=== PATIENT | male | born 1945 | race Caucasian/White ===

== ENCOUNTER 2019-08-18 12:52 | Inpatient (IN) | payer MEDICARE, OTHER ==
[~2019-08-18 12:52] MED LIST: Iopamidol-370 76% 500 ML 1 ML ONE
[2019-08-18] MEDS ORDERED: Ondansetron PF 4 MG/2 ML Vial ONE ×2 (13:34)
[2019-08-18 13:53] LABS: #Basophils 0.1 thou/uL (0.0-0.2); #Eosinphils 0.1 thou/uL (0.0-0.7); #Neutrophils 8.6 thou/uL (1.40-6.50); %Basophils 0.8 % (0.0-1.0); %Eosinophils 0.9 % (0.0-10.0); %Lymphocytes 16.9 % (21.0-51.0); %Monocytes 8.5 % (0.0-10.0); %Neutrophils 72.9 % (42.0-75.0); Hemoglobin 14.6 g/dL (14.0-18.0); Mean Corpuscular HGB CONC 33.8 g/dL (32.0-36.0); Mean Corpuscular Hemoglobin 29.8 pg (27.0-31.0); Mean Corpuscular Volume 88.1 fL (78.0-98.0); Mean Platelet Volume 9.4 fL (7.4-10.4); Platelet Count 248 thou/uL (130-400); Red Blood Cell (RBC) Count 4.91 mill/uL (4.70-6.10); White Blood Cell (WBC) Count 11.8 thou/uL (4.8-10.8)
--- NOTE | 2019-08-18 14:04 | RAD ---
XR Chest 1 View Portable History: Altered mental status Comparison: None. Findings: Lungs are mildly hyperinflated. Bilateral upper lobe spiculated nodules. Heart size upper l imits of normal. No acute osseous abnormality. No acute osseous abnormality. Impression: Bilateral upper lobe worrisome nodules for which CT chest recommended.
[2019-08-18 14:14] LABS: ALT (SGPT) 24 U/L (8-55); AST (SGOT) 30 U/L (5-34); Albumin 4.1 g/dL (3.4-4.8); Alkaline Phosphatase 109 U/L (40-110); Anion Gap 15 mmol/L (10-20); BUN (Urea Nitrogen) 11 mg/dL (8.4-25.7); Bilirubin, Total 0.9 mg/dL (0.2-1.2); CK (CPK) 167 U/L (30-200); Calc. Creatinine Clearance 0 mL/min (70-130); Calcium 8.9 mg/dL (7.8-10.44); Carbon Dioxide 20 mmol/L (23-31); Chloride 106 mmol/L (98-107); Estimated GFR-MDRD Greater than 90; Globulin 2.5 g/dL (2.4-3.5); Glucose 196 mg/dL (83-110); Lipase 8 U/L (8-78); Potassium 4.5 mmol/L (3.5-5.1); Protein, Total 6.6 g/dL (5.8-8.1); Sodium 136 mmol/L (136-145)
--- NOTE | 2019-08-18 14:24 | CT ---
CT Brain WO Con HISTORY: Altered mental status. COMPARISON: None. FINDINGS: There is generalized ventricular and sulcal prominence. There is calcification within the b rainstem incidentally noted. There is decreased attenuation to the periventricular white matter consistent with chronic white matter change. There is an area of decreased attenuation in the right side of the cerebellum which would suggest an acute to subacute infarct. There is marked right maxillary sinus mucosal change, also some bilateral ethmoid air cell changes. IMPRESSION: An area of decreased attenuation the right side of the cerebellum most suggestive of an a cute to subacute infarct, less likely a mass. Findings telephoned to Dr. Koo.
[2019-08-18 14:53] LABS: Acetaminophen Less than 6.0 mcg/mL (10.0-30.0); Alcohol Less than 10 mg/dL (Less than 10); Salicylate Less than 8.0 mg/dL (15.0-30.0)
[2019-08-18] MEDS ORDERED: Labetalol HCl 100 MG/20 ML VIAL SLOW IVP PRN (15:44)
--- NOTE | 2019-08-18 16:22 | CT ---
CT CHEST WITH CONTRAST CLINICAL INDICATION: Evaluate lung nodules. Left arm weakness. Prior chest x-ray suggested bilateral upper lobe pulmonary nodules. COMPARISON: None FINDINGS: Aorta: Vascular calcifications are seen in the thoracic aorta. The thoracic aorta is normal in calibe r without evidence of an aortic dissection. Lungs: Bullous emphysematous changes are seen in the upper lung zones. Linear areas of scarring are s een in each lung apex as well as upper lobes bilaterally. Prominent irregular linear densities are seen in the left upper lobe/lung apex with associated small nodular appearing density measuring appro ximately 9 mm. This could be attributable to scarring in the left lung apex and left upper lobe. A 9 mm pulmonary nodule with slightly spiculated margins is seen in the right upper lobe adjacent to the prominent bullous emphysematous changes. No additional discrete pulmonary nodule or mass is seen. No pleural effusion is identified. Mediastinum: No enlarged mediastinal lymph nodes are seen by CT size criteria. Minimal increase in so ft tissue density seen in the right hilar region which could be related to mild prominence of lymph nodes in this region. Thyroid gland: An 11 mm hypodense nodule is seen in the left lobe of the thyroid gland. Follow-up thy roid ultrasound is recommended on a nonemergent basis. Osseous structures: Degenerative changes are seen in the spine. There is a mild compression fracture of the T11 vertebral body of indeterminate age but may be more remote in origin. No lytic or sclerotic osseous lesions are identified. Chest wall: No abnormality visualized. Upper abdomen: Increased density is seen layering dependently within the gallbladder lumen likely rel ated to multiple gallbladder calculi. Remainder of the visualized upper abdomen demonstrates a normal CT appearance for phase of imaging. IMPRESSION: 1. Spiculated appearing 9 mm pulmonary nodule right upper lobe. A PET CT scan examination may be bene ficial for further evaluation. 2. Findings which are thought to most likely be attributable to scarring in the left upper lobe and l eft lung apex although there is slight nodularity present measuring 9 mm. This can also be reevaluated on PET CT scan examination. 3. Left thyroid nodule measuring 11 mm. Nonemergent thyroid ultrasound is recommended. 4. Chronic lung changes. 5. Questionable mild prominence in right hilar lymph nodes. 6. Cholelithiasis.
--- NOTE | 2019-08-18 16:51 | HP ---
CHIEF COMPLAINT: Inability to walk. HISTORY OF PRESENT ILLNESS: This patient is a 74-year-old male with strong family history of cancer, history of smoking, and a skin lesion on his chin that has been present for over 10 years. The patient does not see physicians and says the last time to see a physician was about 11 years ago when his and he needed something to help him sleep briefly. The patient was in his usual state of health on Sunday. He lives with his son and they come to town on Fridays to do their shopping. They reported that he was doing fine at that time, but by that evening, the patient reported that he was unable to walk. He has been unable to walk through the weekend, Sunday night he also had some associated nausea and vomiting. He denies any specific sense of weakness, although he does have some tingling in his left arm and occasionally he feels numb or a bit weak. The family also reports today that he called his daughter and told her he was worried that he had a stroke. At that time, his vision was very altered. She had a difficult time understanding him and felt like he was disoriented. REVIEW OF SYSTEMS: The patient has lost about 40 pounds. He says it is over a long stretch of time and family says it has been more recent. He has normal bowel and bladder habits, very poor appetite, very poor p.o. intake. He denies significant coughing or choking, although occasionally he does cough with his snuff. All other systems reviewed all pertinent positives and negatives noted in the HPI. PAST MEDICAL HISTORY: Notable for the skin lesion growing on his right chin for over 10 years. PAST SURGICAL HISTORY: He had back surgery remotely. FAMILY HISTORY: Mother had lung cancer, colon cancer. Sister has colon cancer. SOCIAL HISTORY: The patient smoked more than a pack of cigarettes per day. Quit about 4 years ago. He has been dipping snuff since that time. Denies alcohol or drugs. His about a decade ago. His daughter would be his surrogate decision maker. He is full code. CURRENT MEDICATIONS: None. ALLERGIES: NONE. PHYSICAL EXAMINATION: VITAL SIGNS: On arrival, BP 167/93, currently 164/119; respirations 20, temperature 97.7, O2 saturations 94% on room air. GENERAL APPEARANCE: Age-appropriate male. He is in no distress. He is awake, alert. He is appropriate, conversant. His speech is very slightly difficult to understand. HEENT: He has small abrasion on the top of his right scalp and he has the lesion growing on the right chin area which basically looks like a large scab. He has no OP lesions. Very few teeth. Poor dentition. NECK: Supple and symmetric without lymphadenopathy, JVD, or bruits. HEART: Regular rate and rhythm without murmurs, gallops, or rubs. LUNGS: Diminished throughout without wheezes or rales with fair air exchange. ABDOMEN: Soft, nontender, and nondistended. Positive bowel sounds. No masses. No organomegaly. EXTREMITIES: No cyanosis, clubbing, or edema. NEURO: The patient moves all extremities spontaneously. Cranial nerves are intact. He has fairly normal speech pattern. EXTREMITIES: Appear to have normal strength without focal deficits. PSYCH: Normal affect and behavior. LABORATORY DATA: White count 11.8, hemoglobin 14.6, platelets 248. Sodium 136, potassium 4.5, chloride 106, CO2 of 20, BUN 11, creatinine 0.75, glucose 196, lactic acid 2.4, calcium 8.9, AST 30, ALT 24, alkaline phosphatase 109, ammonia 21. Troponin less than 0.01. Albumin is 4.1, lipase 8. TSH 1.19. Salicylates, acetaminophen, and plasma alcohol all negative. Flu screen negative. Brain CT, there is an area of decreased attenuation in the right side of the cerebellum, most suggestive of an acute to subacute infarct, less likely a mass. Chest x-ray, bilateral upper lobes worrisome for nodules. CT is recommended. EKG shows right bundle branch block, posterior fascicular block. IMPRESSION AND PLAN: 1. Acute cerebellar cerebrovascular accident, manifest with inability to walk and associated falls. The patient is going to be started on a statin and aspirin. Stroke team will be consulted. Neurology consulted. It is likely subacute with this occurring likely on Sunday. Also concerning for the possibility of a metastatic lesion. We will obtain MRI of the brain. We will go ahead and get echocardiogram, carotid Dopplers. 2. Abnormal chest x-ray and the patient with a history of significant tobacco abuse and strong family history of cancer. We will obtain a CT of the chest with and without contrast. 3. Skin lesion in the right chin consistent with cancer, difficult to tell at this point if it is basal cell versus squamous cell, but certainly could be a source of metastatic disease as well. Unfortunately, the biopsy of this lesion may not give us the full answer as to what is going on with the lungs if there does appear to be metastatic lesions. 4. Hypertension. The patient's baseline is not known, this likely in response to his acute cerebrovascular accident. We will have some permissive hypertension orders in place. 5. Bifascicular block on EKG. We will await the results of his echocardiogram to make further determinations on treatment there. Job ID: [id number] [facility]
[2019-08-18 17:35] LABS: Lactic Acid 2.2 mmol/L (0.5-2.2)
--- NOTE | 2019-08-18 18:51 | MRI ---
MRI BRAIN WITHOUT CONTRAST: HISTORY: Left-sided weakness. Stroke. COMPARISON: CT head also obtained on this date. FINDINGS: As noted on the CT scan examination, there is an area of increased FLAIR and T2 weighted signal inten sity seen in the right cerebellar hemisphere, which does demonstrate restricted diffusion and is sugg estive of an acute to early subacute right cerebellar infarction. The area of acute to subacute infar ction also involves a portion of the right cerebellar peduncle, as well as the right aspect of the mi d brain. No additional acute infarction is seen. There are scattered punctate and patchy areas of increased FLAIR and T2 weighted signal intensity in the periventricular and subcortical white matter, which are nonspecific but likely reflective of dicer operator rome small vessel ischemic changes. There is a focus of increased density seen within the doroteo on the CT scan examination, which is repre sented by a subtle area of diminished signal intensity on the T2 and gradient echo images and this is again likely related to calcification. Mild cerebral and cerebellar volume loss is present. The septum pellucidum and third ventricle are in the midline. The ventricular system is normal in size, shape and position for the degree of sulcal a trophy. There is ectasia of the distal left vertebral artery and basilar artery. The right vertebral artery p robably terminates in PICA. There are otherwise grossly appropriate flow voids demonstrated at the ba se of the brain. Mucosal thickening is seen in the sphenoid sinuses bilaterally and greater involving the right maxill miriam antrum as well as ethmoidal air cells. [place] lenses are not visualized bilaterally. Degenerative changes are seen in the visualized upper cervical spine. IMPRESSION: 1. Acute to early subacute infarction in the right cerebellar hemisphere and involving a portion of t he right middle cerebellar peduncle as well as a small portion of the right aspect of the mid brain. 2. Chronic small vessel ischemic changes and cerebral volume loss. 3. Ectasia of the left vertebral and basilar artery. 4. Sinus disease. POS: OFF
[2019-08-18] MEDS: Atorvastatin Calcium 40 MG TAB PO SCH (21:18)
[2019-08-18] MEDS: Sodium Chloride 0.9% 1,000 ML IV SCH (21:21)
[2019-08-19 05:20] LABS: Cardiac Risk 4.7 (Less than 4.5)
[2019-08-19] MEDS ORDERED: Prevnar 13-Val Conj/PF 0.5 ML SYRINGE IM ONE (09:00)
[2019-08-19] MEDS ORDERED: FLU VACC TS2019-20(65YR UP)/PF 180 MCG/0.5 ML SYRINGE IM ONE (09:00)
[2019-08-19] MEDS: Aspirin 325 mg Enteric Coated Tablet PO SCH (09:46)
[2019-08-19] MEDS: Sodium Chloride 0.9% 1,000 ML IV SCH ×2 (09:46→22:17)
--- NOTE | 2019-08-19 10:57 | PRG ---
DATE OF SERVICE: 08/19/2019 SUBJECTIVE: The patient is seen and examined at the bedside. He is very tired after his PT. He walked barely to the door and back with a walker and he is exhausted. OBJECTIVE: VITAL SIGNS: Blood pressure is 133/85, pulse is 93, temperature is 98.2, respirations 20, and O2 saturation is 96% on room air. HEENT: His head is atraumatic and normocephalic. Eyes are PERRLA. Sclerae are nonicteric. Oral mucosa is slightly dry. NECK: Supple. LUNGS: Clear. HEART: S1, S2 normal. No S3. No S4. No any murmur. ABDOMEN: Soft, nontender, nondistended. EXTREMITIES: No clubbing, cyanosis, or edema. NEUROLOGIC: He is following my commands. He moves his all 4 extremities. I do not appreciate much of any motor deficits. Cranial nerves are intact. LABORATORY DATA: Triglycerides 143, cholesterol 140, LDL 81, HDL 30. IMPRESSION: 1. Acute cerebellar cerebrovascular accident. The patient is started on aspirin and statin. Neurology is consulted. It is pending. 2. Nodule of the right upper lobe. Pulmonary to be consulted. 3. Skin lesion on his vaz, status post recent bleeding, most likely cancerous growth, unknown etiology at this point. The workup is postponed since we prioritize and address the main issues first. 4. Hypertension. 5. Bifascicular block on EKG. Echocardiogram is pending. 6. Thyroid nodule. Thyroid ultrasound for further evaluation later during this hospitalization or outpatient basis. Job ID: [id number]
[2019-08-19] MEDS: Ondansetron PF 4 MG/2 ML Vial IVP PRN (11:33)
--- NOTE | 2019-08-19 16:48 | ULT ---
Carotid duplex sonogram HISTORY: CVA. Vascular disease. FINDINGS: Right: Mild plaque. Color and spectral Doppler evaluation, peak systolic velocity of 76 cm/s, and IC to CC ratio of 1.1 suggest no hemodynamically significant stenosis within the extracranial right ICA. Antegrade flow within the vertebral artery. Left: Scattered plaque. Color and spectral Doppler evaluation, peak systolic velocity of 86 cm/s, and IC to CC ratio 0.9 suggest no hemodynamically significant stenosis within the extracranial left ICA. Antegrade flow within the vertebral artery. IMPRESSION: Atherosclerosis. No sonographic evidence of significant extracranial ICA stenosis.
[2019-08-19] MEDS: Atorvastatin Calcium 40 MG TAB PO SCH ×2 (22:20→22:22)
--- NOTE | 2019-08-19 23:32 | CON ---
DATE OF CONSULTATION: 08/19/2019 IMPRESSION: 1. Right cerebellar stroke. 2. Possible lung cancer. PLAN: 1. Continue aspirin and statin as you have undertaken. 2. Review echocardiogram. HISTORY OF PRESENT ILLNESS: Mr. Carmona is a 74-year-old man who developed symptoms this past weekend. He reported feeling ill and was nauseous and vomited. He was very nonspecific about his symptoms. He decided at some point that he thought he had had a stroke and decided to come to the hospital. His MRI revealed a right cerebellar infarct. He has some moderate small-vessel ischemic changes as well and there is vertebral artery ectasia present as well. He has no past history of strokes. He dips tobacco and has not smoked in several years. There has been some weight loss of about 40 pounds over the last few months. The family has kind of attributed this to a poor appetite. There is a history of some hypertension, but he was not on any medication. PAST MEDICAL HISTORY: Otherwise negative. ALLERGIES: NONE REPORTED. SOCIAL HISTORY: Dips tobacco. FAMILY HISTORY: Noncontributory. REVIEW OF SYSTEMS: Ten-system review of systems was not obtainable due to the patient's uncooperative state. PHYSICAL EXAMINATION: GENERAL: He is a somewhat overweight elderly man, lying in bed quietly. HEENT: Normocephalic and atraumatic. NECK: Supple. EXTREMITIES: No cyanosis. NEUROLOGIC: He would nod his head to questions. I could not get him to verbalize. He was not willing to cooperate with exam, otherwise. Speech Therapy has done an assessment, he had aspiration when checked this morning. IMAGING STUDIES: EKG shows a bifascicular block. Carotid ultrasound shows no significant areas of stenosis. Cholesterol ratio was 4.7. SUMMARY: Agree with current management. He will possibly need inpatient rehab, but I would expect a good prognosis for recovery given the location of his stroke. Job ID: [id number]
[2019-08-20] MEDS: Sodium Chloride 0.9% 1,000 ML IV SCH ×2 (01:21→19:01)
[2019-08-20] MEDS: Aspirin 325 mg Enteric Coated Tablet PO SCH (09:00)
[2019-08-20] MEDS ORDERED: Dextrose 5% in Water 1,000 ML IV PRN (09:34)
[2019-08-20] MEDS ORDERED: Dextrose 50 % In Water 50 ML SYRINGE IV PRN (09:34)
[2019-08-20] MEDS ORDERED: PROPOFOL 200 MG/20 ML VIAL ONE (09:59)
[2019-08-20] MEDS ORDERED: Carvedilol 3.125 MG TAB PO SCH (10:00)
--- NOTE | 2019-08-20 10:22 | RAD ---
EXAM: Modified barium swallow with speech therapist HISTORY: Feeding difficulties and dysphasia FINDINGS/IMPRESSION: A modified barium swallow was performed by the speech therapist. A video was performed. Aspiration wa s seen with thin liquids, nectar thick liquids, and honey thick liquids. Please see dedicated speech therapy report for specific findings and recommendations.
--- NOTE | 2019-08-20 10:24 | CON ---
DATE OF CONSULTATION: 08/20/2019 SERVICE: Pulmonary Medicine. REASON FOR CONSULT: Pulmonary nodule. HISTORY OF PRESENT ILLNESS: The patient is a 74-year-old male with past medical history significant for smoking and emphysema. He presented to the hospital with stroke-like symptoms and was ultimately discovered to have a cerebellar lesion. He is recovering from that with physical therapy and occupational therapy. Either way, during investigation, he had an abnormal chest x-ray. This prompted a CT of the chest, which showed a small 9 mm spiculated nodule in the left upper lobe. This has never been identified or addressed before. He denies any hemoptysis, significant weight reduction, night sweats. Otherwise, he is in his usual state of health. PAST MEDICAL HISTORY: 1. CVA. 2. This patient is estranged from the medical community. PAST SURGICAL HISTORY: Back surgery. FAMILY HISTORY: Noncontributory. SOCIAL HISTORY: He quit smoking about four years ago, but prior to that, he logged about 40 to 45 pack year history of smoking. He has been using some snuff. Denies any significant alcohol. He has never used any illicit drugs. He has no exposures to chemicals, dust, asbestos, or tuberculosis that he is aware of. ALLERGIES: CODEINE. MEDICATIONS: List of his inpatient medications was reviewed. No specific updates were made at this time. REVIEW OF SYSTEMS: General, head, ears, eyes, nose, throat, cardiovascular, respiratory, GI, , musculoskeletal, neurologic, and skin is negative except as mentioned in the HPI. PHYSICAL EXAMINATION: VITAL SIGNS: Afebrile, pulse 87, blood pressure 154/82, respirations 20, and saturation 96%, currently on room air. GENERAL: The patient is awake and alert, in no apparent distress. LUNGS: Very good air entry. There is a prolonged expiratory phase, but I do not appreciate any wheezing. No crackles or rhonchi appreciated. HEART: Normal rate. Regular. ABDOMEN: Soft, nontender, and nondistended. Bowel sounds are positive. MUSCULOSKELETAL: No cyanosis or clubbing. No pitting in the bilateral lower extremities. LABORATORY DATA: WBC 11.8, hemoglobin 14.6, and platelets 248,000. Lactate is downtrending to 2.2 and ammonia is normal. Troponin and TSH are unremarkable. Lipid profile is remarkably normal. Basic metabolic profile, liver function studies, BNP, and lipase are all also unremarkable. Salicylates, acetaminophen , and alcohol level are all low. One out of two blood cultures growing a likely contaminant. Influenza A and B are negative. IMAGIN. CT of the brain demonstrates a lesion in the right cerebellum. 2. MRI of the brain confirms likely acute to subacute CVA of the right cerebellum. 3. CT of the chest demonstrates a spiculated biapical nodule in the upper lobes. This is in a region, possibly consistent with scar tissue. In addition to this , the patient has [id number] emphysematous changes throughout bilateral lung hall. ASSESSMENT: 1. Emphysema based on CT scan. 2. Pulmonary nodules. 3. Cerebrovascular accident, recent. DISCUSSION AND PLAN: At this point, the patient has about a 20% chance of this being a malignancy. The fact that there is multiple nodules located in the biapical region suggests that we could be dealing with scar tissue; however. At this point, these are in challenging locations to sample. I would recommend just simply doing a PET scan in three months. I will have him return to clinic with me at that point in the outpatient setting. He has no further requirements for inpatient Pulmonary or Critical Care opinion, and I will sign off. Please call with additional questions or concerns through time. 70 minutes have been devoted to this patient in various activities. I personally reviewed all imaging studies and laboratory data noted within this document. For fifty percent of this time, I was interacting with the patient at the bedside or coordinating care with the care team. For the remainder of the time I was immediately available to the patient in the hospital unit. Job ID: [id number] [facility]
--- NOTE | 2019-08-20 10:30 | PRG ---
DATE OF SERVICE: 08/20/2019 SUBJECTIVE: The patient is seen examined at bedside. There were no any unexpected events overnight. It was noticed that he aspirates during the speech evaluation. OBJECTIVE: VITAL SIGNS: Blood pressure is 154/82, pulse is 87, temperature is 98.7, respiratory rate is 20, and O2 saturation is 96% on room air. NECK: Supple. LUNGS: Clear. HEART: S1 and S2 normal. No S3. No S4. ABDOMEN: Soft, nontender, nondistended. EXTREMITIES: No clubbing, cyanosis, or edema. He has good strength in upper and lower extremities. NEUROLOGIC: He follows my commands. He is alert and oriented x3. LABORATORY DATA: None today. Microbiology; one out of two cultures growing coagulase-negative Staphylococcus, which is most likely contaminant. Echocardiogram showed LVEF estimated at 50% to 55%, grade 1/3 diastolic dysfunction, mild mitral regurgitation, and mild tricuspid regurgitation. A carotid duplex sonogram showed atherosclerosis. No sonographic evidence of significant extracranial ICA stenosis. IMPRESSION: 1. Acute cerebrovascular accident. The patient was seen by Dr. Vang, and he agrees with current regimen with aspirin daily. He has some evidence of aspiration, so we will do swallow studies today and barium swallow study. 2. Pulmonary nodule, seen by Dr. Roa on consultation. The plan is to recheck the status of that problem in three months. 3. Skin growth on the chin. We will get Dr. Charles, plastic surgeon, to take a look at him and see whether this can be biopsied and diagnosed. 4. Hypertension. 5. Bifascicular block on EKG. Echocardiogram shows some mild systolic and diastolic dysfunction. 6. Congestive heart failure, compensated. 7. Thyroid nodule. Thyroid ultrasound will be done most likely on outpatient basis for further diagnostic workup. DISCUSSION: The patient most likely is going to recover from this CVA according to neurologist evaluation. He will need probably rehabilitation center stay. We will do barium swallow studies today to evaluate his swallowing for aspiration. He will have followup with Dr. Roa in three months on his lung nodule, and we will get Dr. Charles for plastic surgery evaluation of his skin growth on his chin, and I will start him on Coreg 3.125 mg twice a day for his heart. Job ID: [id number]
--- NOTE | 2019-08-20 12:33 | PQF ---
EMILIA SMITH SR, ZBIGNIEW A MD [id number] [facility] [id number] CLINICAL DOCUMENTATION IMPROVEMENT CLARIFICATION FORM: ICD-10 Updated PLEASE DO AN ADDENDUM TO THE PROGRESS NOTE WITH ANY DOCUMENTATION UPDATES OR ADDITIONS AND CARRY THROUGH TO DC SUMMARY. THANK YOU. Date: 08/20/2019 ATTN: DR. Torie MCMULLEN Please exercise your independent, professional judgment in responding to the clarification form. Clinical indicators are provided on the bottom of this form for your review. Please check appropriate box(s): [ ] Protein Calorie Malnutrition: [ ] Mild [ ] Moderate [ ] Severe [ ] Other Malnutrition (please specify) __ [ ] Underweight without malnutrition [ ] Cachexia [ ] Other diagnosis [ x] Unable to determine In addition, please specify: Present on Admission (POA): [ ] Yes [ ] No [ x] Unable to determine CLINICAL INDICATORS - SIGNS / SYMPTOMS / LABS / RESULTS AND LOCATION IN MR 08/18 H&P (FICKLEN) THE PATIENT HAS LOST ABOUT 40 PONDS, VERY POOR APPETITE, VERY POOR P.O. INTAKE. 08/19 ASSESSMENT: NUTRITION DIAGNOSIS MALNUTRITION EVIDENCED BY -24.1% WEIGHT LOSS IN UNSURE TIME FRAME, MILD MUSCLE WASTING OF CLAVICLE, TEMPORAL, SHOULDER, PATELLAR REGION, MILD FAT WASTING IN THIGHS SUGGESTIVE OF MALNUTRITION IN THE CONTEXT OF CHRONIC ILLNESS. 08/19 CONSULT (KEMAR) THERE HAS BEEN SOME WEIGHT LOSS OF 40 POUNDS OVER THE LAST FEW MONTHS. THE FAMILY HAS KIND OF ATTRIBUTED THIS TO POOR APPETITE. 08/20 MODIFIED BARIUM SWALLOW IMPRESSION: ASPIRATION WAS SEEN WITH THIN LIQUIDS , NECTAR LIQUIDS, AND HONEY THICK LIQUIDS. RISK: SEVERE DEHYDRATION, CVA RT CEREBELLAR (RD/08/19) ASPIRATION DURING SPEECH EVAL ( KEATON/NOELLE ) 08/20 TREATMENTS: DIETARY CONSULT 08/19 RD RECOMMENDS ENSURE ENLIVE 08/19 SPEECH MODIFIED BARIUM SWALLOW 08/20 Moderate Malnutrition (in acute illness) Energy Intake: <75% of estimated energy requirement for > 7 days Weight Loss: 1-2%/1 week; 5%/ 1 month; 7.5%/3 months Other: mild body fat loss; mild muscle mass loss; mild fluid accumulation; Severe Malnutrition (in acute illness) Energy Intake: < 50% of estimated energy requirement for > 5 days Weight Loss: >1-2%/1 week; >5%/1 month; >7.5%/3 months Other: moderate body fat loss; moderate muscle mass loss; moderate- severe fluid accumulation; measurably reduced bisque placer strength Moderate Malnutrition (in chronic illness) Energy Intake: <75% of estimated energy requirement for >1 month Weight Loss: 5%/1 month; 7.5%/3 months; 10%/6 months; 20%/1 year Other: mild body fat loss; mild muscle mass loss; mild fluid accumulation Severe Malnutrition (in chronic illness) Energy Intake: <75% of estimated energy requirement for >1 month Weight Loss: >5%/1 month; >7.5%/3 months; >10%/6 months; >20%/1 year Other: severe body fat loss; severe muscle mass loss; severe fluid accumulation ; measurably reduced bisque placer strength THANK YOU! MAX[employer] (This form is maintained as a part of the permanent medical record) 2014 [employer] All Rights Reserved [email or web address] [phone] [email or web address]
--- NOTE | 2019-08-20 15:01 | CON ---
DATE OF CONSULTATION: 08/20/2019 REASON FOR CONSULTATION: Request for PEG tube placement. HISTORY OF PRESENT ILLNESS: We were asked to Mr. Carmona by Dr. Broussard for PEG tube placement. He was admitted to the hospital on 08/18, for weakness, dysarthria, and inability to walk. Apparently, the patient became ill on Sunday, 3 days before that. He could not walk the weekend, had some nausea and vomiting, and ultimately came to the emergency room. He also has a history of 40-pound weight loss. Normal bowel and bladder habits. He has poor appetite and poor p.o. intake. Here at the hospital, he was noted to have an acute cerebrovascular accident, seen by Neurology. There have also been issues with abnormal chest x-ray. Skin lesion on the chin concerning for a skin cancer which has been present for 10 years and findings of COPD. The patient has not progressed in his ability to swallow and failed a modified swallow. Speech Pathology has been asked today to place a PEG tube. REVIEW OF SYSTEMS: As per HPI. PAST MEDICAL HISTORY: Noted for a skin lesion on his chin for about 10 years, new diagnosis of COPD, and new diagnosis of concerning lung mass. PAST SURGICAL HISTORY: Back surgery remotely. FAMILY HISTORY: Mother had lung cancer and colon cancer. Sister has colon cancer. SOCIAL HISTORY: The patient smoked for many years quitting 4 years ago. He started dipping about that time. He denies alcohol or drugs. His about a decade ago. His daughter is at the bedside. CURRENT MEDICATIONS: Here in the hospital: 1. Aspirin. 2. Atorvastatin. 3. Coreg. 4. D5W. 5. Humulin sliding scale. 6. Labetalol. 7. Normal saline at 50 an hour. 8. Zofran p.r.n. PHYSICAL EXAMINATION: VITAL SIGNS: Temperature is 98, pulse 92, blood pressure 140/67. GENERAL: He is resting in bed. He is in no distress. NECK: Supple. He does have scab on his chin right below his bottom lip. NECK: Supple without nodes. LUNGS: Clear with some crackles in the bases, slight expiratory wheeze. ABDOMEN: Soft and nontender with no palpable hepatosplenomegaly. EXTREMITIES: No clubbing, cyanosis, or edema. LABORATORY STUDIES: White count is 11.8, hemoglobin 14.6, platelet count 248 on admission. Last labs on the , sodium 136, potassium 4.5, BUN and creatinine 11 and 0.75. Liver function tests, normal. Lipase was 8. TSH 1.19. Ammonia 21. Chest CT; there are some bullous emphysematous changes. Calcifications of the thoracic aorta. 9 mm nodular density in the left upper lung. 9 mm pulmonary nodule, spiculated, in the right upper lung. Mediastinum, no adenopathy. Possible prominent lymph node in the right hilar region. Thyroid shows an 11 mm hypodense nodule, left lobe of the thyroid. Compression fracture at T11. Gallstones are noted. ASSESSMENT: 1. Status post cerebrovascular accident with inability to swallow or get food in. We have been requested to place the PEG tube. I have talked to the family about the risks, benefits, and possible complications including perforation, bleeding, reaction to medication, aspiration, and infection. I also discussed the fact that he is still at risk for aspiration with the PEG tube. They understand this and wished to proceed. 2. Family history of colon cancer. Sometime in the future, colonoscopy for screening will be warranted, but not now. 3. Evaluation of lung and thyroid lesions will be deferred to primary service. 4. Regarding the gallstones, they do not seem to be asymptomatic. 5. May reasonable to start some type of ulcer prophylaxis with this patient, and we will order this depending on the findings of his EGD. Job ID: [id number]
[2019-08-20] MEDS: Carvedilol 3.125 MG TAB PO SCH (18:58)
[2019-08-20 20:27] LABS: #Basophils 0.1 thou/uL (0.0-0.2); #Eosinphils 0.1 thou/uL (0.0-0.7); #Lymphocytes 1.3 thou/uL (1.20-3.40); #Monocytes 1.3 thou/uL (0.11-0.59); #Neutrophils 12.3 thou/uL (1.40-6.50); %Basophils 0.6 % (0.0-1.0); %Eosinophils 0.9 % (0.0-10.0); %Lymphocytes 8.6 % (21.0-51.0); %Monocytes 8.7 % (0.0-10.0); %Neutrophils 81.3 % (42.0-75.0); Hemoglobin 14.4 g/dL (14.0-18.0); Mean Corpuscular HGB CONC 34.7 g/dL (32.0-36.0); Mean Corpuscular Hemoglobin 30.2 pg (27.0-31.0); Mean Corpuscular Volume 87.1 fL (78.0-98.0); Mean Platelet Volume 8.7 fL (7.4-10.4); Platelet Count 209 thou/uL (130-400); RBC Distribution Width 12.1 % (11.5-14.5); Red Blood Cell (RBC) Count 4.76 mill/uL (4.70-6.10); White Blood Cell (WBC) Count 15.1 thou/uL (4.8-10.8)
[2019-08-20] MEDS: Acetaminophen 650 MG/20.3 ML UDCUP PO PRN (20:31)
[2019-08-20] MEDS: Atorvastatin Calcium 40 MG TAB PO SCH (20:31)
[2019-08-20 20:53] LABS: ALT (SGPT) 21 U/L (8-55); AST (SGOT) 26 U/L (5-34); Albumin 3.8 g/dL (3.4-4.8); Alkaline Phosphatase 113 U/L (40-110); Anion Gap 13 mmol/L (10-20); BUN (Urea Nitrogen) 8 mg/dL (8.4-25.7); Bilirubin, Total 1.2 mg/dL (0.2-1.2); Calc. Creatinine Clearance 95 mL/min (70-130); Calcium 8.6 mg/dL (7.8-10.44); Carbon Dioxide 21 mmol/L (23-31); Chloride 105 mmol/L (98-107); Estimated GFR-MDRD Greater than 90; Globulin 2.7 g/dL (2.4-3.5); Glucose 156 mg/dL (83-110); Potassium 3.9 mmol/L (3.5-5.1); Protein, Total 6.5 g/dL (5.8-8.1); Sodium 135 mmol/L (136-145)
[2019-08-21] MEDS: Sodium Chloride 0.9% 1,000 ML IV SCH (03:48)
[2019-08-21] MEDS: Ondansetron PF 4 MG/2 ML Vial IVP PRN (03:48)
[2019-08-21 05:16] LABS: Hemoglobin 13.5 g/dL (14.0-18.0)
[2019-08-21] MEDS: HumaLOG 300 UNITS/3 ML VIAL SC PRN ×3 (06:51→17:17)
[2019-08-21] MEDS: Aspirin 325 mg Enteric Coated Tablet PO SCH (09:30)
[2019-08-21] MEDS: Carvedilol 3.125 MG TAB PO SCH ×2 (09:30→17:17)
[2019-08-21] MEDS: Famotidine/PF 20 mg/2ml Vial SLOW IVP SCH (09:31)
[2019-08-21] MEDS: Nicotine 14 MG PATCH TOP SCH (09:31)
--- NOTE | 2019-08-21 10:10 | CT ---
EXAM: CT head without contrast: INDICATIONS: Evolving infarct COMPARISON: 08/18/2019 CT. MRI 08/18/2019. FINDINGS: Lucency in the right cerebellum is again noted consistent with the area of infarct noted on MRI. No significant change in size or extent of the right cerebellar infarct. No hemorrhage. IMPRESSION: Right cerebellar infarct again noted. There has been mild increase lucency since prior ex am indicating evolution.
--- NOTE | 2019-08-21 11:02 | PRG ---
DATE OF SERVICE: 08/21/2019 SUBJECTIVE: The patient was seen and examined at the bedside. He is not doing well. He vomited. The family noticed that his left arm is not strong like it used to be since last night. His PEG tube was placed yesterday by press catcher, and he started on feeding. He is up to 40 mL per hour. OBJECTIVE: VITAL SIGNS: Blood pressure is 164/88, temperature is 99.1, pulse is 90, respirations 19, and O2 saturation is 91% on room air. HEENT: His head is atraumatic and normocephalic. His pupils responding to light properly. Conjunctivae are pinkish. NECK: Supple. LUNGS: Clear. HEART: S1, S2 normal. No S3. No S4. ABDOMEN: Soft, nontender, nondistended. PEG tube is in place. Bowel sounds are present. EXTREMITIES: No clubbing, cyanosis, or edema. NEUROLOGIC: He follows my commands. He moves his all 4 extremities, but his left upper arm is significantly weaker than it was yesterday. It is probably about 4/5, and the left lower extremity is almost normal. LABORATORY DATA: Hemoglobin of 13.5, hematocrit of 40.5. Glycemia is ranging from 150 to 156. Speech modified barium swallow from yesterday showed aspiration seen with thin liquids, nectar-thick liquids, and honey-thick liquids. IMPRESSION: 1. Acute cerebrovascular accident of the right side cerebellum with some new finding weakness in the left upper extremity. We will do CT of the brain without contrast stat. We will continue aspirin 325 mg once a day and statin. The patient failed his modified barium swallow studies and press catcher, Dr. Fritz, was consulted, and he put the PEG tube. The patient was started on feeding. He vomited x1, so we are going to slow down his feeding rate to more acceptable and maybe this is going to be enough to prevent his vomiting. His abdomen is soft and not suggestive of any other problem. 2. Pulmonary nodule, for followup on outpatient basis with PET scan in 3 months. 3. Skin growth on the chin. We were not able to get a plastic surgeon or mine inspector to be consulted because there is nobody on-call. 4. Hypertension. 5. Bifascicular block on electrocardiogram with some mild diastolic and systolic dysfunction. 6. Congestive heart failure, compensated. 7. Thyroid nodule, for thyroid ultrasound on outpatient basis for further workup. 8. Nicotine dependence. DISCUSSION: The patient developed a new finding weakness in the left upper extremity. We will do the CT of the brain without contrast stat. Continue aspirin and statin. Continue his Coreg, small dose, and we are going to slow down on his feeding rate and watch him for further vomiting. Job ID: [id number]
--- NOTE | 2019-08-21 12:20 | PRG ---
DATE OF SERVICE: 08/21/2019 SUBJECTIVE: Mr. Carmona had a PEG tube placed yesterday. He did have a little bit of regurgitation last night, so tube feeds have been slowed. He is tolerating this now. OBJECTIVE: VITAL SIGNS: Temperature 98, pulse 93, blood pressure 163/86. GENERAL: The patient is fairly somnolent. He will open his eyes. Able to talk to me. ABDOMEN: Soft and nontender. PEG tube site is warm and dry with no evidence of erythema or exudate. LABORATORY DATA: Hemoglobin is 13.5, it was 14.4 yesterday. ASSESSMENT: Cerebrovascular accident with oropharyngeal dysphagia, status post PEG tube placement. No evidence of hematoma. Stable hemoglobin. He has had some difficulty with feeds and they slowed the rate. PLAN: For now, I will sign off. I can be of further assistance. If you have any questions with the PEG tube, please do not hesitate to contact me. Job ID: [id number]
[2019-08-21] MEDS: Acetaminophen 650 MG/20.3 ML UDCUP PO PRN (17:17)
[2019-08-21] MEDS: Atorvastatin Calcium 40 MG TAB PO SCH (21:47)
[2019-08-22] MEDS: Sodium Chloride 0.9% 1,000 ML IV SCH (02:36)
[2019-08-22] MEDS: HumaLOG 300 UNITS/3 ML VIAL SC PRN ×3 (07:09→19:24)
--- NOTE | 2019-08-22 07:55 | OP ---
DATE OF PROCEDURE: 08/20/2019 PREOPERATIVE DIAGNOSIS: CVA, oropharyngeal dysphagia. POSTOPERATIVE DIAGNOSIS: PEG tube placement by Ponsky pull technique. ANESTHESIA: TIVA. ANTIBIOTICS: Ancef 2 g IV prophylaxis. RECOMMENDATIONS: Start tube feeds in 4 hours, start using the PEG for medications now. He has abdominal binder for 2 weeks. The patient does not follow up PEG tube inadvertently. Clean and dress the PEG tube daily with soap and water. PROCEDURE IN DETAIL: Patient was informed of the risks, benefits, and possible complication of endoscopy including perforation, reaction to medication, aspiration. Informed consent was obtained. The patient was brought to the endoscopy suite, where he was sedated in gradual fashion. Once he was comfortable, a bite-block was placed inside the orifice. The endoscope was advanced through the esophagus, stomach, second and third portions of the duodenum, slowly removed. A good place for PEG tube placement was identified by transillumination and finger indentation. The PEG tube was placed by pull technique. Forward and retroflexed views of stomach were normal. The duodenum was normal. Esophagus normal. The scope was removed. The patient tolerated the procedure well. No complications. Job ID: [id number]
[2019-08-22] MEDS: Aspirin 325 mg Enteric Coated Tablet PO SCH (09:45)
[2019-08-22] MEDS: Famotidine/PF 20 mg/2ml Vial SLOW IVP SCH (09:45)
[2019-08-22] MEDS: Carvedilol 3.125 MG TAB PO SCH ×2 (09:45→18:00)
[2019-08-22] MEDS: Nicotine 14 MG PATCH TOP SCH (09:46)
[2019-08-22 11:41] LABS: #Basophils 0.1 thou/uL (0.0-0.2); #Eosinphils 0.4 thou/uL (0.0-0.7); #Lymphocytes 1.6 thou/uL (1.20-3.40); #Monocytes 1.1 thou/uL (0.11-0.59); #Neutrophils 7.9 thou/uL (1.40-6.50); %Lymphocytes 14.3 % (21.0-51.0); %Monocytes 9.5 % (0.0-10.0); %Neutrophils 71.2 % (42.0-75.0); Mean Corpuscular HGB CONC 33.6 g/dL (32.0-36.0); Mean Corpuscular Hemoglobin 29.5 pg (27.0-31.0); Mean Corpuscular Volume 87.8 fL (78.0-98.0); Platelet Count 206 thou/uL (130-400); RBC Distribution Width 12.4 % (11.5-14.5); Red Blood Cell (RBC) Count 4.73 mill/uL (4.70-6.10); White Blood Cell (WBC) Count 11.1 thou/uL (4.8-10.8)
[2019-08-22 12:03] LABS: Anion Gap 11 mmol/L (10-20); BUN (Urea Nitrogen) 10 mg/dL (8.4-25.7); Calc. Creatinine Clearance 99 mL/min (70-130); Calcium 8.6 mg/dL (7.8-10.44); Carbon Dioxide 24 mmol/L (23-31); Chloride 104 mmol/L (98-107); Estimated GFR-MDRD Greater than 90; Glucose 200 mg/dL (83-110); Sodium 135 mmol/L (136-145)
--- NOTE | 2019-08-22 13:33 | PRG ---
DATE OF SERVICE: 08/22/2019 SUBJECTIVE: The patient is seen and examined at the bedside. Two daughters present at the bedside. He is more drowsy this morning, although last night he was able to be more awake and was able to raise his left hand half way. He is tolerating his feeding well. He did not vomit anymore. OBJECTIVE: VITAL SIGNS: Blood pressure is 126/60, pulse is 83, respiratory rate is 20, and O2 saturation is 94% on nasal cannula, temperature is 98, maximal temperature is 99. HEENT: He is able to open his eyes and he follows my commands. His pupils are small, approximately 2 mm with small reaction to light. Conjunctivae are pinkish. Sclerae are nonicteric. Oral mucosa is somewhat dry. LUNGS: Clear. HEART: S1, S2 normal. No S3. No S4. ABDOMEN: Soft, nontender, nondistended. EXTREMITIES: No clubbing, cyanosis, or edema. NEUROLOGICAL: He is quite comatose, but arousable. He has some weakness in the left upper extremity which is probably around 2/5 and the left lower extremity which is 4/5 or less but he follows my commands. Sounds like he is comprehending what he is asked to do. LABORATORY DATA: White count of 11.1, hemoglobin 14.0, hematocrit 41.6, platelet count is 208,000, sodium of 135, and the rest of chemistry is within normal limits except for glycemia which is ranging from 183-211, calcium is 8.6. The followup CT of the brain, which was done yesterday because of probable expansion of the right cerebellar infarct did not really show any extension of the problem, which showed just mild increased lucency since prior examination indicating evolution of the infarct. IMPRESSION: 1. Acute cerebellar infarct in the right hemisphere or cerebellum with some possible extension of that affecting left upper extremity and to some extent left lower extremity, but with negative CT of the brain in terms of further expansion of that process. We will continue on 325 mg of aspirin and statin through the PEG tube. 2. Pulmonary nodule, followup PET scan in three months on outpatient basis. 3. Skin growth which looks most likely cancerous, to be followed on outpatient basis with jewelry finisher with biopsy. 4. Hypertension. 5. Congestive heart failure, compensated. 6. Thyroid nodule, thyroid ultrasound to be done on outpatient basis. 7. Oropharyngeal dysphagia, secondary to cerebrovascular accident, status post PEG tube placement. The patient is tolerating feeding well. We are going to increase the rate until 70 mL/h is reached. The rate of advancement was decreased to 5 mL every 4 hours until 70 mL/h is reached. 8. Nicotine dependence. PLAN: As I mentioned above, we will continue his current regimen, PT and OT was added. Continue aspirin and statin. Neurology consultation is still pending today. MRI of the brain to be done and continue the feeding through the tube and we will stop IV fluids. Job ID: [id number]
--- NOTE | 2019-08-22 14:38 | MRI ---
MRI BRAIN WITHOUT CONTRAST: INDICATION: CVA. Left side weakness. COMPARISON: Comparison is made to the recent MRI of 08/18/2019. That exam revealed evidence of acute infarct inv olving the right cerebellum and portions of the right brainstem at the level of the doroteo. FINDINGS: There has been continued evolution of this right cerebellar infarct. There is now increasing gliosis in the right cerebellum on FLAIR sequence and there is increasing gliosis in the brainstem on the ri ght of midline at the level of the doroteo. There continues to be restricted diffusion in this region i ndicating a subacute infarct. No evidence of new infarct and there has been no other interval change. The chronic ischemic white m atter changes noted previously remain in the cerebral hemispheres and are stable. IMPRESSION: Continued evolution of a right cerebellar infarct with involvement of the brainstem to the right of m idline. Findings of the infarct would be in the superior cerebellar artery distribution. POS: OFF
--- NOTE | 2019-08-22 15:57 | PRG ---
DATE OF SERVICE: 08/22/2019 CHIEF COMPLAINT: Worsening of his stroke symptoms. HISTORY OF PRESENT ILLNESS: We were asked to see this patient again after Dr. Vang's consultation on 08/19/2019. The patient apparently has been worse since this last 2 days and the patient is unable to give much medical history. He is lying in bed, turned to the left side, but does not follow commands, and is able to cooperate. He is somewhat sleepy today and I reviewed Dr. 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 LABORATORY WORKUP: White count 11.1, hemoglobin 14, hematocrit 41.6, platelet count 206. Sodium 135, potassium 4.0, chloride 104, bicarb 24, BUN 10, creatinine 0.72, glucose 200. Blood glucose levels have been 167 to 211 in general. IMAGING STUDIES: His most recent CT of the head was from 08/21/2019 and he has a right cerebellar infarct on the CT and there was no change noted and this was done yesterday and there has been mild increased lucencies since prior exam indicating evolution. PHYSICAL EXAMINATION: VITAL SIGNS: Temperature 98.4, pulse 88, respiratory rate 20, O2 saturations 92 %, blood pressure 157/78. GENERAL APPEARANCE: The patient is rolled to the left side. He is sleepy, but wakes up and tries to help. HEENT: Pupils are 2 mm. NEUROLOGIC: Higher intellectual function, he mumbles. Does follow simple commands. He knows the year, tried to talk. Cranial nerves; pupils 2 mm bilaterally. Motor exam, he can hold the right arm up and he had weakness on the left side mainly, and compared to Dr. Vang exam on 08/19 during his initial consultation, the patient is better today as far as his level of alertness. IMPRESSION: The patient with right midbrain and right middle cerebellar peduncle stroke. He is apparently more sleepy on examination. He has left-sided weakness, and in general, feels sleepy. CT head shows evolution of his stroke. I will go ahead and request an MRI again to identify if there is any new acute event or if the stroke has since evolved. More likely, this is a stroke in evolution with involvement of right midbrain. He has left-sided weakness. We will follow up on the scan. Job ID: [id number] [facility]
--- NOTE | 2019-08-22 16:14 | EKG ---
Test Reason : Blood Pressure : / mmHG Vent. Rate : 083 BPM Atrial Rate : 083 BPM P-R Int : 132 ms QRS Dur : 118 ms QT Int : 424 ms P-R-T Axes : 000 126 062 degrees QTc Int : 498 ms Normal sinus rhythm Right bundle branch block Left posterior fascicular block Bifascicular block Abnormal ECG Confirmed by KAVYA NARVAEZ MD ([id number]), graphics editor JAJA GIRON ([id number]) on 08/22/2019 4:12:58 PM Referred By: Confirmed By:KAVYA NARVAEZ MD
[2019-08-22] MEDS: Atorvastatin Calcium 40 MG TAB PO SCH (22:44)
[2019-08-23] MEDS: Bisacodyl 5 MG TAB PO PRN (09:28)
[2019-08-23] MEDS: Carvedilol 3.125 MG TAB PO SCH ×2 (09:28→18:15)
[2019-08-23] MEDS: Aspirin 325 mg Enteric Coated Tablet PO SCH (09:28)
[2019-08-23] MEDS: Famotidine/PF 20 mg/2ml Vial SLOW IVP SCH (10:58)
[2019-08-23] MEDS: Nicotine 14 MG PATCH TOP SCH (10:58)
[2019-08-23] MEDS: HumaLOG 300 UNITS/3 ML VIAL SC PRN ×2 (13:32→18:33)
[2019-08-23] MEDS: Metoclopramide HCl 10 MG/2 ML VIAL IVP SCH ×2 (15:12→23:12)
--- NOTE | 2019-08-23 16:03 | PRG ---
DATE OF SERVICE: 08/23/2019 SUBJECTIVE: The patient is seen and examined at the bedside, two daughters are present at bedside. They have multiple questions and all those questions answered to their satisfaction. Apparently, the patient vomited this morning again. He had 170 mL of residuals on his tube feeding at the time of vomiting. OBJECTIVE: VITAL SIGNS: Blood pressure is 132/80, pulse is 97, temperature 97.9, respiratory rate is 20, and O2 saturation is 90% on room air. GENERAL: He is quite drowsy, but arousable. He tries to follow my commands. HEENT: His pupils are responding to light. Sclerae are nonicteric. He tries to follow my commands. Oral mucosa is somewhat dry. LUNGS: Clear. HEART: S1 and S2 normal. No S3. No S4. ABDOMEN: Soft and nontender. PEG tube is in place. EXTREMITIES: No clubbing, cyanosis, or edema. NEUROLOGIC: He is quite drowsy, but arousable. He tries to follow my commands. He has some weakness in the left upper extremity 3/5 and left lower extremity is 4/5. LABORATORY DATA: Glycemia is ranging from 180 to 203. IMPRESSION: 1. 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 The patient is on aspirin 325 mg and statin. 2. Pulmonary nodule for the followup with PET scan in three months on outpatient basis. 3. Skin growth, which is most likely cancerous, again for outpatient basis biopsy by installer molding and trim or primary doctor. 4. Hypertension. 5. Congestive heart failure, compensated. 6. Thyroid nodule. Again, thyroid ultrasounds to be done on outpatient basis. 7. Oropharyngeal dysphagia secondary to cerebrovascular accident status post percutaneous endoscopic gastrostomy tube placement. The patient's rate is up to 650 mL/h. We are going to start him on Reglan 10 mg IV push every 8 hours. 8. Nicotine dependence. PLAN: He is still drowsy. He is not ready to be transferred to the rehab, although he is approved, he would not benefit from the stay there because of the amount of drowsiness he presents with today. We are going to continue PT and OT while in the hospital. We are going to continue his current regimen. MRI of the brain was done and it showed evolution of the right cerebellar infarct with involvement of the brainstem to the right of midline. Findings of the infarcts are in the superior cerebellar artery distribution. The update was given to the family. They understand the severity of the current situation. We are going to keep him over the weekend in the hospital and most likely, he will start improving and when we see that, he can be transferred to the rehab. Job ID: [id number]
[2019-08-23] MEDS: Atorvastatin Calcium 40 MG TAB PO SCH (23:12)
[2019-08-24] MEDS: Metoclopramide HCl 10 MG/2 ML VIAL IVP SCH ×4 (02:03→22:54)
[2019-08-24] MEDS: HumaLOG 300 UNITS/3 ML VIAL SC PRN ×4 (02:31→23:41)
[2019-08-24 08:08] LABS: #Basophils 0.1 thou/uL (0.0-0.2); #Eosinphils 0.5 thou/uL (0.0-0.7); #Lymphocytes 2.2 thou/uL (1.20-3.40); #Monocytes 1.1 thou/uL (0.11-0.59); #Neutrophils 6.7 thou/uL (1.40-6.50); %Basophils 0.8 % (0.0-1.0); %Eosinophils 4.3 % (0.0-10.0); %Lymphocytes 21.1 % (21.0-51.0); %Monocytes 10.4 % (0.0-10.0); %Neutrophils 63.4 % (42.0-75.0); Hemoglobin 14.5 g/dL (14.0-18.0); Mean Corpuscular HGB CONC 33.9 g/dL (32.0-36.0); Mean Corpuscular Hemoglobin 30.5 pg (27.0-31.0); Mean Corpuscular Volume 89.9 fL (78.0-98.0); Mean Platelet Volume 9.5 fL (7.4-10.4); Platelet Count 194 thou/uL (130-400); RBC Distribution Width 12.4 % (11.5-14.5); Red Blood Cell (RBC) Count 4.76 mill/uL (4.70-6.10); White Blood Cell (WBC) Count 10.6 thou/uL (4.8-10.8)
[2019-08-24 08:24] LABS: Anion Gap 13 mmol/L (10-20); BUN (Urea Nitrogen) 13 mg/dL (8.4-25.7); Calc. Creatinine Clearance 95 mL/min (70-130); Calcium 8.9 mg/dL (7.8-10.44); Carbon Dioxide 23 mmol/L (23-31); Chloride 101 mmol/L (98-107); Estimated GFR-MDRD Greater than 90; Glucose 249 mg/dL (83-110); Potassium 3.9 mmol/L (3.5-5.1); Sodium 133 mmol/L (136-145)
[2019-08-24] MEDS: Carvedilol 3.125 MG TAB PO SCH ×2 (09:25→18:05)
[2019-08-24] MEDS: Famotidine/PF 20 mg/2ml Vial SLOW IVP SCH (09:25)
[2019-08-24] MEDS: Nicotine 14 MG PATCH TOP SCH (09:26)
[2019-08-24] MEDS: Aspirin 325 mg Enteric Coated Tablet PO SCH (09:26)
[2019-08-24] MEDS: Bisacodyl 5 MG TAB PO PRN (09:26)
[2019-08-24] MEDS ORDERED: Glimepiride 4 MG TAB PO SCH (11:45)
--- NOTE | 2019-08-24 11:51 | PRG ---
DATE OF SERVICE: 08/24/2019 SUBJECTIVE: The patient is seen and examined at the bedside. He sleeps most of the time, but he is arousable and he seems to be getting more stable gradually. He did not vomit since yesterday. His feeding rate is up to 65 and his residuals are around 10 mL, which is not significant. The family member, his daughter is present in the room during my visit. OBJECTIVE: VITAL SIGNS: Blood pressure is 124/61, pulse is 93, temperature is 98.5, respiratory rate is 20, and O2 saturation is 98% on 2 L by nasal cannula. HEENT: His pupils are quite small. Sclerae are nonicteric. Oral mucosa is on a clinical informatics director side. LUNGS: Clear. HEART: S1 and S2. Somewhat irregular. No S3. No S4. ABDOMEN: Soft, nontender, and nondistended. The PEG tube is in place. EXTREMITIES: No clubbing, cyanosis, or edema. NEUROLOGIC: He follows my commands. He does not talk to me. He has significant weakness on the left side upper and lower extremity, this fluctuates from time to time, it gets better, but this morning is complete. LABORATORY DATA: Hemoglobin 14.5, white count 10.6, hematocrit 42.8, and platelet count 194,000. Sodium of 133, potassium 3.9, chloride 101, CO2 of 23, BUN 13, creatinine 0.75, and glycemia is ranging from 204 to 213. IMPRESSION: 1. 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 The patient is on statin and aspirin, we will continue both. 2. Pulmonary nodule for the followup with PET scan in three months by Dr. Roa on outpatient basis. 3. Skin growth, which looks like skin cancer, again for biopsy by PCP or summer internship on outpatient basis when he is out of the rehab. 4. Hypertension. 5. Congestive heart failure, compensated. 6. Thyroid nodule. Again for thyroid ultrasound to be done on outpatient basis. 7. Oropharyngeal dysphagia secondary to cerebrovascular accident, status post percutaneous endoscopic gastrostomy tube placement. He tolerates his feeding at 65. He is started on Reglan 10 mg IV push every 8 hours. We will continue that. 8. Nicotine dependence. DISCUSSION: The patient is getting more stable now. He did not vomit. He does not have much residuals yesterday. He had 176 mL of residual on his feeding, today is just 10 mL. We will continue his Reglan. We will continue his PT and OT. His IV fluids were stopped. He will continue on statin and aspirin. He had some PAT 11 beats on the monitoring and he has some bifascicular block, but he is on Coreg and will continue that most likely when his stroke is under better control. He will stop having runs of PATs. Job ID: [id number]
[2019-08-24] MEDS ORDERED: Tamsulosin HCl 0.4 MG CAP PO SCH (18:30)
[2019-08-24] MEDS: Atorvastatin Calcium 40 MG TAB PO SCH (22:54)
[2019-08-25] MEDS: Acetaminophen 650 MG/20.3 ML UDCUP PO PRN (00:13)
[2019-08-25] MEDS: Metoclopramide HCl 10 MG/2 ML VIAL IVP SCH ×3 (05:17→20:52)
[2019-08-25] MEDS: HumaLOG 300 UNITS/3 ML VIAL SC PRN ×2 (08:45→13:38)
[2019-08-25] MEDS: Bisacodyl 5 MG TAB PO PRN (09:32)
[2019-08-25] MEDS: Nicotine 14 MG PATCH TOP SCH (09:32)
[2019-08-25] MEDS: Tamsulosin HCl 0.4 MG CAP PO SCH (09:32)
[2019-08-25] MEDS: Aspirin 325 mg Enteric Coated Tablet PO SCH (09:33)
[2019-08-25] MEDS: Glimepiride 4 MG TAB PO SCH (09:33)
[2019-08-25] MEDS: Carvedilol 3.125 MG TAB PO SCH ×2 (09:33→16:55)
[2019-08-25] MEDS: Famotidine/PF 20 mg/2ml Vial SLOW IVP SCH (09:33)
--- NOTE | 2019-08-25 10:24 | PQF ---
EMILIA SMITH SR GENESIS HODGE [id number] [facility]-[id number] CLINICAL DOCUMENTATION IMPROVEMENT CLARIFICATION FORM: ICD-10 Updated PLEASE DO AN ADDENDUM TO THE PROGRESS NOTE WITH ANY DOCUMENTATION UPDATES OR ADDITIONS AND CARRY THROUGH TO DC SUMMARY. THANK YOU. Date: 08/25/2019 ATTN: DR. Sara HODGE Please exercise your independent, professional judgment in responding to the clarification form. Clinical indicators are provided on the bottom of this form for your review. Please check appropriate box(s): [ ] Protein Calorie Malnutrition: [ ] Mild [ ] Moderate [ ] Severe [ ] Other Malnutrition (please specify) __ [ ] Underweight without malnutrition [ ] Cachexia [ ] Other diagnosis [ ] Unable to determine In addition, please specify: Present on Admission (POA): [ ] Yes [ ] No [ ] Unable to determine CLINICAL INDICATORS - SIGNS / SYMPTOMS / LABS / RESULTS AND LOCATION IN MR 08/18 H&P (FICKLEN) THE PATIENT HAS LOST ABOUT 40 PONDS, VERY POOR APPETITE, VERY POOR P.O. INTAKE. 08/19 ASSESSMENT: NUTRITION DIAGNOSIS MALNUTRITION EVIDENCED BY -24.1% WEIGHT LOSS IN UNSURE TIME FRAME, MILD MUSCLE WASTING OF CLAVICLE, TEMPORAL, SHOULDER, PATELLAR REGION, MILD FAT WASTING IN THIGHS SUGGESTIVE OF MALNUTRITION IN THE CONTEXT OF CHRONIC ILLNESS. 08/19 CONSULT(KEMAR) THERE HAS BEEN SOME WEIGHT LOSS OF 40 POUNDS OVER THE LAST FEW MONTHS. THE FAMILY HAS KIND OF ATTRIBUTED THIS TO POOR APPETITE. 08/20 MODIFIED BARIUM SWALLOW IMPRESSION: ASPIRATION WAS SEEN WITH THIN LIQUIDS , NECTAR LIQUIDS, AND HONEY THICK LIQUIDS. 08/22 PN (KEATON) OROPHARYNGEAL DYSPHAGIA RISK: SEVERE DEHYDRATION, CVA RT CEREBELLAR (RD/08/19) ASPIRATION DURING SPEECH EVAL, OROPHARYNGEAL DYSPHAGIA ( KEATON/PN ) 08/20 TREATMENTS: DIETARY CONSULT 08/19 RD RECOMMENDS ENSURE ENLIVE 07/26 SPEECH MODIFIED BARIUM SWALLOW 08/20 GI CONSULT (AUGIE/08/20) PEG TUBE PLACEMENT( 08/20) Moderate Malnutrition (in acute illness) Energy Intake: <75% of estimated energy requirement for > 7 days Weight Loss: 1-2%/1 week; 5%/ 1 month; 7.5%/3 months Other: mild body fat loss; mild muscle mass loss; mild fluid accumulation; Severe Malnutrition (in acute illness) Energy Intake: < 50% of estimated energy requirement for > 5 days Weight Loss: >1-2%/1 week; >5%/1 month; >7.5%/3 months Other: moderate body fat loss; moderate muscle mass loss; moderate- severe fluid accumulation; measurably reduced florist's decorator strength Moderate Malnutrition (in chronic illness) Energy Intake: <75% of estimated energy requirement for >1 month Weight Loss: 5%/1 month; 7.5%/3 months; 10%/6 months; 20%/1 year Other: mild body fat loss; mild muscle mass loss; mild fluid accumulation Severe Malnutrition (in chronic illness) Energy Intake: <75% of estimated energy requirement for >1 month Weight Loss: >5%/1 month; >7.5%/3 months; >10%/6 months; >20%/1 year Other: severe body fat loss; severe muscle mass loss; severe fluid accumulation ; measurably reduced florist's decorator strength THANK YOU! MAXIME (This form is maintained as a part of the permanent medical record) 2014 [employer] All Rights Reserved [email or web address] [phone] MTDD
[2019-08-25] MEDS ORDERED: Magnesium Citrate 300 ML BOT PER TUBE SCH (12:15)
--- NOTE | 2019-08-25 17:54 | PDOC.HOSPP ---
- Subjective Encounter Date: 08/25/19 Encounter Time: 07:20 Subjective: Pt seen for followup re: ischemic CVA. Sleepy but arousable, not speaking, could not complete ROS. - Objective Vital Signs & Weight: Vital Signs (12 hours) Temp Pulse Resp BP Pulse Ox 08/25/19 15:31 98.1 F 100 16 141/72 H 95 08/25/19 11:58 97.8 F 100 18 132/79 92 L 08/25/19 11:22 101 H 24 H 92 L 08/25/19 09:25 92 L 08/25/19 08:25 96 20 92 L 08/25/19 07:54 98.5 F 94 18 133/67 92 L Weight Admit Weight 173 lb 6.4 oz Weight 173 lb 6.4 oz I&O: 08/24/19 08/25/19 08/26/19 06:59 06:59 06:59 Intake Total 1220 900 200 Output Total 1800 350 Balance 1220 -900 -150 Result Diagrams: 08/24/19 07:46 08/24/19 07:46 Additional Labs: Accuchecks 08/25/19 08/25/19 08/25/19 13:17 05:56 01:05 POC Glucose 237 H 208 H 210 H 08/24/19 08/24/19 23:42 18:15 POC Glucose 188 H 125 H Labs and MARs reviewed by me EKG Reviewed by me: Yes (Tele: A-paced) Hospitalist ROS - Review of Systems ROS unobtainable: due to mental status - Medication Medications: Active Medications Generic Name Dose Route Start Last Admin Trade Name Georgiana PRN Reason Stop Dose Admin Acetaminophen 650 mg 08/20/19 20:10 08/25/19 00:13 Tylenol Elixir PO 650 mg Q4H PRN Administration Headache, Aches or Pain Albuterol/Ipratropium 3 ml 08/21/19 02:30 08/25/19 14:49 Duoneb NEB Not Given [id number] MIHIR Aspirin 325 mg 08/19/19 09:00 08/25/19 09:33 Ecotrin PO 325 mg DAILY MIHIR Administration Atorvastatin Calcium 40 mg 08/18/19 21:00 08/24/19 22:54 Lipitor PO 40 mg HS MIHIR Administration Bisacodyl 5 mg 08/23/19 08:57 08/25/19 09:32 Dulcolax PO 5 mg DAILYPRN PRN Administration Constipation Carvedilol 3.125 mg 08/20/19 17:00 08/25/19 16:55 Coreg PO 3.125 mg BID-WM MIHIR Administration Glimepiride 4 mg 08/25/19 08:00 08/25/19 09:33 Amaryl PO 4 mg QAM-WM MIHIR Administration Insulin Human Lispro 0 units 08/20/19 09:34 08/25/19 13:38 Humalog SC 3 unit .MILD SLIDING SCALE PRN Administration Mild Correctional Scale Magnesium Citrate 300 ml 08/25/19 12:15 08/25/19 13:39 Citrate Of Magnesia 300 Ml Bot PER TUBE 08/25/19 21:00 300 ml NOW MIHIR Administration Metoclopramide HCl 10 mg 08/23/19 14:00 08/25/19 13:39 Reglan IVP 10 mg Q8HR MIHIR Administration Nicotine 14 mg 08/21/19 09:00 08/25/19 09:32 Nicoderm Patch TOP 14 mg Q24HR MIHIR Administration Ondansetron HCl 4 mg 08/18/19 18:57 08/21/19 03:48 Zofran IVP 4 mg Q6H PRN Administration Nausea/Vomiting Sodium Chloride 10 ml 08/18/19 15:44 08/25/19 05:18 Flush - Normal Saline IVF 10 ml PRN PRN Administration Saline Flush Tamsulosin HCl 0.4 mg 08/25/19 09:00 08/25/19 09:32 Flomax PO 0.4 mg DAILY MIHIR Administration - Exam General Appearance: NAD Eye: anicteric sclera ENT: moist mucosa Neck: supple, no JVD Heart: RRR Respiratory: CTAB Gastrointestinal: soft, non-tender Gastrointestinal - other findings: PEG tube Neurological - other findings: L hemiplegia Psychiatric - other findings: Unable to assess Hosp A/P (1) Cerebellar infarction Code(s): I63.9 - CEREBRAL INFARCTION, UNSPECIFIED Status: Acute (2) Oropharyngeal dysphagia Code(s): R13.12 - DYSPHAGIA, OROPHARYNGEAL PHASE Status: Acute (3) Pulmonary nodule Code(s): R91.1 - SOLITARY PULMONARY NODULE Status: Acute (4) Thyroid nodule Code(s): E04.1 - NONTOXIC SINGLE THYROID NODULE Status: Acute (5) Moderate protein-calorie malnutrition Code(s): E44.0 - MODERATE PROTEIN-CALORIE MALNUTRITION Status: Chronic Plan: Present on admission - Plan PT/OT Continue aspirin, statin. Pt is on tube feeds. Constipated, laxatives as needed. Dispo: Inpt Rehab.
[2019-08-25] MEDS ORDERED: Fleet Enema 133 ML BOT PR SCH (18:15)
[2019-08-25] MEDS: Atorvastatin Calcium 40 MG TAB PO SCH (20:52)
[2019-08-26] MEDS: Metoclopramide HCl 10 MG/2 ML VIAL IVP SCH ×3 (05:42→21:45)
[2019-08-26] MEDS: HumaLOG 300 UNITS/3 ML VIAL SC PRN ×3 (05:44→19:26)
[2019-08-26] MEDS: Glimepiride 4 MG TAB PO SCH (10:01)
[2019-08-26] MEDS: Aspirin 325 mg Enteric Coated Tablet PO SCH (10:01)
[2019-08-26] MEDS: Tamsulosin HCl 0.4 MG CAP PO SCH (10:01)
[2019-08-26] MEDS: Famotidine 20 MG TAB PO SCH (10:01)
[2019-08-26] MEDS: Nicotine 14 MG PATCH TOP SCH (10:02)
[2019-08-26] MEDS: Carvedilol 3.125 MG TAB PO SCH ×2 (10:02→16:53)
[2019-08-26 10:41] LABS: Anion Gap 13 mmol/L (10-20); BUN (Urea Nitrogen) 13 mg/dL (8.4-25.7); Calc. Creatinine Clearance 89 mL/min (70-130); Calcium 9.8 mg/dL (7.8-10.44); Carbon Dioxide 27 mmol/L (23-31); Chloride 102 mmol/L (98-107); Estimated GFR-MDRD Greater than 90; Glucose 217 mg/dL (83-110); Potassium 4.7 mmol/L (3.5-5.1); Sodium 137 mmol/L (136-145)
[2019-08-26 10:46] LABS: Hemoglobin 15.4 g/dL (14.0-18.0); Mean Corpuscular HGB CONC 32.2 g/dL (32.0-36.0); Mean Corpuscular Hemoglobin 28.6 pg (27.0-31.0); Mean Corpuscular Volume 88.9 fL (78.0-98.0); Mean Platelet Volume 11.1 fL (7.4-10.4); Platelet Count 224 thou/uL (130-400); RBC Distribution Width 12.7 % (11.5-14.5); Red Blood Cell (RBC) Count 5.39 mill/uL (4.70-6.10); White Blood Cell (WBC) Count 16.7 thou/uL (4.8-10.8)
[2019-08-26 10:47] LABS: #Basophils 0.1 thou/uL (0.0-0.2); #Eosinphils 0.3 thou/uL (0.0-0.7); #Lymphocytes 2.7 thou/uL (1.20-3.40); #Monocytes 1.6 thou/uL (0.11-0.59); #Neutrophils 11.9 thou/uL (1.40-6.50); %Basophils 0.7 % (0.0-1.0); %Eosinophils 1.8 % (0.0-10.0); %Lymphocytes 16.3 % (21.0-51.0); %Monocytes 9.8 % (0.0-10.0); %Neutrophils 71.3 % (42.0-75.0)
--- NOTE | 2019-08-26 12:01 | RAD ---
EXAM: Single view of the abdomen HISTORY: Abdominal distention COMPARISON: None FINDINGS: Single view of the abdomen shows a nonspecific, nonobstructive bowel gas pattern. No suspi cious calcifications are seen. Degenerative changes are seen in the spine. The patient appears to have a gastrostomy tube overlying the left upper quadrant of the abdomen. IMPRESSION: Unremarkable exam
--- NOTE | 2019-08-26 18:34 | PDOC.HOSPP ---
- Subjective Encounter Date: 08/26/19 Encounter Time: 13:20 Subjective: Pt seen for followup re: ischemic CVA. More alert today, denies any complaints. - Objective Vital Signs & Weight: Vital Signs (12 hours) Temp Pulse Pulse Pulse Resp BP BP 08/26/19 18:08 94 20 08/26/19 15:53 97.2 F L 100 20 08/26/19 15:14 106 H 22 H 08/26/19 14:55 106 H 95 132/94 H 129/76 08/26/19 12:00 98.7 F 107 H 18 08/26/19 08:10 08/26/19 08:00 98.0 F 107 H 20 BP Pulse Ox 08/26/19 18:08 93 L 08/26/19 15:53 132/94 H 93 L 08/26/19 15:14 92 L 08/26/19 14:55 08/26/19 12:00 140/90 92 L 08/26/19 08:10 92 L 08/26/19 08:00 128/77 92 L Weight Admit Weight 173 lb 6.4 oz Weight 173 lb 6.4 oz I&O: 08/25/19 08/26/19 08/27/19 06:59 06:59 06:59 Intake Total 900 1564 120 Output Total 1800 1350 775 Balance -900 377 -198 Result Diagrams: 08/26/19 09:48 08/26/19 09:48 Additional Labs: Accuchecks 08/26/19 08/26/19 08/26/19 18:04 12:52 05:47 POC Glucose 186 H 181 H 184 H 08/26/19 00:46 POC Glucose 175 H Labs and MARs reviewed by az Hospitalist ROS - Review of Systems Cardiovascular: denies: chest pain, palpitations, orthopnea, paroxysmal noc. dyspnea, edema, light headedness Gastrointestinal: denies: nausea, vomiting, abdominal pain, diarrhea, constipation, melena, hematochezia - Medication Medications: Active Medications Generic Name Dose Route Start Last Admin Trade Name Freq PRN Reason Stop Dose Admin Acetaminophen 650 mg 08/20/19 20:10 08/25/19 00:13 Tylenol Elixir PO 650 mg Q4H PRN Administration Headache, Aches or Pain Albuterol/Ipratropium 3 ml 08/21/19 02:30 08/26/19 18:08 Duoneb NEB 3 ml [id number] MIHIR Administration Aspirin 325 mg 08/19/19 09:00 08/26/19 10:01 Ecotrin PO 325 mg DAILY MIHIR Administration Atorvastatin Calcium 40 mg 08/18/19 21:00 08/25/19 20:52 Lipitor PO 40 mg HS MIHIR Administration Bisacodyl 5 mg 08/23/19 08:57 08/25/19 09:32 Dulcolax PO 5 mg DAILYPRN PRN Administration Constipation Carvedilol 3.125 mg 08/20/19 17:00 08/26/19 16:53 Coreg PO 3.125 mg BID-WM MIHIR Administration Famotidine 20 mg 08/26/19 09:00 08/26/19 10:01 Pepcid PO 20 mg DAILY MIHIR Administration Glimepiride 4 mg 08/25/19 08:00 08/26/19 10:01 Amaryl PO 4 mg QAM-WM MIHIR Administration Insulin Human Lispro 0 units 08/20/19 09:34 08/26/19 13:18 Humalog SC 2 unit .MILD SLIDING SCALE PRN Administration Mild Correctional Scale Metoclopramide HCl 10 mg 08/23/19 14:00 08/26/19 13:17 Reglan IVP 10 mg Q8HR MIHIR Administration Nicotine 14 mg 08/21/19 09:00 08/26/19 10:02 Nicoderm Patch TOP 14 mg Q24HR MIHIR Administration Ondansetron HCl 4 mg 08/18/19 18:57 08/21/19 03:48 Zofran IVP 4 mg Q6H PRN Administration Nausea/Vomiting Sodium Chloride 10 ml 08/18/19 15:44 08/25/19 05:18 Flush - Normal Saline IVF 10 ml PRN PRN Administration Saline Flush Tamsulosin HCl 0.4 mg 08/25/19 09:00 08/26/19 10:01 Flomax PO 0.4 mg DAILY MIHIR Administration - Exam General Appearance: NAD Eye: anicteric sclera ENT: no oropharyngeal lesions Neck: supple, no JVD Heart: RRR, no gallops Respiratory: CTAB Gastrointestinal: soft, non-tender Neurological - other findings: L hemiplegia Psychiatric: normal affect, normal behavior Hosp A/P (1) Cerebellar infarction Code(s): I63.9 - CEREBRAL INFARCTION, UNSPECIFIED Status: Acute (2) Oropharyngeal dysphagia Code(s): R13.12 - DYSPHAGIA, OROPHARYNGEAL PHASE Status: Acute (3) Pulmonary nodule Code(s): R91.1 - SOLITARY PULMONARY NODULE Status: Acute (4) Thyroid nodule Code(s): E04.1 - NONTOXIC SINGLE THYROID NODULE Status: Acute (5) Moderate protein-calorie malnutrition Code(s): E44.0 - MODERATE PROTEIN-CALORIE MALNUTRITION Status: Chronic - Plan plan discussed w/ family Continue aspirin, statin. Resume tube feeds. Dispo: Inpt Rehab.
[2019-08-26] MEDS: Atorvastatin Calcium 40 MG TAB PO SCH (21:45)
[2019-08-27] MEDS: Acetaminophen 650 MG/20.3 ML UDCUP PO PRN (00:18)
--- NOTE | 2019-08-27 01:55 | PDOC.EVN ---
Event Note - Event Note Event Note: patient with fever, tachycardia, new elevated WBC count today. Will get stat CBC , Comp met, lactic acid, UA, UAClt, CXR and start Zosyn.
[2019-08-27 02:11] LABS: Hemoglobin 15.5 g/dL (14.0-18.0); Mean Corpuscular HGB CONC 33.7 g/dL (32.0-36.0); Mean Corpuscular Hemoglobin 29.9 pg (27.0-31.0); Mean Corpuscular Volume 88.6 fL (78.0-98.0); Mean Platelet Volume 9.2 fL (7.4-10.4); Platelet Count 262 thou/uL (130-400); RBC Distribution Width 12.6 % (11.5-14.5); Red Blood Cell (RBC) Count 5.18 mill/uL (4.70-6.10); White Blood Cell (WBC) Count 20.1 thou/uL (4.8-10.8)
[2019-08-27 02:30] LABS: ALT (SGPT) 22 U/L (8-55); AST (SGOT) 28 U/L (5-34); Albumin 3.8 g/dL (3.4-4.8); Alkaline Phosphatase 158 U/L (40-110); Anion Gap 11 mmol/L (10-20); BUN (Urea Nitrogen) 18 mg/dL (8.4-25.7); Calc. Creatinine Clearance 85 mL/min (70-130); Calcium 9.5 mg/dL (7.8-10.44); Carbon Dioxide 28 mmol/L (23-31); Chloride 102 mmol/L (98-107); Estimated GFR-MDRD 89; Globulin 3.4 g/dL (2.4-3.5); Glucose 244 mg/dL (83-110); Potassium 4.6 mmol/L (3.5-5.1); Protein, Total 7.2 g/dL (5.8-8.1); Sodium 136 mmol/L (136-145)
[2019-08-27] MEDS ORDERED: Metoclopramide HCl 10 MG/2 ML VIAL ONE (06:50)
[2019-08-27 11:29] LABS: Band 6 % (5-11); Lymphocytes 9 % (21-51); MDiff Complete? YES; Monocytes 3 % (0-10); Neutrophil 82 % (42-75); Platelet Morphology Comment Appears Adequate
--- NOTE | 2019-08-27 11:39 | RAD ---
Chest one view HISTORY: Cough and fever. COMPARISON: 08/18/2019. FINDINGS: Cardiac silhouette is magnified by projection. Lungs remain hyperinflated. Patchy infiltrat e at the right lung base has become more pronounced. Mediastinum is midline. Nodular densities projecting over each upper lobe are similar in appearance t o the previous study. No evidence of pneumothorax. IMPRESSION: Developing right lower lobe infiltrate may be the source of fever. Bilateral upper lobe nodules have been better characterized on recent CT exam.
[2019-08-27] MEDS ORDERED: Propofol 1,000 MG/100 ML VIAL IV ONE (13:13)
[2019-08-27 14:00] LABS: Lactic Acid 2.5 mmol/L (0.5-2.2)
[2019-08-27] MEDS: Piperacillin/Tazobactam 3.375 GM in Sodium Chloride 0.9% 100 ML IVPB SCH ×3 (14:14→19:44)
[2019-08-27] MEDS: Carvedilol 3.125 MG TAB PO SCH ×3 (14:15→19:45)
[2019-08-27] MEDS: Metoclopramide HCl 10 MG/2 ML VIAL IVP SCH ×3 (14:15→20:13)
[2019-08-27] MEDS: Glimepiride 4 MG TAB PO SCH (14:15)
--- NOTE | 2019-08-27 14:15 | PDOC.HOSPP ---
- Subjective Encounter Date: 08/27/19 Encounter Time: 14:14 Subjective: Pt seen for followup re; aspiration pneumonia. Lethargic, not responding to touch. Tachypneic. - Objective Vital Signs & Weight: Vital Signs (12 hours) Pulse Resp BP Pulse Ox 08/27/19 14:12 100 24 H 92 L 08/27/19 13:42 100 98/70 08/27/19 02:25 93 L Weight Admit Weight 173 lb 6.4 oz Weight 173 lb 6.4 oz I&O: 08/26/19 08/27/19 08/28/19 06:59 06:59 06:59 Intake Total 1564 120 60 Output Total 1350 775 Balance 214 -655 60 Result Diagrams: 08/27/19 01:57 08/27/19 01:57 Additional Labs: Accuchecks 08/27/19 08/27/19 08/27/19 12:38 06:16 00:48 POC Glucose 242 H 190 H 194 H 08/26/19 18:04 POC Glucose 186 H Labs and MARs reviewed by me EKG Reviewed by me: Yes (Tele; sinus tachycardia) Hospitalist ROS - Review of Systems ROS unobtainable: due to mental status - Medication Medications: Active Medications Generic Name Dose Route Start Last Admin Trade Name Freq PRN Reason Stop Dose Admin Acetaminophen 650 mg 08/20/19 20:10 08/27/19 00:18 Tylenol Elixir PO 650 mg Q4H PRN Administration Headache, Aches or Pain Albuterol/Ipratropium 3 ml 08/21/19 02:30 08/27/19 14:12 Duoneb NEB 3 ml [id number] MIHIR Administration Aspirin 325 mg 08/19/19 09:00 08/26/19 10:01 Ecotrin PO 325 mg DAILY MIHIR Administration Atorvastatin Calcium 40 mg 08/18/19 21:00 08/26/19 21:45 Lipitor PO 40 mg HS MIHIR Administration Bisacodyl 5 mg 08/23/19 08:57 08/25/19 09:32 Dulcolax PO 5 mg DAILYPRN PRN Administration Constipation Carvedilol 3.125 mg 08/20/19 17:00 08/26/19 16:53 Coreg PO 3.125 mg BID-WM MIHIR Administration Famotidine 20 mg 08/26/19 09:00 08/26/19 10:01 Pepcid PO 20 mg DAILY MIHIR Administration Glimepiride 4 mg 08/25/19 08:00 08/26/19 10:01 Amaryl PO 4 mg QAM-WM MIHIR Administration Insulin Human Lispro 0 units 08/20/19 09:34 08/26/19 19:26 Humalog SC 2 unit .MILD SLIDING SCALE PRN Administration Mild Correctional Scale Metoclopramide HCl 10 mg 08/23/19 14:00 08/26/19 21:45 Reglan IVP 10 mg Q8HR MIHIR Administration Nicotine 14 mg 08/21/19 09:00 08/26/19 10:02 Nicoderm Patch TOP 14 mg Q24HR MIHIR Administration Ondansetron HCl 4 mg 08/18/19 18:57 08/21/19 03:48 Zofran IVP 4 mg Q6H PRN Administration Nausea/Vomiting Sodium Chloride 10 ml 08/18/19 15:44 08/25/19 05:18 Flush - Normal Saline IVF 10 ml PRN PRN Administration Saline Flush Tamsulosin HCl 0.4 mg 08/25/19 09:00 08/26/19 10:01 Flomax PO 0.4 mg DAILY MIHIR Administration - Exam General Appearance: ill appearing Eye: anicteric sclera ENT: normocephalic atraumatic Neck: no thyromegaly, no lymphadenopathy Heart - other findings: S1, S2, tachy, reg Respiratory - other findings: R basal crackles Gastrointestinal: soft, non-tender Gastrointestinal - other findings: PEG tube Extremities: no clubbing Psychiatric: lethargic Hosp A/P (1) Aspiration pneumonia Code(s): J69.0 - PNEUMONITIS DUE TO INHALATION OF FOOD AND VOMIT Status: Acute (2) Cerebellar infarction Code(s): I63.9 - CEREBRAL INFARCTION, UNSPECIFIED Status: Acute (3) Oropharyngeal dysphagia Code(s): R13.12 - DYSPHAGIA, OROPHARYNGEAL PHASE Status: Acute (4) Pulmonary nodule Code(s): R91.1 - SOLITARY PULMONARY NODULE Status: Acute (5) Thyroid nodule Code(s): E04.1 - NONTOXIC SINGLE THYROID NODULE Status: Acute (6) Moderate protein-calorie malnutrition Code(s): E44.0 - MODERATE PROTEIN-CALORIE MALNUTRITION Status: Chronic - Plan plan discussed w/ family, continue antibiotics, PT/OT Pt has been started on Zosyn for aspiration pneumonia. Pt declined since yesterday in terms of respiratory status. Discussed with PCCM service, pt transferred to CCU for intubation and further management. Continue aspirin, statin.
[2019-08-27] MEDS: Nicotine 14 MG PATCH TOP SCH (14:16)
[2019-08-27] MEDS: Famotidine 20 MG TAB PO SCH (14:16)
[2019-08-27] MEDS: Aspirin 325 mg Enteric Coated Tablet PO SCH (14:16)
[2019-08-27] MEDS: Tamsulosin HCl 0.4 MG CAP PO SCH (14:16)
[2019-08-27 14:27] LABS: Actual Bicarbonate (HCO3a) 26.6 mEq/L (22-28); Base Excess (BEa) 1.6 mEq/L (-2.0 to +3.0); CO2 Tension 43.5 mmHg (35.0-45.0); Carboxyhemoglobin (COHb) 1.7 gm% (0.0-3.0); Hemoglobin (Hb) 15.3 g/dL (14.0-18.0); O2 Tension (PaO2) 75.4 mmHg (> 70.0); Potassium - ABG Lab 4.44 mmol/L (3.70-5.30); pH, Arterial 7.41 (7.35-7.45)
[2019-08-27 14:36] LABS: ALV-art Gradient 155.425 (0-20); Puncture Site LR
[2019-08-27] MEDS ORDERED: DISCONTINUE PREVIOUS NARCOTIC PAIN MEDICATIONS AND BENZODIAZEPINES FS SCH (15:14)
[2019-08-27] MEDS ORDERED: Morphine 2 MG/ML SYRINGE SLOW IVP PRN (15:14)
[2019-08-27] MEDS ORDERED: Propofol BOLUS 1,000 MG/100 ML VIAL IV PRN (15:14)
[2019-08-27] MEDS ORDERED: Fentanyl BOLUS 250 ML IVPB PRN (15:14)
[2019-08-27] MEDS ORDERED: fentaNYL Citrate/PF 2,000 MCG in Sodium Chloride 0.9% 60 ML IV SCH (15:14)
[2019-08-27] MEDS ORDERED: Lorazepam 2 MG/ML VIAL SLOW IVP PRN (15:14)
[2019-08-27 17:47] LABS: Bilirubin Negative (Negative); Blood, Urine Large (Negative); Clarity Cloudy (Clear); Glucose, Urine (Dipstick) Negative (Negative); Leukocyte Small (Negative); Nitrite Negative (Negative); Protein, Urine (Dipstick) Trace mg/dL (Neg-Trace)
[2019-08-27 17:48] LABS: Bacteria/HPF 3+ HPF (None Seen); Squamous Epithelial None Seen HPF (0-3)
[2019-08-27 19:10] LABS: White Blood Cell (WBC) Count 21.1 thou/uL (4.8-10.8)
[2019-08-27 19:11] LABS: Hemoglobin 15.6 g/dL (14.0-18.0); Mean Corpuscular HGB CONC 33.9 g/dL (32.0-36.0); Mean Corpuscular Volume 88.3 fL (78.0-98.0); Mean Platelet Volume 9.7 fL (7.4-10.4); Platelet Count 282 thou/uL (130-400); RBC Distribution Width 12.7 % (11.5-14.5)
[2019-08-27 19:12] LABS: Band 2 % (5-11); Lymphocytes 15 % (21-51); MDiff Complete? YES; Monocytes 6 % (0-10); Neutrophil 77 % (42-75)
[2019-08-27 19:30] LABS: Anion Gap 13 mmol/L (10-20); BUN (Urea Nitrogen) 18 mg/dL (8.4-25.7); Calc. Creatinine Clearance 84 mL/min (70-130); Calcium 9.6 mg/dL (7.8-10.44); Carbon Dioxide 27 mmol/L (23-31); Chloride 102 mmol/L (98-107); Estimated GFR-MDRD 88; Potassium 4.7 mmol/L (3.5-5.1); Sodium 137 mmol/L (136-145)
[2019-08-27 19:31] LABS: Glucose 210 mg/dL (83-110)
[2019-08-27] MEDS: Atorvastatin Calcium 40 MG TAB PO SCH ×2 (19:45→19:47)
[2019-08-27] MEDS: Propofol 1,000 MG/100 ML VIAL IV PRN (20:13)
[2019-08-27] MEDS: HumaLOG 300 UNITS/3 ML VIAL SC PRN (22:18)
[2019-08-28] MEDS: Piperacillin/Tazobactam 3.375 GM in Sodium Chloride 0.9% 100 ML IVPB SCH ×4 (00:54→20:14)
--- NOTE | 2019-08-28 01:41 | CON ---
DATE OF CONSULTATION: 08/27/2019 HISTORY OF PRESENT ILLNESS: Bart Carmona is a 74-year-old male. Apparently, he was recently admitted with a stroke. Reviewing the admission history and physical on 08/18, he presented with an inability to walk. He was found to have an acute cerebellar CVA. He is admitted to the hospital. It looks like our group was consulted for pulmonary nodule. Dr. Roa recommended PET imaging as an outpatient. Today, apparently developed declining mental status, distress, and had a very abnormal blood gas, so I was consulted. He has a PEG in place. PAST MEDICAL HISTORY: Remarkable for: 1. A long history of smoking. 2. History of lack of medical care. Last time he saw physician prior to this admission apparently was 11 years earlier. He lost his 11 years ago and that is the last time he saw doctor apparently for a sleep aid. 3. History of lesion on his chin. It has been present for over 10 years. 4. History of back surgery. FAMILY HISTORY: Remarkable for malignancies. SOCIAL HISTORY: He is a pack-a-day smoker, but had not smoked in 4 years. Dips snuff. PHYSICAL EXAMINATION: GENERAL: There is no family at the bedside. I saw him when he arrived in the Critical Care Unit. VITAL SIGNS: Upon arrival, he was not hypotensive. He was tachycardic mildly and tachypneic. HEENT: His pupils are equal. Sclerae are anicteric. He is completely unresponsive. LUNGS: Remarkable for coarse rhonchi. HEART: Regular rhythm. ABDOMEN: Soft. EXTREMITIES: Without asymmetry or edema. LABORATORY DATA: White count 20.1, hemoglobin 15.5. Electrolytes were normal. Chest x-ray today showed a right lower lobe alveolar infiltrate. He had a temperature of 100.4 last night. IMPRESSION: 1. Aspiration pneumonia. 2. Hypercarbia with a pCO2 of well over 100 and an inability to protect his airway, handle secretions, I recommend intubation, ventilatory support, and supportive care. His prognosis is quite poor. Critical care time is 35 minutes. Job ID: [id number] MTDD
[2019-08-28] MEDS: Propofol 1,000 MG/100 ML VIAL IV PRN (03:33)
[2019-08-28 04:48] LABS: #Basophils 0.1 thou/uL (0.0-0.2); #Eosinphils 0.4 thou/uL (0.0-0.7); #Lymphocytes 3.3 thou/uL (1.20-3.40); #Monocytes 1.6 thou/uL (0.11-0.59); #Neutrophils 13.7 thou/uL (1.40-6.50); %Basophils 0.7 % (0.0-1.0); %Eosinophils 2.1 % (0.0-10.0); %Lymphocytes 17.4 % (21.0-51.0); %Monocytes 8.1 % (0.0-10.0); %Neutrophils 71.7 % (42.0-75.0); Hemoglobin 14.5 g/dL (14.0-18.0); Mean Corpuscular HGB CONC 33.5 g/dL (32.0-36.0); Mean Corpuscular Volume 89.6 fL (78.0-98.0); Mean Platelet Volume 9.7 fL (7.4-10.4); Platelet Count 258 thou/uL (130-400); RBC Distribution Width 12.5 % (11.5-14.5); Red Blood Cell (RBC) Count 4.84 mill/uL (4.70-6.10); White Blood Cell (WBC) Count 19.1 thou/uL (4.8-10.8)
[2019-08-28 04:57] LABS: Anion Gap 15 mmol/L (10-20); BUN (Urea Nitrogen) 24 mg/dL (8.4-25.7); Calc. Creatinine Clearance 83 mL/min (70-130); Calcium 9.2 mg/dL (7.8-10.44); Carbon Dioxide 26 mmol/L (23-31); Chloride 105 mmol/L (98-107); Estimated GFR-MDRD 87; Glucose 148 mg/dL (83-110); Potassium 4.6 mmol/L (3.5-5.1); Sodium 141 mmol/L (136-145)
[2019-08-28] MEDS: Metoclopramide HCl 10 MG/2 ML VIAL IVP SCH ×3 (06:08→21:45)
[2019-08-28] MEDS: Nicotine 14 MG PATCH TOP SCH (08:17)
[2019-08-28] MEDS: Glimepiride 4 MG TAB PO SCH (08:17)
[2019-08-28] MEDS: Aspirin 325 mg Enteric Coated Tablet PO SCH (08:39)
[2019-08-28] MEDS: Carvedilol 3.125 MG TAB PO SCH ×2 (08:39→17:06)
[2019-08-28] MEDS: Famotidine 20 MG TAB PO SCH (08:40)
[2019-08-28] MEDS: Tamsulosin HCl 0.4 MG CAP PO SCH (08:40)
--- NOTE | 2019-08-28 09:08 | OP ---
DATE OF PROCEDURE: 08/27/2019 Mr. Carmona did not require sedation for intubation. A bite block was placed in his mouth. His upper airway was entered with a bronchoscope. Copious amounts of dried and thick secretions were encountered in his upper airway. His vocal cords were eventually visualized. He had minimal cough response and no gag response during the intubation. His entire tracheobronchial tree was inspected. Both tracheobronchial trees were unremarkable as far as endobronchial lesions were concerned, but he did have thick purulent secretions in both lungs. These were aspirated, sent for culture. He had already been started on broad antimicrobial therapy, so we will see if he grows anything out. He tolerated the intubation well. May need a repeat brain imaging. Apparently, his presentation of simply difficulty walking is distinctly different from what I saw today. It is impossible to assess him neurologically with a pCO2 of greater than 120, so we will reassess him in the morning. Job ID: [id number]
[2019-08-28] MEDS ORDERED: Bisacodyl 10 MG SUPP PR PRN (09:31)
[2019-08-28] MEDS ORDERED: methylPREDNISolone Sod Succ 40 MG VIAL IVP SCH (09:45)
--- NOTE | 2019-08-28 10:06 | PRG ---
DATE OF SERVICE: 08/28/2019 SERVICE: Pulmonary Medicine. INTERVAL HISTORY: The patient is doing fine from respiratory standpoint. Breathing comfortably. He is on mechanical ventilation, no significant amount of sedation. He cannot provide me any additional elements of the history. He denies any fevers, chills, nausea, vomiting, or diarrhea. Otherwise, there has been no interval change to his condition. PHYSICAL EXAMINATION: VITAL SIGNS: Afebrile, pulse 110, blood pressure 118/81, respirations 20, and saturation 93% currently on 40% FiO2 and a PEEP of 5. GENERAL: The patient is intubated and sedated. HEENT: Normocephalic and atraumatic. Sclerae white. Conjunctivae pink. Oral mucosa is moist without lesions. LUNGS: Decent air entry. Rhonchi are present. No prolonged expiratory phase or wheezing is appreciated. HEART: Normal rate and regular. ABDOMEN: Soft, nontender, and nondistended. Bowel sounds are positive. MUSCULOSKELETAL: No cyanosis or clubbing. There is no pitting in the bilateral lower extremities. Skin tenting is present throughout. NEUROLOGIC: Grossly nonfocal. LABORATORY DATA: WBC 19.1, hemoglobin 14.4, and platelets 258,000. A pH 7.41, pCO2 of 43, pO2 of 75, corresponding to saturation 95%. Basic metabolic profile is completely unremarkable. Glucose is 148. Coag-negative staph is growing in 1/2 blood cultures. Influenza A and B are unremarkable. Gram-positive cocci in clusters, pairs, and chains are present. ASSESSMENT: 1. Acute hypoxic respiratory failure. 2. Aspiration pneumonitis. 3. Cerebrovascular accident of the right cerebellum. 4. Chronic obstructive pulmonary disease with acute exacerbation. DISCUSSION AND PLAN: We will continue antibiotics, nebulized medications, and steroids. Antibiotics will be limited to 5 days. I will have him work with Physical Therapy and Occupational Therapy. I would like for us to see him wake up a touch more. Certainly, we will be watching his neurologic status closely. Multiple ventilator adjustments have been made to minimize dyssynchrony. Critical care time: 30 minutes. Job ID: [id number] MTDD
--- NOTE | 2019-08-28 10:45 | RAD ---
Chest AP view INDICATION: Intubation COMPARISON: Prior exam dated August 27, 2019 FINDINGS: Lungs:Bibasilar airspace opacities appear improved but persists. COPD changes stable. Cardiac silhouette:Mild cardiac megaly stable Pulmonary vasculature:Normal Pleural spaces:No pleural effusion or pneumothorax is demonstrated. Upper abdomen:No abnormality seen. Osseous structures: No acute osseous abnormality. Additional findings:The patient has been intervally intubated with the ET tube tip is seen 5.7 cm abo ve the level of ethan. IMPRESSION: Interval intubation. Slightly less prominent bilateral lower lobe airspace opacities. Fin dings remain suspicious for pneumonia. COPD changes stable. Cardiomegaly is stable. No pneumothorax
[2019-08-28] MEDS: Acetaminophen 650 MG/20.3 ML UDCUP PO PRN (11:13)
[2019-08-28] MEDS: HumaLOG 300 UNITS/3 ML VIAL SC PRN ×3 (11:41→21:46)
--- NOTE | 2019-08-28 15:49 | PDOC.HOSPP ---
- Subjective Encounter Date: 08/28/19 Encounter Time: 11:00 Subjective: Pt seen for followup re: aspiration pneumonia. Intubated, unable to complete ROS. - Objective Vital Signs & Weight: Vital Signs (12 hours) Temp Pulse Resp BP Pulse Ox 08/28/19 15:23 99 109/77 08/28/19 15:00 98.5 F 08/28/19 14:00 16 08/28/19 13:53 105 H 115/74 08/28/19 12:00 14 08/28/19 10:57 115 H 119/76 08/28/19 10:00 100.2 F H 18 08/28/19 08:19 110 H 118/81 08/28/19 08:00 99.5 F 36 H 93 L 08/28/19 05:57 20 08/28/19 04:00 22 H Weight Admit Weight 173 lb 6.4 oz Weight 173 lb 6.4 oz Most Recent Monitor Data Heart Rate from ECG 100 NIBP 125/83 NIBP BP-Mean 97 Respiration from ECG 25 SpO2 95 I&O: 08/27/19 08/28/19 08/29/19 06:59 06:59 06:59 Intake Total 120 969.8 100 Output Total 775 1050 415 Balance -655 -80.2 -315 Result Diagrams: 08/28/19 04:14 08/28/19 04:14 Additional Labs: Accuchecks 08/28/19 08/27/19 10:10 21:28 POC Glucose 162 H 158 H Labs and MARs reviewed by me EKG Reviewed by me: Yes (Tele: sinus tachycardia) Hospitalist ROS - Review of Systems ROS unobtainable: due to endotracheal tube - Medication Medications: Active Medications Generic Name Dose Route Start Last Admin Trade Name Freq PRN Reason Stop Dose Admin Acetaminophen 650 mg 08/20/19 20:10 08/28/19 11:13 Tylenol Elixir PO 650 mg Q4H PRN Administration Headache, Aches or Pain Albuterol/Ipratropium 3 ml 08/28/19 13:00 08/28/19 13:52 Duoneb NEB 3 ml [id number] MIHIR Administration Aspirin 325 mg 08/19/19 09:00 08/28/19 08:39 Ecotrin PO 325 mg DAILY MIHIR Administration Atorvastatin Calcium 40 mg 08/18/19 21:00 08/27/19 19:47 Lipitor PO Not Given HS MIHIR Bisacodyl 5 mg 08/23/19 08:57 08/25/19 09:32 Dulcolax PO 5 mg DAILYPRN PRN Administration Constipation Bisacodyl 10 mg 08/28/19 09:31 08/28/19 11:11 Dulcolax MI 10 mg DAILYPRN PRN Administration Constipation Carvedilol 3.125 mg 08/20/19 17:00 08/28/19 08:39 Coreg PO 3.125 mg BID-WM MIHIR Administration Famotidine 20 mg 08/26/19 09:00 08/28/19 08:40 Pepcid PO 20 mg DAILY MIHIR Administration Glimepiride 4 mg 08/25/19 08:00 08/28/19 08:17 Amaryl PO Not Given QAM-WM MIHIR Piperacillin Sod/Tazobactam 100 mls @ 200 mls/hr 08/27/19 02:00 08/28/19 14: 11 Sod 3.375 gm/ Sodium Chloride IVPB 100 mls 0200,0800,1400,2000 MIHIR Administration Insulin Human Lispro 0 units 08/20/19 09:34 08/28/19 11:41 Humalog SC 2 unit .MILD SLIDING SCALE PRN Administration Mild Correctional Scale Metoclopramide HCl 10 mg 08/23/19 14:00 08/28/19 14:11 Reglan IVP 10 mg Q8HR MIHIR Administration Nicotine 14 mg 08/21/19 09:00 08/28/19 08:17 Nicoderm Patch TOP Not Given Q24HR [facility] Ondansetron HCl 4 mg 08/18/19 18:57 08/21/19 03:48 Zofran IVP 4 mg Q6H PRN Administration Nausea/Vomiting Propofol 1,000 mg 08/27/19 15:14 08/28/19 03:33 Diprivan IV 09/26/19 15:14 1,000 mg INF PRN Administration TO ACHIEVE GOAL RASS Protocol Sodium Chloride 10 ml 08/18/19 15:44 08/25/19 05:18 Flush - Normal Saline IVF 10 ml PRN PRN Administration Saline Flush Tamsulosin HCl 0.4 mg 08/25/19 09:00 08/28/19 08:40 Flomax PO 0.4 mg DAILY MIHIR Administration - Exam General - other findings: Intubated Eye: anicteric sclera ENT: moist mucosa Neck: no thyromegaly Heart: RRR Heart - other findings: S1, S2, reg, tachy Respiratory: CTAB Gastrointestinal: soft, non-tender Psychiatric - other findings: Unable to assess Hosp A/P (1) Aspiration pneumonia Code(s): J69.0 - PNEUMONITIS DUE TO INHALATION OF FOOD AND VOMIT Status: Acute (2) Cerebellar infarction Code(s): I63.9 - CEREBRAL INFARCTION, UNSPECIFIED Status: Acute (3) Oropharyngeal dysphagia Code(s): R13.12 - DYSPHAGIA, OROPHARYNGEAL PHASE Status: Acute (4) Pulmonary nodule Code(s): R91.1 - SOLITARY PULMONARY NODULE Status: Acute (5) Thyroid nodule Code(s): E04.1 - NONTOXIC SINGLE THYROID NODULE Status: Acute (6) Moderate protein-calorie malnutrition Code(s): E44.0 - MODERATE PROTEIN-CALORIE MALNUTRITION Status: Chronic - Plan plan discussed w/ family, continue antibiotics, respiratory therapy Discussed with family by bedside, updated them. Continue IV Zosyn. PCCM following. Continue aspirin, statin.
[2019-08-28] MEDS: Atorvastatin Calcium 40 MG TAB PO SCH (21:45)
[2019-08-29] MEDS: Piperacillin/Tazobactam 3.375 GM in Sodium Chloride 0.9% 100 ML IVPB SCH ×2 (01:47→07:51)
[2019-08-29 04:11] LABS: #Basophils 0.1 thou/uL (0.0-0.2); #Lymphocytes 2.7 thou/uL (1.20-3.40); #Monocytes 1.9 thou/uL (0.11-0.59); #Neutrophils 12.9 thou/uL (1.40-6.50); %Basophils 0.6 % (0.0-1.0); %Eosinophils 0.2 % (0.0-10.0); %Lymphocytes 15.1 % (21.0-51.0); %Monocytes 10.8 % (0.0-10.0); %Neutrophils 73.4 % (42.0-75.0); Mean Corpuscular HGB CONC 32.7 g/dL (32.0-36.0); Mean Corpuscular Hemoglobin 29.4 pg (27.0-31.0); Mean Corpuscular Volume 89.9 fL (78.0-98.0); Mean Platelet Volume 9.9 fL (7.4-10.4); Platelet Count 268 thou/uL (130-400); RBC Distribution Width 12.2 % (11.5-14.5); Red Blood Cell (RBC) Count 4.77 mill/uL (4.70-6.10); White Blood Cell (WBC) Count 17.6 thou/uL (4.8-10.8)
[2019-08-29 04:25] LABS: Anion Gap 15 mmol/L (10-20); BUN (Urea Nitrogen) 33 mg/dL (8.4-25.7); Calc. Creatinine Clearance 86 mL/min (70-130); Calcium 9.5 mg/dL (7.8-10.44); Carbon Dioxide 24 mmol/L (23-31); Chloride 106 mmol/L (98-107); Estimated GFR-MDRD 90; Glucose 169 mg/dL (83-110); Sodium 141 mmol/L (136-145)
[2019-08-29] MEDS: HumaLOG 300 UNITS/3 ML VIAL SC PRN ×3 (06:01→15:42)
[2019-08-29] MEDS: Metoclopramide HCl 10 MG/2 ML VIAL IVP SCH ×3 (06:01→21:29)
[2019-08-29] MEDS: Carvedilol 3.125 MG TAB PO SCH ×2 (07:54→16:31)
[2019-08-29] MEDS: Famotidine 20 MG TAB PO SCH ×2 (07:54→21:29)
[2019-08-29] MEDS: Aspirin 325 mg Enteric Coated Tablet PO SCH (07:54)
[2019-08-29] MEDS: Nicotine 14 MG PATCH TOP SCH (07:54)
[2019-08-29] MEDS: Tamsulosin HCl 0.4 MG CAP PO SCH (07:54)
[2019-08-29] MEDS: Glimepiride 4 MG TAB PO SCH (07:54)
--- NOTE | 2019-08-29 08:53 | PRG ---
DATE OF SERVICE: 08/29/2019 SUBJECTIVE: The patient is seen and examined at the bedside. He is intubated and nonsedated. There were no any overnight unexpected events. OBJECTIVE: VITAL SIGNS: Blood pressure is 135/91, pulse is 94, respiratory rate is 22, O2 saturation is 95%. His maximal temperature is 99.8. GENERAL: He follows my commands. HEENT: His pupils are responding to light properly. Sclerae are nonicteric. Conjunctivae are pinkish. LUNGS: Breath sounds are somewhat diminished at both bases. HEART: S1 and S2 are normal. No S3. No S4. ABDOMEN: Soft, nontender, and nondistended. EXTREMITIES: No clubbing, cyanosis, or edema. NEUROLOGIC: He follows my commands. He has partial paralysis of the left lower extremity and full of the left upper extremity. IMPRESSION: 1. Acute respiratory failure, to rule out aspiration pneumonia. 2. Recent cerebrovascular accident with left-sided hemiparesis. 3. Oropharyngeal dysphagia. 4. Pulmonary nodule, for outpatient followup. 5. Thyroid nodule, for outpatient followup. DISCUSSION: The patient's sputum is growing Staphylococcus aureus. We should have final report on this culture today. If it is MRSA, we will have to broaden the spectrum and add the vancomycin to his current regimen, which is Zosyn. If Staphylococcus aureus is sensitive to Zosyn, we will continue that. We will continue mechanical ventilation. Pulmonary team is on the case. We will continue aspirin and statin. We will continue his feeding at 35 mL per hour. At this point, we will start 10 units of insulin Lantus since his glycemia is ranging from 160s to above 200s. We will change his Pepcid to Protonix, and we will continue DVT prophylaxis with SCDs. Job ID: [id number]
[2019-08-29] MEDS ORDERED: Sodium Chloride 0.9% (PF) 10 ML VIAL FS PRN (08:59)
[2019-08-29] MEDS ORDERED: methylPREDNISolone Sod Succ 40 MG VIAL IVP SCH (09:00)
[2019-08-29] MEDS ORDERED: Pantoprazole 40 MG VIAL IVP SCH (09:00)
[2019-08-29] MEDS: Insulin Glargine 10 UNITS in Pre-Filled Syringe 1 EACH SC SCH (11:02)
[2019-08-29] MEDS ORDERED: predniSONE 20 MG TAB PO SCH (11:15)
--- NOTE | 2019-08-29 11:28 | PRG ---
DATE OF SERVICE: 08/29/2019 SERVICE: Pulmonary Medicine. INTERVAL HISTORY: The patient is much improved from mentation standpoint. He has not required any sedation since yesterday. With this, he is cool, calm, and collected. He is a little sleepy. With stimulation, he will wake up, but drift off to sleep within about 3 seconds. It is not clear to me whether or not he would be able to tolerate extubation and protect his airway. Time will tell him that, however. He got a PEG tube yesterday. We are using it for feeds. Otherwise, there has been no interval change to his condition. PHYSICAL EXAMINATION: VITAL SIGNS: Afebrile currently with a maximum temperature of 100.2 yesterday. Pulse 76, blood pressure 121/75, respirations 20, and saturation 97% currently on 31% FiO2 and a PEEP of 5. GENERAL: The patient is intubated. He is on no sedation, but he is somnolent. HEENT: Normocephalic and atraumatic. Sclerae white. Conjunctivae pink. Oral mucosa is moist without lesions. LUNGS: Wonderful air entry. There is no prolonged expiratory phase or wheezing present. HEART: Normal rate and regular. ABDOMEN: Soft, nontender, and nondistended. Bowel sounds are positive. MUSCULOSKELETAL: No cyanosis or clubbing. No pitting in the bilateral lower extremities. NEUROLOGIC: Grossly nonfocal. LABORATORY DATA: WBC downtrending to 17.6, hemoglobin 14.0, platelets 268,000. Sodium 141. Basic metabolic profile is otherwise unremarkable. BUN is gently up trending, though the bicarb remains low. Urinalysis is unremarkable. Bronchial washing is growing Staph aureus. Sensitivities are currently pending. Otherwise, normal respiratory shaun is present. Blood culture is growing coag-negative Staph in 1/2 remotely. IMAGING: Chest x-ray demonstrates no acute cardiopulmonary abnormality. There is an endotracheal tube roughly 5 cm above the level of the ethan. Enteric catheter is not present. There is some scar tissue at the left apex perhaps. No effusions are present. Lung volumes are generous in size suggestive of some degree of COPD. ASSESSMENT: 1. Acute hypoxic respiratory failure. 2. Aspiration pneumonitis. 3. Cerebrovascular accident of the right cerebellum. 4. Chronic obstructive pulmonary disease with acute exacerbation. DISCUSSION AND PLAN: We will continue antibiotics, nebulized medications, and steroids. Antibiotics will be limited to 5 days. I will add vancomycin to cover the Staph aureus until sensitivities result. IV steroids will be converted to p.o. since his gut is working. I am inclined to leave him on mechanical ventilation for an additional day. I will have him work with Physical Therapy and Occupational Therapy. I would like for us to see him wake up a touch more. Certainly, we will be watching his neurologic status closely. Critical care time: 30 minutes. Job ID: [id number] MTDD
[2019-08-29] MEDS: Vancomycin HCl 1.25 GM in Sodium Chloride 0.9% 250 ML 250 ML IVPB SCH (11:56)
[2019-08-29] MEDS ORDERED: Vancomycin HCl 1 GM in Premix Bag 1 BAG IVPB SCH (21:00)
[2019-08-29] MEDS: Atorvastatin Calcium 40 MG TAB PO SCH (21:29)
[2019-08-30] MEDS: Vancomycin HCl 1.25 GM in Sodium Chloride 0.9% 250 ML 250 ML IVPB SCH ×2 (01:24→11:54)
[2019-08-30] MEDS: HumaLOG 300 UNITS/3 ML VIAL SC PRN ×3 (01:28→20:18)
[2019-08-30 04:46] LABS: #Lymphocytes 2.3 thou/uL (1.20-3.40); #Monocytes 1.6 thou/uL (0.11-0.59); #Neutrophils 11.7 thou/uL (1.40-6.50); %Basophils 0.3 % (0.0-1.0); %Eosinophils 0.2 % (0.0-10.0); %Lymphocytes 14.7 % (21.0-51.0); %Monocytes 10.2 % (0.0-10.0); %Neutrophils 74.6 % (42.0-75.0); Hemoglobin 13.3 g/dL (14.0-18.0); Mean Corpuscular HGB CONC 32.8 g/dL (32.0-36.0); Mean Corpuscular Hemoglobin 29.3 pg (27.0-31.0); Mean Corpuscular Volume 89.4 fL (78.0-98.0); Mean Platelet Volume 9.5 fL (7.4-10.4); Platelet Count 284 thou/uL (130-400); RBC Distribution Width 12.1 % (11.5-14.5); Red Blood Cell (RBC) Count 4.53 mill/uL (4.70-6.10); White Blood Cell (WBC) Count 15.7 thou/uL (4.8-10.8)
[2019-08-30 05:10] LABS: Phosphorus 2.8 mg/dL (2.3-4.7)
[2019-08-30 05:11] LABS: Anion Gap 14 mmol/L (10-20); BUN (Urea Nitrogen) 30 mg/dL (8.4-25.7); Calc. Creatinine Clearance 100 mL/min (70-130); Calcium 9.6 mg/dL (7.8-10.44); Carbon Dioxide 26 mmol/L (23-31); Chloride 109 mmol/L (98-107); Estimated GFR-MDRD Greater than 90; Glucose 155 mg/dL (83-110); Potassium 3.7 mmol/L (3.5-5.1); Sodium 145 mmol/L (136-145)
[2019-08-30] MEDS: Metoclopramide HCl 10 MG/2 ML VIAL IVP SCH ×3 (06:25→22:11)
[2019-08-30] MEDS: Carvedilol 3.125 MG TAB PO SCH ×2 (08:24→17:52)
[2019-08-30] MEDS: Glimepiride 4 MG TAB PO SCH (08:24)
[2019-08-30] MEDS: Aspirin 325 mg Enteric Coated Tablet PO SCH (08:25)
[2019-08-30] MEDS: Tamsulosin HCl 0.4 MG CAP PO SCH (08:25)
[2019-08-30] MEDS: predniSONE 20 MG TAB PO SCH (08:25)
[2019-08-30] MEDS: Famotidine 20 MG TAB PO SCH ×2 (08:25→20:17)
[2019-08-30] MEDS: Insulin Glargine 10 UNITS in Pre-Filled Syringe 1 EACH SC SCH (08:26)
[2019-08-30] MEDS ORDERED: Pantoprazole 40 MG VIAL IVP SCH (09:00)
[2019-08-30] MEDS ORDERED: Insulin Glargine 5 UNITS in Pre-Filled Syringe 1 EACH SC SCH (12:30)
--- NOTE | 2019-08-30 12:42 | PRG ---
DATE OF SERVICE: 08/30/2019 SUBJECTIVE: The patient is seen and examined at the bedside. His daughter is present in the room during this visit. He extubated himself this morning around 4 o'clock. He seems to be doing well on nasal cannula at this point. He is tolerating tube feeding at 55 mL/hour. OBJECTIVE: VITAL SIGNS: Blood pressure is 126/75, pulse is 80, respiratory rate is 24, O2 saturation is 96% on 3 L by nasal cannula. EYES: His pupils are responding to light properly. Extraocular movements somewhat limited in the right eye to the lateral gaze to the left. LUNGS: Breath sounds diminished at both bases. HEART: S1, S2 normal. No S3. No S4. ABDOMEN: Soft, nondistended. EXTREMITIES: No clubbing, cyanosis, or edema. NEUROLOGIC: He follows my commands. He has some function in his left hand, but none in left forearm and left arm. Left lower extremity is completely paralyzed. LABORATORY DATA: White count of 15.7, hemoglobin of 13.3. Platelet count is 284. Sodium of 145, potassium 3.7, chloride 109, CO2 of 26, BUN 13, creatinine 0.71. Glycemia is ranging from 155 to 203. Microbiology, respiratory culture is growing methicillin sensitive Staphylococcus aureus and urine culture is growing Enterobacter cloacae and small amount of gram-negative rods. One out of two blood cultures came back positive for coagulase negative Staphylococcus, which is contamination most likely. IMPRESSION: 1. Acute respiratory failure secondary to aspiration pneumonia. 2. Recent cerebrovascular accident with a left-sided hemiparesis. 3. Oropharyngeal dysphagia, status post PEG tube placement. Tolerating feeding at 55 mL/hour. 4. Pulmonary nodule, for outpatient followup in 3 months with a PET scan. 5. Thyroid nodule for outpatient followup with ultrasound of the thyroid. DISCUSSION: We are going to switch him back to Zosyn from vancomycin since his sputum is growing methicillin sensitive Staph aureus and we will continue his current regimen with aspirin and statin. We are going to increase the dose of insulin Lantus to 15 units and continue his other regimen with DVT prophylaxis with SCDs. Job ID: [id number]
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
[2019-08-30] MEDS: cefTRIAXone\\ROCEPHIN 2 GM in Sodium Chloride 0.9% 100 ML IVPB SCH (14:00)
[2019-08-30] MEDS ORDERED: Piperacillin/Tazobactam 3.375 GM in Sodium Chloride 0.9% 100 ML IVPB SCH (18:00)
[2019-08-30] MEDS: Atorvastatin Calcium 40 MG TAB PO SCH (20:17)
[2019-08-31] MEDS: Metoclopramide HCl 10 MG/2 ML VIAL IVP SCH ×3 (06:10→21:25)
[2019-08-31] MEDS: Aspirin 325 mg Enteric Coated Tablet PO SCH (08:49)
[2019-08-31] MEDS: Bisacodyl 5 MG TAB PO PRN (08:50)
[2019-08-31] MEDS: predniSONE 20 MG TAB PO SCH (08:50)
[2019-08-31] MEDS: Tamsulosin HCl 0.4 MG CAP PO SCH (08:50)
[2019-08-31] MEDS: Glimepiride 4 MG TAB PO SCH (08:50)
[2019-08-31] MEDS: Famotidine 20 MG TAB PO SCH ×2 (08:50→21:25)
[2019-08-31] MEDS: Carvedilol 3.125 MG TAB PO SCH ×2 (08:50→16:42)
[2019-08-31] MEDS: Insulin Glargine 15 UNITS in Pre-Filled Syringe 1 EACH SC SCH (09:00)
--- NOTE | 2019-08-31 10:27 | PRG ---
DATE OF SERVICE: 08/31/2019 SUBJECTIVE: The patient was seen and examined at the bedside. There were no any unexpected events overnight. He is tolerating his tube feeding at 55 with mild residuals up to 100 mL. OBJECTIVE: VITAL SIGNS: Blood pressure is 128/65, pulse is 79, respiratory rate is 20, and O2 saturation is 97%. HEENT: His pupils are responding to light properly. Sclerae are nonicteric. Oral mucosa is somewhat dry. NECK: Supple. LUNGS: Bilateral crackles at both bases present. HEART: S1 and S2 normal. ABDOMEN: Soft and nontender. PEG tube is in place. NEUROLOGIC: He follows my commands. He seems to be understanding, but he is aphasic and has left-sided hemiparesis with minimal function of the left lower extremity. LABORATORY DATA: Glycemia is ranging from 133 to 195. IMPRESSION: 1. Acute respiratory failure secondary to aspiration pneumonia, status post mechanical ventilation and self extubation by the patient 2 days ago. 2. Recent cerebrovascular accident with left-sided hemiparesis. 3. Oropharyngeal dysphagia, status post PEG tube placement, tolerating feeding at 55 with mild residuals up to 100. 4. Pulmonary nodule, for outpatient workup. 5. Thyroid nodule, for outpatient workup. 6. Aspiration pneumonitis. DISCUSSION: He is switched back to Zosyn since his bronchial washings are growing Staphylococcus aureus, but not methicillin-resistant Staphylococcus aureus. I will continue his regimen with aspirin and statin through the PEG tube. His increased dose of insulin at 15 units is controlling his glycemia better. Also, we will continue his SCDs for DVT prophylaxis, and we will continue his ceftriaxone 2 g every 24 hours. He should be able to go to the stroke unit today if the bed is available. Job ID: [id number]
--- NOTE | 2019-08-31 12:13 | PRG ---
DATE OF SERVICE: 08/31/2019 SERVICE: Pulmonary Medicine. INTERVAL HISTORY: The patient is doing really well from mentation standpoint. He has been awake and alert. He has been cooperative. He is sleeping comfortably. Denies any current overnight events. PHYSICAL EXAMINATION: VITAL SIGNS: Afebrile, pulse 83, blood pressure 128/65, respirations 19, and saturation 96% on 1 L nasal cannula. GENERAL: The patient is awake and alert, in no apparent distress. LUNGS: Decent air entry. Rhonchi are present. There is no prolonged expiratory phase or wheezing present. HEART: Normal rate and regular. ABDOMEN: Soft, nontender, and nondistended. Bowel sounds are positive. MUSCULOSKELETAL: No cyanosis or clubbing. No pitting in the bilateral lower extremities. NEUROLOGIC: Grossly nonfocal. ASSESSMENT: 1. Acute hypoxic respiratory failure. 2. Aspiration pneumonitis. 3. Cerebrovascular accident of the right cerebellum. 4. Chronic obstructive pulmonary disease with acute exacerbation, improving. 5. Oropharyngeal dysphagia, status post PEG tube placement. DISCUSSION AND PLAN: The patient is doing really well from respiratory standpoint. We will continue to work with Physical Therapy, Occupational Therapy, and Speech Pathology. The likelihood that he is going to be able to recover swallow, it is actually quite low. At this point, he is stable for transition out of the ICU. Pulmonary/Critical Care will continue to follow along for the time being. I will increase his free water flushes to 100 q.4. I will repeat basic metabolic profile and CBC tomorrow morning. Job ID: [id number]
[2019-08-31] MEDS: cefTRIAXone\\ROCEPHIN 2 GM in Sodium Chloride 0.9% 100 ML IVPB SCH (13:15)
[2019-08-31] MEDS: HumaLOG 300 UNITS/3 ML VIAL SC PRN ×3 (13:16→23:50)
[2019-08-31] MEDS: Atorvastatin Calcium 40 MG TAB PO SCH (21:25)
[2019-09-01 04:47] LABS: #Basophils 0.1 thou/uL (0.0-0.2); #Eosinphils 0.1 thou/uL (0.0-0.7); #Lymphocytes 2.4 thou/uL (1.20-3.40); #Monocytes 1.3 thou/uL (0.11-0.59); #Neutrophils 9.2 thou/uL (1.40-6.50); %Basophils 0.5 % (0.0-1.0); %Eosinophils 0.5 % (0.0-10.0); %Lymphocytes 18.4 % (21.0-51.0); %Neutrophils 70.6 % (42.0-75.0); Hemoglobin 13.7 g/dL (14.0-18.0); Mean Corpuscular Hemoglobin 29.4 pg (27.0-31.0); Mean Corpuscular Volume 89.1 fL (78.0-98.0); Mean Platelet Volume 9.8 fL (7.4-10.4); Platelet Count 282 thou/uL (130-400); Red Blood Cell (RBC) Count 4.65 mill/uL (4.70-6.10)
[2019-09-01 05:11] LABS: Anion Gap 13 mmol/L (10-20); BUN (Urea Nitrogen) 23 mg/dL (8.4-25.7); Calc. Creatinine Clearance 97 mL/min (70-130); Calcium 9.8 mg/dL (7.8-10.44); Carbon Dioxide 26 mmol/L (23-31); Chloride 110 mmol/L (98-107); Estimated GFR-MDRD Greater than 90; Glucose 152 mg/dL (83-110); Potassium 3.8 mmol/L (3.5-5.1); Sodium 145 mmol/L (136-145)
[2019-09-01] MEDS: Metoclopramide HCl 10 MG/2 ML VIAL IVP SCH ×3 (05:27→21:50)
[2019-09-01] MEDS: Famotidine 20 MG TAB PO SCH ×2 (08:18→21:03)
[2019-09-01] MEDS: Glimepiride 4 MG TAB PO SCH (08:18)
[2019-09-01] MEDS: Insulin Glargine 15 UNITS in Pre-Filled Syringe 1 EACH SC SCH (08:18)
[2019-09-01] MEDS: predniSONE 20 MG TAB PO SCH (08:18)
[2019-09-01] MEDS: Tamsulosin HCl 0.4 MG CAP PO SCH (08:18)
[2019-09-01] MEDS: Aspirin 325 mg Enteric Coated Tablet PO SCH (08:18)
[2019-09-01] MEDS: Carvedilol 3.125 MG TAB PO SCH ×2 (08:19→16:39)
[2019-09-01] MEDS: Acetaminophen 650 MG/20.3 ML UDCUP PO PRN (08:21)
[2019-09-01] MEDS: cefTRIAXone\\ROCEPHIN 2 GM in Sodium Chloride 0.9% 100 ML IVPB SCH (12:29)
[2019-09-01] MEDS: HumaLOG 300 UNITS/3 ML VIAL SC PRN ×2 (12:29→18:21)
--- NOTE | 2019-09-01 14:54 | PRG ---
DATE OF SERVICE: 09/01/2019 SERVICE: Pulmonary Medicine. INTERVAL HISTORY: The patient is doing okay from a respiratory standpoint. He is breathing comfortably. He is tolerating his tube feeds. Neurologically, there has been no interval change to his condition. He was started on 2 L nasal cannula last night, but I think it was more because the alarms were going off with intermittent desaturation as opposed to actual true continuous respiratory failure. PHYSICAL EXAMINATION: VITAL SIGNS: Afebrile, pulse 86, blood pressure 146/90, respirations 18, and saturation 97%, currently on room air. GENERAL: The patient is awake and alert, in no apparent distress. LUNGS: Good air entry. There is no prolonged expiratory phase. No wheezing or crackles are appreciated. HEART: Normal rate and regular. ABDOMEN: Soft, nontender, nondistended. Bowel sounds are positive. MUSCULOSKELETAL: No cyanosis or clubbing. There is no pitting in the bilateral lower extremities. LABORATORY DATA: WBC 13.0 and gently downtrending, hemoglobin 13.7, platelets 288,000. Basic metabolic profile is completely unremarkable. Sodium is stable at 145, though the chloride is gently uptrending. Staph aureus is growing out of the bronchial washings. This is a fairly sensitive organism. Enterobacter and other gram-negative urmila were also identified in the urine, which were also quite sensitive. ASSESSMENT: 1. Acute hypoxic respiratory failure, resolved. 2. Aspiration pneumonitis secondary to methicillin-susceptible Staphylococcus aureus. 3. Cerebrovascular accident of the right cerebellum. 4. Chronic obstructive pulmonary disease with acute exacerbation, resolved. 5. Oropharyngeal dysphagia, status post percutaneous endoscopic gastrostomy tube placement. DISCUSSION AND PLAN: The patient is doing really fine from a respiratory standpoint. We will continue Physical Therapy, Occupational Therapy, and Speech Pathology work. Case management consultation will be placed for the patient for placement. If the patient qualifies for a rehab center, that would be fantastic. Otherwise, he will likely need an interim placement in snf facility to work on many of these rehabilitation issues. Pulmonary will continue to follow. If his sodium trends upward, he may need increase in free water flushes. At this point, he is stable for discharge from the hospital or transition to the floor. Either way, when he leaves the ICU, he will have no further requirements for Pulmonary opinion, and I will sign off. Please call with additional questions or concerns through time. Job ID: [id number]
--- NOTE | 2019-09-01 20:11 | PDOC.HOSPP ---
- Subjective Encounter Date: 09/01/19 Encounter Time: 13:11 Subjective: 74 y/o male with HTN and tobacco abuse admitted with acute onset of bilateral lower extremity weakness and inability to ambulate associated with nausea and vomiting. Evaluation showed acute right cerebellar infacrtion. Hospital course was complicated by acute respiratory failure due to aspiration pneumonia requiinring intubation. Patient also was found to have left upper lobe nodule and thyroid nodule as well as emphysema nad severe dysphagia. he is s/p PEG tibe plavement. He remained aphasic. - Objective Vital Signs & Weight: Vital Signs (12 hours) Temp Pulse Resp Pulse Ox 09/01/19 19:41 96 09/01/19 19:11 94 L 09/01/19 19:10 96 18 94 L 09/01/19 16:00 97.9 F 09/01/19 13:51 88 18 93 L 09/01/19 12:00 97.8 F Weight Admit Weight 173 lb 6.4 oz Weight 173 lb 6.4 oz Most Recent Monitor Data Heart Rate from ECG 92 NIBP 134/74 NIBP BP-Mean 94 Respiration from ECG 18 SpO2 92 I&O: 08/31/19 09/01/19 09/02/19 06:59 06:59 06:59 Intake Total 2213 1677 1291 Output Total 1735 1865 500 Balance 478 -188 791 Result Diagrams: 09/01/19 04:18 09/01/19 04:18 Additional Labs: Accuchecks 09/01/19 09/01/19 09/01/19 18:22 12:25 05:29 POC Glucose 190 H 207 H 131 H 08/31/19 23:49 POC Glucose 172 H Hospitalist ROS - Medication Medications: Active Medications Generic Name Dose Route Start Last Admin Trade Name Freq PRN Reason Stop Dose Admin Acetaminophen 650 mg 08/20/19 20:10 09/01/19 08:21 Tylenol Elixir PO 650 mg Q4H PRN Administration Headache, Aches or Pain Albuterol/Ipratropium 3 ml 08/28/19 13:00 09/01/19 19:10 Duoneb NEB 3 ml [id number] MIHIR Administration Aspirin 325 mg 08/19/19 09:00 09/01/19 08:18 Ecotrin PO 325 mg DAILY MIHIR Administration Atorvastatin Calcium 40 mg 08/18/19 21:00 08/31/19 21:25 Lipitor PO 40 mg HS MIHIR Administration Bisacodyl 5 mg 08/23/19 08:57 08/31/19 08:50 Dulcolax PO 5 mg DAILYPRN PRN Administration Constipation Bisacodyl 10 mg 08/28/19 09:31 08/28/19 11:11 Dulcolax [place] 10 mg DAILYPRN PRN Administration Constipation Carvedilol 3.125 mg 08/20/19 17:00 09/01/19 16:39 Coreg PO 3.125 mg BID-WM MIHIR Administration Famotidine 20 mg 08/29/19 21:00 09/01/19 08:18 Pepcid PO 20 mg BID MIHIR Administration Glimepiride 4 mg 08/25/19 08:00 09/01/19 08:18 Amaryl PO 4 mg QAM-WM MIHIR Administration Insulin Glargine 15 units/ 0.15 mls @ 0 mls/hr 08/31/19 09:00 09/01/19 08:18 Miscellaneous Medication SC 0.15 mls QAM MIHIR Administration Ceftriaxone Sodium 2 gm/ 100 mls @ 200 mls/hr 08/30/19 13:00 09/01/19 12:29 Sodium Chloride IVPB 09/03/19 13:29 100 mls Q24HR MIHIR Administration Insulin Human Lispro 0 units 08/20/19 09:34 09/01/19 18:21 Humalog SC 2 unit .MILD SLIDING SCALE PRN Administration Mild Correctional Scale Metoclopramide HCl 10 mg 08/23/19 14:00 09/01/19 14:50 Reglan IVP 10 mg Q8HR MIHIR Administration Ondansetron HCl 4 mg 08/18/19 18:57 08/21/19 03:48 Zofran IVP 4 mg Q6H PRN Administration Nausea/Vomiting Sodium Chloride 10 ml 08/18/19 15:44 08/25/19 05:18 Flush - Normal Saline IVF 10 ml PRN PRN Administration Saline Flush Tamsulosin HCl 0.4 mg 08/25/19 09:00 09/01/19 08:18 Flomax PO 0.4 mg DAILY MIHIR Administration - Exam General Appearance: awake alert General - other findings: non verbal ENT: normocephalic atraumatic Neck: symmetric Heart: RRR Respiratory: no ronchi, normal chest expansion Respiratory - other findings: fair air entry Gastrointestinal: soft, non-tender, non-distended, normal bowel sounds Gastrointestinal - other findings: PEG tube in place Extremities: no edema Neurological: no new deficit Neurological - other findings: expressive aphasia noted. obeys command Hosp A/P (1) Cerebellar infarction Code(s): I63.9 - CEREBRAL INFARCTION, UNSPECIFIED Status: Acute (2) Acute respiratory failure with hypoxia and hypercarbia Code(s): J96.01 - ACUTE RESPIRATORY FAILURE WITH HYPOXIA; J96.02 - ACUTE RESPIRATORY FAILURE WITH HYPERCAPNIA Status: Acute (3) Tobacco abuse disorder Code(s): Z72.0 - TOBACCO USE Status: Acute (4) Bifascicular block Code(s): I45.2 - BIFASCICULAR BLOCK Status: Acute (5) HTN (hypertension) Code(s): I10 - ESSENTIAL (PRIMARY) HYPERTENSION Status: Acute (6) COPD with acute exacerbation Code(s): J44.1 - CHRONIC OBSTRUCTIVE PULMONARY DISEASE W (ACUTE) EXACERBATION Status: Acute (7) MSSA (methicillin susceptible Staphylococcus aureus) pneumonia Code(s): J15.211 - PNEUMONIA DUE TO METHICILLIN SUSCEP STAPH Status: Acute (8) Aspiration pneumonia Code(s): J69.0 - PNEUMONITIS DUE TO INHALATION OF FOOD AND VOMIT Status: Acute (9) Oropharyngeal dysphagia Code(s): R13.12 - DYSPHAGIA, OROPHARYNGEAL PHASE Status: Acute (10) Pulmonary nodule Code(s): R91.1 - SOLITARY PULMONARY NODULE Status: Acute (11) Thyroid nodule Code(s): E04.1 - NONTOXIC SINGLE THYROID NODULE Status: Acute (12) Moderate protein-calorie malnutrition Code(s): E44.0 - MODERATE PROTEIN-CALORIE MALNUTRITION Status: Chronic - Plan Continue antibiotics continue PT/OT Tube feeding to continue, Outpatient evaluation of throid and lung nodules. bronchodilators as needed. Awaiting Rehab placement
[2019-09-01] MEDS: Atorvastatin Calcium 40 MG TAB PO SCH (21:03)
[2019-09-02] MEDS: HumaLOG 300 UNITS/3 ML VIAL SC PRN ×3 (00:25→17:46)
[2019-09-02] MEDS: Metoclopramide HCl 10 MG/2 ML VIAL IVP SCH ×3 (05:02→21:34)
[2019-09-02] MEDS: Famotidine 20 MG TAB PO SCH ×2 (08:03→21:34)
[2019-09-02] MEDS: Tamsulosin HCl 0.4 MG CAP PO SCH (08:03)
[2019-09-02] MEDS: Aspirin 325 mg Enteric Coated Tablet PO SCH (08:03)
[2019-09-02] MEDS: Glimepiride 4 MG TAB PO SCH (08:03)
[2019-09-02] MEDS: Carvedilol 3.125 MG TAB PO SCH ×2 (08:03→17:44)
[2019-09-02] MEDS: Insulin Glargine 15 UNITS in Pre-Filled Syringe 1 EACH SC SCH (09:46)
--- NOTE | 2019-09-02 11:06 | RAD ---
ABDOMEN ONE VIEW: HISTORY: PEG tube placement. FINDINGS: There is contrast in the PEG tube and in the stomach, indicating appropriate placement and patency. POS: [facility]
[2019-09-02] MEDS ORDERED: GASTROGRAFIN 30 ML BOT ONE (11:11)
[2019-09-02] MEDS: cefTRIAXone\\ROCEPHIN 2 GM in Sodium Chloride 0.9% 100 ML IVPB SCH (12:31)
[2019-09-02] MEDS: Acetaminophen 650 MG/20.3 ML UDCUP PO PRN (12:31)
--- NOTE | 2019-09-02 15:30 | PDOC.HOSPP ---
- Subjective Subjective: awake, non verbal, does not look in acute distress - Objective Vital Signs & Weight: Vital Signs (12 hours) Temp Pulse Pulse Pulse Resp BP BP 09/02/19 13:24 104 H 21 H 09/02/19 12:00 97.4 F L 09/02/19 09:54 108 H 98 114/82 135/74 09/02/19 08:11 94 19 09/02/19 08:00 98.6 F 09/02/19 04:00 98.2 F Pulse Ox Pulse Ox 09/02/19 13:24 90 L 09/02/19 12:00 09/02/19 09:54 92 L 09/02/19 08:11 90 L 09/02/19 08:00 94 L 09/02/19 04:00 Weight Admit Weight 173 lb 6.4 oz Weight 169 lb 1.513 oz Most Recent Monitor Data Heart Rate from ECG 111 NIBP 122/79 NIBP BP-Mean 93 Respiration from ECG 16 SpO2 94 I&O: 09/01/19 09/02/19 09/03/19 06:59 06:59 06:59 Intake Total 1677 2283 1010 Output Total 1865 500 3 Balance -188 1783 1007 Result Diagrams: 09/01/19 04:18 09/01/19 04:18 Additional Labs: Accuchecks 09/02/19 09/02/19 09/02/19 12:33 06:11 00:25 POC Glucose 177 H 142 H 153 H 09/01/19 18:22 POC Glucose 190 H Hospitalist ROS - Medication Medications: Active Medications Generic Name Dose Route Start Last Admin Trade Name Georgiana PRN Reason Stop Dose Admin Acetaminophen 650 mg 08/20/19 20:10 09/02/19 12:31 Tylenol Elixir PO 650 mg Q4H PRN Administration Headache, Aches or Pain Albuterol/Ipratropium 3 ml 08/28/19 13:00 09/02/19 13:24 Duoneb NEB 3 ml [id number] MIHIR Administration Aspirin 325 mg 08/19/19 09:00 09/02/19 08:03 Ecotrin PO 325 mg DAILY MIHIR Administration Atorvastatin Calcium 40 mg 08/18/19 21:00 09/01/19 21:03 Lipitor PO 40 mg HS MIHIR Administration Bisacodyl 5 mg 08/23/19 08:57 08/31/19 08:50 Dulcolax PO 5 mg DAILYPRN PRN Administration Constipation Bisacodyl 10 mg 08/28/19 09:31 08/28/19 11:11 Dulcolax [place] 10 mg DAILYPRN PRN Administration Constipation Carvedilol 3.125 mg 08/20/19 17:00 09/02/19 08:03 Coreg PO 3.125 mg BID-WM MIHIR Administration Famotidine 20 mg 08/29/19 21:00 09/02/19 08:03 Pepcid PO 20 mg BID MIHIR Administration Glimepiride 4 mg 08/25/19 08:00 09/02/19 08:03 Amaryl PO 4 mg QAM-WM MIHIR Administration Insulin Glargine 15 units/ 0.15 mls @ 0 mls/hr 08/31/19 09:00 09/02/19 09:46 Miscellaneous Medication SC 0.15 mls QAM MIHIR Administration Ceftriaxone Sodium 2 gm/ 100 mls @ 200 mls/hr 08/30/19 13:00 09/02/19 12:31 Sodium Chloride IVPB 09/03/19 13:29 100 mls Q24HR MIHIR Administration Insulin Human Lispro 0 units 08/20/19 09:34 09/02/19 12:31 Humalog SC 2 unit .MILD SLIDING SCALE PRN Administration Mild Correctional Scale Metoclopramide HCl 10 mg 08/23/19 14:00 09/02/19 13:34 Reglan IVP 10 mg Q8HR MIHIR Administration Ondansetron HCl 4 mg 08/18/19 18:57 08/21/19 03:48 Zofran IVP 4 mg Q6H PRN Administration Nausea/Vomiting Sodium Chloride 10 ml 08/18/19 15:44 08/25/19 05:18 Flush - Normal Saline IVF 10 ml PRN PRN Administration Saline Flush Tamsulosin HCl 0.4 mg 08/25/19 09:00 09/02/19 08:03 Flomax PO 0.4 mg DAILY MIHIR Administration - Exam General Appearance: awake alert (non verbal) Eye: PERRL Heart: RRR, no murmur Respiratory: no wheezes (poor inspiratory effort), no rales Hosp A/P - Plan (1) Cerebellar infarction Code(s): I63.9 - CEREBRAL INFARCTION, UNSPECIFIED Status: Acute (2) Acute respiratory failure with hypoxia and hypercarbia Code(s): J96.01 - ACUTE RESPIRATORY FAILURE WITH HYPOXIA; J96.02 - ACUTE RESPIRATORY FAILURE WITH HYPERCAPNIA Status: Acute (3) Tobacco abuse disorder Code(s): Z72.0 - TOBACCO USE Status: Acute (4) Bifascicular block Code(s): I45.2 - BIFASCICULAR BLOCK Status: Acute (5) HTN (hypertension) Code(s): I10 - ESSENTIAL (PRIMARY) HYPERTENSION Status: Acute (6) COPD with acute exacerbation Code(s): J44.1 - CHRONIC OBSTRUCTIVE PULMONARY DISEASE W (ACUTE) EXACERBATION Status: Acute (7) MSSA (methicillin susceptible Staphylococcus aureus) pneumonia Code(s): J15.211 - PNEUMONIA DUE TO METHICILLIN SUSCEP STAPH Status: Acute (8) Aspiration pneumonia Code(s): J69.0 - PNEUMONITIS DUE TO INHALATION OF FOOD AND VOMIT Status: Acute (9) Oropharyngeal dysphagia Code(s): R13.12 - DYSPHAGIA, OROPHARYNGEAL PHASE Status: Acute (10) Pulmonary nodule Code(s): R91.1 - SOLITARY PULMONARY NODULE Status: Acute (11) Thyroid nodule Code(s): E04.1 - NONTOXIC SINGLE THYROID NODULE Status: Acute (12) Moderate protein-calorie malnutrition Code(s): E44.0 - MODERATE PROTEIN-CALORIE MALNUTRITION Status: Chronic - Plan for 09/01 Continue antibiotics continue PT/OT Tube feeding to continue, Outpatient evaluation of throid and lung nodules. bronchodilators as needed. Awaiting Rehab placement plan for 09/02 further monitoring and possible discharge to rehab in am.
[2019-09-02] MEDS ORDERED: Sodium Chloride 0.45% 500 ML IV SCH (15:45)
--- NOTE | 2019-09-02 15:55 | PRG ---
DATE OF SERVICE: 09/02/2019 SERVICE: Pulmonary Medicine. INTERVAL HISTORY: The patient is actually doing pretty well from respiratory standpoint. Denies any current chest discomfort, nausea, or vomiting. He clinically appears to be dry. Otherwise, there has been no interval change to his condition. He has no specific complaints. PHYSICAL EXAMINATION: VITAL SIGNS: Afebrile, pulse 104, blood pressure 122/79, respirations 16, saturations 94%, currently on room air. GENERAL: The patient is awake and alert, in no apparent distress. LUNGS: Wonderful air entry. There is no rhonchi or crackles present. No prolonged expiratory phase. HEART: Normal rate, regular. ABDOMEN: Soft, nontender, nondistended. Bowel sounds are positive. MUSCULOSKELETAL: No cyanosis or clubbing. No pitting in the bilateral lower extremities. NEUROLOGIC: Grossly nonfocal. LABORATORY DATA: WBC 13.0, hemoglobin 13.7, platelets 282,000. Bronchial washings are growing Staphylococcus aureus. ASSESSMENT: 1. Acute hypoxic respiratory failure, resolved. 2. Aspiration pneumonia secondary to methicillin-sensitive Staphylococcus aureus. 3. Cerebrovascular accident in the right cerebellum. 4. Chronic obstructive pulmonary disease with acute exacerbation, resolved. 5. Oropharyngeal dysphagia, status post percutaneous gastrostomy tube placement. DISCUSSION AND PLAN: The patient appears to be a touch dry. I will introduce a little half-normal saline. If he still here tomorrow morning, we will check some chemistries. Pulmonary/Critical Care will continue to follow along in this location. From a purely respiratory perspective, he is stable for transition out of the hospital. Job ID: [id number]
[2019-09-02] MEDS: Lactated Ringer's 1,000 ML IV SCH (16:50)
[2019-09-02] MEDS: Atorvastatin Calcium 40 MG TAB PO SCH (21:34)
[2019-09-03] MEDS: Lactated Ringer's 1,000 ML IV SCH ×2 (05:00→12:43)
[2019-09-03 05:35] LABS: #Basophils 0.1 thou/uL (0.0-0.2); #Eosinphils 0.4 thou/uL (0.0-0.7); #Lymphocytes 3.1 thou/uL (1.20-3.40); #Monocytes 1.1 thou/uL (0.11-0.59); #Neutrophils 10.3 thou/uL (1.40-6.50); %Basophils 0.6 % (0.0-1.0); %Eosinophils 2.7 % (0.0-10.0); %Lymphocytes 20.5 % (21.0-51.0); %Monocytes 7.6 % (0.0-10.0); %Neutrophils 68.6 % (42.0-75.0); Hemoglobin 14.3 g/dL (14.0-18.0); Mean Corpuscular HGB CONC 32.2 g/dL (32.0-36.0); Mean Corpuscular Hemoglobin 29.4 pg (27.0-31.0); Mean Corpuscular Volume 91.1 fL (78.0-98.0); Mean Platelet Volume 10.4 fL (7.4-10.4); Platelet Count 280 thou/uL (130-400); RBC Distribution Width 12.4 % (11.5-14.5); Red Blood Cell (RBC) Count 4.87 mill/uL (4.70-6.10)
[2019-09-03 05:54] LABS: Anion Gap 14 mmol/L (10-20); BUN (Urea Nitrogen) 24 mg/dL (8.4-25.7); Calc. Creatinine Clearance 94 mL/min (70-130); Calcium 9.3 mg/dL (7.8-10.44); Carbon Dioxide 27 mmol/L (23-31); Chloride 108 mmol/L (98-107); Estimated GFR-MDRD Greater than 90; Glucose 178 mg/dL (83-110); Phosphorus 3.8 mg/dL (2.3-4.7); Potassium 3.7 mmol/L (3.5-5.1); Sodium 145 mmol/L (136-145)
[2019-09-03] MEDS: Metoclopramide HCl 10 MG/2 ML VIAL IVP SCH ×3 (06:57→20:47)
[2019-09-03] MEDS: Famotidine 20 MG TAB PO SCH ×2 (09:33→20:47)
[2019-09-03] MEDS: Tamsulosin HCl 0.4 MG CAP PO SCH (09:34)
[2019-09-03] MEDS: Carvedilol 3.125 MG TAB PO SCH ×2 (09:34→16:47)
[2019-09-03] MEDS: Glimepiride 4 MG TAB PO SCH (09:34)
[2019-09-03] MEDS: Aspirin 325 mg Enteric Coated Tablet PO SCH (09:34)
[2019-09-03] MEDS: Insulin Glargine 15 UNITS in Pre-Filled Syringe 1 EACH SC SCH (09:34)
[2019-09-03 11:53] VITALS: BMI 23.6
[2019-09-03] MEDS: cefTRIAXone\\ROCEPHIN 2 GM in Sodium Chloride 0.9% 100 ML IVPB SCH (12:42)
[2019-09-03] MEDS: HumaLOG 300 UNITS/3 ML VIAL SC PRN ×2 (13:01→17:37)
--- NOTE | 2019-09-03 17:01 | PRG ---
DATE OF SERVICE: 09/03/2019 SERVICE: Pulmonary Medicine. INTERVAL HISTORY: The patient is doing really well from respiratory standpoint. Breathing comfortably. There has been no interval change to the patient's condition. He remains on room air. Otherwise, he has been doing fairly well and there has been no respiratory events. PHYSICAL EXAMINATION: VITAL SIGNS: Afebrile, pulse 100, blood pressure 136/76, respirations 18, and saturation 96% on 2 L nasal cannula. GENERAL: The patient is awake and alert, in no apparent distress. LUNGS: Decent air entry. There is no crackles or rhonchi today. No prolonged expiratory phase or wheezing is appreciated. HEART: Normal rate. Regular. ABDOMEN: Soft, nontender, and nondistended. Bowel sounds positive. MUSCULOSKELETAL: No cyanosis or clubbing. No pitting in the bilateral lower extremities. He still has some dry skin, but his tenting has improved slightly. LABORATORY DATA: WBC 15.0, hemoglobin 14.3, and platelets 280,000. Sodium 145 and potassium 3.7 and roughly stable. Basic metabolic profile, magnesium and phosphorous fall within the normal limits. Staph aureus is growing in bronchial washing. ASSESSMENT: 1. Acute hypoxic respiratory failure, resolved. 2. Aspiration pneumonia secondary to methicillin-susceptible Staphylococcus aureus. 3. Cerebrovascular accident of the right cerebellum with history of prior strokes. 4. Chronic obstructive pulmonary disease with acute exacerbation, resolved to baseline. 5. Oropharyngeal dysphagia, status post percutaneous endoscopic gastrostomy tube placement. DISCUSSION AND PLAN: The patient is doing well from respiratory standpoint. If he continues to develop dehydration, we may need to increase his free water flushes slightly. At this point, he has no further requirements for inpatient Pulmonary or Critical Care opinion, and I will sign off. Antibiotic will be discontinued after this evening's dose. Please call if he develops increasing respiratory issues through time. Job ID: [id number]
--- NOTE | 2019-09-03 17:03 | PDOC.HOSPP ---
- Subjective Subjective: seems comfortable and oriented, does have a wet cough but is not expectorating any phlegm. - Objective Vital Signs & Weight: Vital Signs (12 hours) Temp Pulse Pulse Pulse Resp BP BP 09/03/19 16:02 97.9 F 100 18 09/03/19 14:59 99 92 136/76 132/92 H 09/03/19 12:00 91 20 09/03/19 11:45 97.6 F 93 16 09/03/19 08:00 09/03/19 07:39 98.0 F 99 20 09/03/19 06:19 93 22 H 09/03/19 05:00 97.6 F 101 H 18 BP BP Pulse Ox 09/03/19 16:02 136/76 96 09/03/19 14:59 09/03/19 12:00 94 L 09/03/19 11:45 129/66 94 L 09/03/19 08:00 94 L 09/03/19 07:39 139/86 94 L 09/03/19 06:19 93 L 09/03/19 05:00 146/89 H 92 L Weight Admit Weight 173 lb 6.4 oz Weight 169 lb 1.513 oz Most Recent Monitor Data Heart Rate from ECG 95 NIBP 131/86 NIBP BP-Mean 101 Respiration from ECG 22 SpO2 96 I&O: 09/02/19 09/03/19 09/04/19 06:59 06:59 06:59 Intake Total 2283 4086 1026 Output Total 500 4 Balance 1783 4082 1026 Result Diagrams: 09/03/19 03:55 09/03/19 03:55 Additional Labs: Accuchecks 09/03/19 09/03/19 09/02/19 10:36 06:09 23:49 POC Glucose 191 H 188 H 125 H 09/02/19 17:49 POC Glucose 166 H Hospitalist ROS - Medication Medications: Active Medications Generic Name Dose Route Start Last Admin Trade Name Freq PRN Reason Stop Dose Admin Acetaminophen 650 mg 08/20/19 20:10 09/02/19 12:31 Tylenol Elixir PO 650 mg Q4H PRN Administration Headache, Aches or Pain Albuterol/Ipratropium 3 ml 08/28/19 13:00 09/03/19 12:00 Duoneb NEB 3 ml [id number] MIHIR Administration Aspirin 325 mg 08/19/19 09:00 09/03/19 09:34 Ecotrin PO 325 mg DAILY MIHIR Administration Atorvastatin Calcium 40 mg 08/18/19 21:00 09/02/19 21:34 Lipitor PO 40 mg HS MIHIR Administration Bisacodyl 5 mg 08/23/19 08:57 08/31/19 08:50 Dulcolax PO 5 mg DAILYPRN PRN Administration Constipation Bisacodyl 10 mg 08/28/19 09:31 08/28/19 11:11 Dulcolax [place] 10 mg DAILYPRN PRN Administration Constipation Carvedilol 3.125 mg 08/20/19 17:00 09/03/19 16:47 Coreg PO 3.125 mg BID-WM MIHIR Administration Famotidine 20 mg 08/29/19 21:00 09/03/19 09:33 Pepcid PO 20 mg BID MIHIR Administration Glimepiride 4 mg 08/25/19 08:00 09/03/19 09:34 Amaryl PO 4 mg QAM-WM MIHIR Administration Insulin Glargine 15 units/ 0.15 mls @ 0 mls/hr 08/31/19 09:00 09/03/19 09:34 Miscellaneous Medication SC 0.15 mls QAM MIHIR Administration Lactated Ringer's 1,000 mls @ 75 mls/hr 09/02/19 15:45 09/03/19 12:43 Lactated Ringer's IV 1,000 mls .[id number] MIHIR Administration Insulin Human Lispro 0 units 08/20/19 09:34 09/03/19 13:01 Humalog SC 2 unit .MILD SLIDING SCALE PRN Administration Mild Correctional Scale Metoclopramide HCl 10 mg 08/23/19 14:00 09/03/19 15:41 Reglan IVP 10 mg Q8HR MIHIR Administration Ondansetron HCl 4 mg 08/18/19 18:57 08/21/19 03:48 Zofran IVP 4 mg Q6H PRN Administration Nausea/Vomiting Sodium Chloride 10 ml 08/18/19 15:44 08/25/19 05:18 Flush - Normal Saline IVF 10 ml PRN PRN Administration Saline Flush Tamsulosin HCl 0.4 mg 08/25/19 09:00 12/11/19 09:34 Flomax PO 0.4 mg DAILY MIHIR Administration - Exam General Appearance: awake alert Eye: PERRL ENT: normocephalic atraumatic Neck: supple Heart: RRR, no murmur Respiratory: no wheezes (poor inspiratory effort) Hosp A/P - Plan (1) Cerebellar infarction Code(s): I63.9 - CEREBRAL INFARCTION, UNSPECIFIED Status: Acute (2) Acute respiratory failure with hypoxia and hypercarbia Code(s): J96.01 - ACUTE RESPIRATORY FAILURE WITH HYPOXIA; J96.02 - ACUTE RESPIRATORY FAILURE WITH HYPERCAPNIA Status: Acute (3) Tobacco abuse disorder Code(s): Z72.0 - TOBACCO USE Status: Acute (4) Bifascicular block Code(s): I45.2 - BIFASCICULAR BLOCK Status: Acute (5) HTN (hypertension) Code(s): I10 - ESSENTIAL (PRIMARY) HYPERTENSION Status: Acute (6) COPD with acute exacerbation Code(s): J44.1 - CHRONIC OBSTRUCTIVE PULMONARY DISEASE W (ACUTE) EXACERBATION Status: Acute (7) MSSA (methicillin susceptible Staphylococcus aureus) pneumonia Code(s): J15.211 - PNEUMONIA DUE TO METHICILLIN SUSCEP STAPH Status: Acute (8) Aspiration pneumonia Code(s): J69.0 - PNEUMONITIS DUE TO INHALATION OF FOOD AND VOMIT Status: Acute (9) Oropharyngeal dysphagia Code(s): R13.12 - DYSPHAGIA, OROPHARYNGEAL PHASE Status: Acute (10) Pulmonary nodule Code(s): R91.1 - SOLITARY PULMONARY NODULE Status: Acute (11) Thyroid nodule Code(s): E04.1 - NONTOXIC SINGLE THYROID NODULE Status: Acute (12) Moderate protein-calorie malnutrition Code(s): E44.0 - MODERATE PROTEIN-CALORIE MALNUTRITION Status: Chronic - Plan for 09/01 Continue antibiotics continue PT/OT Tube feeding to continue, Outpatient evaluation of throid and lung nodules. bronchodilators as needed. Awaiting Rehab placement plan for 09/02 further monitoring and possible discharge to rehab in am. plan for 09/03 tolerating feeding without any residual he did receive last dose of Rocephin PT to evaluate him again with possible discharge in am will do a cxr
--- NOTE | 2019-09-03 17:40 | RAD ---
EXAM: XR Chest 1 View Portable PROVIDED CLINICAL HISTORY: Cough COMPARISON: 08/28/2019 FINDINGS: Cardiac and mediastinal silhouette is within normal limits. Patchy bibasilar opacities may reflect chandler bsegmental atelectasis. Scarring-type changes at the left lung apex and emphysematous changes are redemonstrated. IMPRESSION: Patchy bibasilar airspace disease that may reflect subsegmental atelectasis and/or pneumonia.
[2019-09-03] MEDS: Atorvastatin Calcium 40 MG TAB PO SCH (20:47)
[2019-09-04] MEDS: Lactated Ringer's 1,000 ML IV SCH (03:43)
[2019-09-04 05:14] LABS: Anion Gap 14 mmol/L (10-20); BUN (Urea Nitrogen) 19 mg/dL (8.4-25.7); Calc. Creatinine Clearance 98 mL/min (70-130); Calcium 9.4 mg/dL (7.8-10.44); Carbon Dioxide 24 mmol/L (23-31); Chloride 111 mmol/L (98-107); Estimated GFR-MDRD Greater than 90; Glucose 141 mg/dL (83-110); Potassium 4.4 mmol/L (3.5-5.1); Sodium 145 mmol/L (136-145)
[2019-09-04 05:18] LABS: #Basophils 0.2 thou/uL (0.0-0.2); #Eosinphils 0.6 thou/uL (0.0-0.7); #Lymphocytes 2.8 thou/uL (1.20-3.40); #Monocytes 1.4 thou/uL (0.11-0.59); #Neutrophils 10.3 thou/uL (1.40-6.50); %Eosinophils 3.7 % (0.0-10.0); %Lymphocytes 18.5 % (21.0-51.0); %Monocytes 9.2 % (0.0-10.0); %Neutrophils 67.6 % (42.0-75.0); Hemoglobin 14.8 g/dL (14.0-18.0); Mean Corpuscular HGB CONC 32.9 g/dL (32.0-36.0); Mean Corpuscular Hemoglobin 29.7 pg (27.0-31.0); Mean Corpuscular Volume 90.1 fL (78.0-98.0); Mean Platelet Volume 10.1 fL (7.4-10.4); Platelet Count 255 thou/uL (130-400); RBC Distribution Width 12.6 % (11.5-14.5); Red Blood Cell (RBC) Count 4.99 mill/uL (4.70-6.10); White Blood Cell (WBC) Count 15.3 thou/uL (4.8-10.8)
[2019-09-04] MEDS: Metoclopramide HCl 10 MG/2 ML VIAL IVP SCH (05:58)
[2019-09-04] MEDS: Tamsulosin HCl 0.4 MG CAP PO SCH (09:38)
[2019-09-04] MEDS: Carvedilol 3.125 MG TAB PO SCH (09:38)
[2019-09-04] MEDS: Glimepiride 4 MG TAB PO SCH (09:38)
[2019-09-04] MEDS: Aspirin 325 mg Enteric Coated Tablet PO SCH (09:38)
[2019-09-04] MEDS: Famotidine 20 MG TAB PO SCH (09:38)
[2019-09-04] MEDS: Insulin Glargine 15 UNITS in Pre-Filled Syringe 1 EACH SC SCH (09:43)
[2019-09-04 11:26] VITALS: TEMP 97.6
[2019-09-04 12:01] VITALS: BP 133/81
--- NOTE | 2019-09-04 19:47 | DIS ---
DATE OF ADMISSION: 08/18/2019 DATE OF DISCHARGE: 09/04/2019 HISTORY OF PRESENT STAY: The patient was admitted on 08/18/2019, for inability to ambulate, also nausea and vomiting, vision was very altered. He was diagnosed with acute cerebrovascular accident. He was started on statin and aspirin. Neurology was consulted. MRI of the brain showed acute to early subacute infarction in the right cerebellar hemisphere and involving a portion of the right middle cerebellar peduncle as well as a small portion of the right aspect of the midbrain. Also showed chronic small-vessel ischemic changes. CT of the chest did show a nodule in the right upper lobe. Pulmonology was consulted. He had a skin lesion on his vaz, but workup was postponed prioritizing his current issues. Carotid Doppler showed no evidence of significant extracranial internal carotid artery stenosis. Pulmonary did recommend doing a PET scan in 3 months to further investigate his pulmonary nodules. A modified barium swallow was done that showed aspiration with thin liquids and nectar thick liquids and honey thick liquids. He was started on aspirin daily. His echocardiogram showed an EF of 50% to 55% and a grade 1/3 diastolic dysfunction and mild systolic dysfunction. He was started on Coreg 3.125 p.o. twice a day. The patient did undergo a PEG tube placement and was started on feeding. GI was consulted and they discussed the risks and benefits of placing a PEG tube. Also, they recommended colonoscopy at some point for colon cancer screening considering his family history of colon cancer. Also, he was noted to have a gallstone, but it was asymptomatic, so no further management was suggested. During the PEG tube placement, the EEG did not reveal any ulcers in the duodenum or the stomach. At some point, he did develop new weakness in the left upper extremity. A repeat CT of the brain without contrast was done. An MRI of the brain was done as well that showed continued evolution of the right cerebellar infarct with involvement of the brainstem to the right of midline. The patient remained drowsy and although at some point, he was approved to go to rehab. He was kept here for further monitoring. At some point, he did have beats, but he was already on Coreg. No change was done to his management. On 08/27, he developed a fever, tachycardia, and elevated WBCs. A chest x-ray was done that showed a pneumonia. He was started on Zosyn for aspiration pneumonia. He was transferred to CCU for intubation. His sputum grew Staph aureus. Vancomycin was added to cover possibility of Staph aureus. He was on neb treatments and steroids. His sputum culture showed methicillin-sensitive Staph aureus. He was continued on ceftriaxone 2 g every 24 hours. He was extubated and after 2 days, was transferred to the Stroke Unit. He continued to work with Physical Therapy, Occupational Therapy, and Speech Pathology. He continued to do well, tolerating his feeds. A repeat chest x-ray showed patchy basilar airspace disease, may be reflecting subsegmental atelectasis and/or pneumonia. Today, for the past 24 hours, he has been afebrile. Actually, he has been having normal temperature for many days, he appears to be comfortable, tolerating his feeds and does not appear in distress. His most recent labs showing trending down of his WBCs. Pulmonary signed off him. He finished his course of Rocephin. He does have placement at a rehab facility. He will be discharged. DISCHARGE MEDICATIONS: 1. Aspirin 325 once a day. 2. Atorvastatin 40 mg through PEG tube once a day. 3. Dulcolax as needed. 4. Coreg 3.125 mg twice a day. 5. Pepcid 20 mg twice a day. 6. Glimepiride 4 mg once a day. 7. Sliding scale. 8. Flomax 0.4 mg once a day. 9. Augmentin 875 p.o. twice a day for a week. 10. Natural Tears. PLAN: 1. The patient will need a thyroid ultrasound as an outpatient for his thyroid nodule. 2. He will need a Plastic Surgery referral for his skin lesion. 3. He will need to follow with Dr. Roa in 3 months for PET scan to further evaluate his lung nodules. TIME SPENT: More than half an hour spent to discharge this patient. Job ID: [id number]
== END 2019-09-04 15:28 | DRG 64 ==
LOC: ERS 12:52 → 2SE 16:45 → CCU 08-27 13:15 → 2SE 09-03 04:59
PROVIDERS: ADMIT Internal Medicine; ATTEND Internal Medicine
PROC: 3E02340 Introduction of Influenza Vaccine into Muscle, Percutaneous Approach (ICD-10-PCS; 2019-08-19)
PROC: 0DH63UZ Insertion of Feeding Device into Stomach, Percutaneous Approach (ICD-10-PCS; principal; 2019-08-20)
PROC: 0BH18EZ Insertion of Endotracheal Airway into Trachea, Via Natural or Artificial Opening Endoscopic (ICD-10-PCS; 2019-08-27)
PROC: 5A1945Z Respiratory Ventilation, 24-96 Consecutive Hours (ICD-10-PCS; 2019-08-27)
PROC: 0B9M8ZZ Drainage of Bilateral Lungs, Via Natural or Artificial Opening Endoscopic (ICD-10-PCS; 2019-08-27)
DX: I63.511 Cerebral infarction due to unspecified occlusion or stenosis of right middle cerebral artery (principal); J69.0 Pneumonitis due to inhalation of food and vomit; J96.01 Acute respiratory failure with hypoxia; J96.02 Acute respiratory failure with hypercapnia; J15.211 Pneumonia due to Methicillin susceptible Staphylococcus aureus; I45.2 Bifascicular block; E44.0 Moderate protein-calorie malnutrition; G81.94 Hemiplegia, unspecified affecting left nondominant side; E04.1 Nontoxic single thyroid nodule; R47.1 Dysarthria and anarthria; R13.12 Dysphagia, oropharyngeal phase; J43.9 Emphysema, unspecified; R91.1 Solitary pulmonary nodule; C44.309 Unspecified malignant neoplasm of skin of other parts of face; R29.703 NIHSS score 3; R40.2362 Coma scale, best motor response, obeys commands, at arrival to emergency department; R40.2142 Coma scale, eyes open, spontaneous, at arrival to emergency department; R40.2252 Coma scale, best verbal response, oriented, at arrival to emergency department; F17.290 Nicotine dependence, other tobacco product, uncomplicated; Z68.23 Body mass index [BMI] 23.0-23.9, adult; Z79.899 Other long term (current) drug therapy; Z23 Encounter for immunization
CPT/HCPCS: 36415; 36416; 70450; 70551; 71045; 71260; 74018; 74230; 80048; 80053; 80061; 80307; 81001; 82140; 82550; 82805; 83605; 83690; 83735; 83880; 84100; 84443; 84484; 85014; 85018; 85025; 87040; 87070; 87077; 87086; 87149; 87186; 87205; 87804; 90471; 90662; 90670; 93005; 93306; 93880; 94002; 94003; 94640; 96361; 96374; G0008; G0009; J0690; J0696; J1815; J2405; J2543; J2704; J2765; J2920; J3370; J3490; J7050; J7512; J7620; Q9963; Q9967; S0028

== ENCOUNTER 2019-10-23 11:06 | Inpatient (IN) | payer MEDICARE ==
[2019-10-23] MEDS ORDERED: Cefepime 2 GM VIAL ONE (11:36)
--- NOTE | 2019-10-23 11:49 | RAD ---
Chest AP view INDICATION: Dyspnea COMPARISON: September 09, 2019 chest radiograph FINDINGS: Lungs:Scarlike opacity within the left upper lobe is stable. Spiculated pulmonary nodule the right up per lobe is stable. There is new airspace consolidation within the right lower lobe consistent with pneumonia. Patchy airspace opacities involving the left lower lobe. Cardiac silhouette:Stable mild cardiomegaly Pulmonary vasculature:Normal Pleural spaces:No pleural effusion or pneumothorax is demonstrated. Upper abdomen:No abnormality seen. Osseous structures: No acute osseous abnormality. Additional findings:None. IMPRESSION: 1. New bilateral lower lobe pneumonia. 2. Stable right upper lobe pulmonary nodule. Recommendations as per the CT of the thorax dated Novemb 2018.
[2019-10-23 11:55] LABS: Bilirubin Negative (Negative); Blood, Urine 3+ (Negative); Clarity Turbid (Clear); Glucose, Urine (Dipstick) Normal (Negative); Leukocyte 25 Leu/uL (Negative); Nitrite Negative (Negative); Protein, Urine (Dipstick) 30 mg/dL (Neg-Trace); RBC/HPF Greater than 50 HPF (0-3); Squamous Epithelial None Seen HPF (0-3); Urobilinogen Normal mg/dL (Less than 2); WBC/HPF 21-50 HPF (0-3)
[2019-10-23 11:57] LABS: Bacteria/HPF 1+ HPF (None Seen)
[2019-10-23 12:00] LABS: Actual Bicarbonate (HCO3a) 19.9 mEq/L (22-28); Analyzer IN Cardio ER; Base Excess (BEa) -3.3 mEq/L (-2.0 to +3.0); CO2 Tension 30.1 mmHg (35.0-45.0); Calcium, Ionized 1.11 mmol/L (1.12-1.30); Carboxyhemoglobin (COHb) 0.2 gm% (0.0-3.0); Hemoglobin (Hb) 11.5 g/dL (14.0-18.0); Potassium - ABG Lab 3.91 mmol/L (3.70-5.30); pH, Arterial 7.44 (7.35-7.45)
[2019-10-23 12:02] LABS: O2 Tension (PaO2) 57.6 mmHg (> 70.0)
[2019-10-23 12:03] LABS: ALV-art Gradient 332.575 (0-20); Puncture Site RRA
[2019-10-23 12:07] LABS: Hemoglobin 12.7 g/dL (14.0-18.0); Mean Corpuscular HGB CONC 31.4 g/dL (32.0-36.0); Mean Corpuscular Hemoglobin 28.3 pg (27.0-31.0); Mean Corpuscular Volume 90.1 fL (78.0-98.0); Mean Platelet Volume 9.9 fL (7.4-10.4); Platelet Count 307 thou/uL (130-400); RBC Distribution Width 13.2 % (11.5-14.5); Red Blood Cell (RBC) Count 4.49 mill/uL (4.70-6.10); White Blood Cell (WBC) Count 23.5 thou/uL (4.8-10.8)
[2019-10-23 12:14] LABS: ALT (SGPT) 40 U/L (8-55); AST (SGOT) 47 U/L (5-34); Albumin 2.6 g/dL (3.4-4.8); Alkaline Phosphatase 459 U/L (40-110); Anion Gap 13 mmol/L (10-20); BUN (Urea Nitrogen) 28 mg/dL (8.4-25.7); Bilirubin, Total 0.7 mg/dL (0.2-1.2); Calc. Creatinine Clearance 0 mL/min (70-130); Calcium 8.8 mg/dL (7.8-10.44); Carbon Dioxide 26 mmol/L (23-31); Chloride 100 mmol/L (98-107); Estimated GFR-MDRD Greater than 90; Globulin 3.7 g/dL (2.4-3.5); Glucose 263 mg/dL (83-110); Potassium 4.5 mmol/L (3.5-5.1); Protein, Total 6.3 g/dL (5.8-8.1); Sodium 134 mmol/L (136-145)
[2019-10-23 12:29] LABS: Band 7 % (5-11); Lymphocytes 9 % (21-51); MDiff Complete? YES; Monocytes 6 % (0-10); Neutrophil 78 % (42-75); Platelet Morphology Comment Appears Adequate; RBC Morphology Normal
[2019-10-23] MEDS ORDERED: Vancomycin 1.5 GRAM/300 ML BAG 1.5 GM in Premix Bag 1 BAG IVPB SCH (13:00)
[2019-10-23 15:03] LABS: Troponin I Less than 0.010 ng/mL (< 0.028)
[2019-10-23] MEDS ORDERED: Lorazepam 2 MG/ML VIAL ONE (15:12)
[2019-10-23 15:19] LABS: Lactic Acid 5.3 mmol/L (0.5-2.2)
[2019-10-23] MEDS ORDERED: Dextrose 5% in Water 1,000 ML IV PRN (15:44)
[2019-10-23] MEDS ORDERED: Dextrose 50% Abboject 50 ML SYRINGE SLOW IVP PRN (15:44)
[2019-10-23] MEDS ORDERED: traMADol HCl 50 MG TAB PER TUBE PRN (15:48)
[2019-10-23] MEDS ORDERED: Bacteriostatic Water 30 ML VIAL FS PRN (15:59)
[2019-10-23] MEDS ORDERED: Sodium Chloride 0.9% (PF) 10 ML VIAL FS PRN (15:59)
--- NOTE | 2019-10-23 16:46 | CON ---
DATE OF CONSULTATION: 10/23/2019 CONSULTING PHYSICIAN: Dr. Bueno. REASON FOR CONSULTATION: Acute respiratory failure related to pneumonia. HISTORY OF PRESENT ILLNESS: Mr. Carmona is a 74-year-old who was transported here from a [facility] in [place]. He apparently had a stroke several months ago. He has had a difficult time recuperating. I believe he was intubated during hospitalization here back in the fall. He was taken care of by my associate, Dr. Roa. He has a known right upper lobe pulmonary nodule which Dr. Roa is following. Today, he had a fever and shortness of breath while in the [facility]. He is brought here. He was placed on high-flow oxygen, but was still having problems with desaturations, so he was subsequently placed on BiPAP. He has a standing DNAR order and has reaffirmed that while here. He is accompanied by his son-in-law and his daughter. PAST MEDICAL HISTORY: 1. Stroke. 2. Chronic obstructive pulmonary disease. 3. Skin cancer. 4. Hyperlipidemia. PAST SURGICAL HISTORY: 1. He has had back surgery. 2. PEG tube placement. FAMILY MEDICAL HISTORY: Remarkable for cancer. SOCIAL HISTORY: He was a pack-a-day smoker, quit about 5 years ago, was dipping snuff. MEDICATIONS PRIOR TO ADMISSION: 1. Levaquin 500 mg once daily, started 10/19/2019. 2. Metoprolol 25 mg b.i.d. 3. Polyethylene glycol 17 g once daily per tube. 4. Glargine insulin 18 units subcu, dosing interval unknown. 5. Glimepiride 4 mg per tube once daily. 6. Famotidine 20 mg per tube twice daily. 7. DuoNeb every 6 hours as needed. 8. Aspirin 325 mg per tube daily. 9. Atorvastatin 40 mg per tube twice daily. 10. Vitamin B12 1000 mcg injected subcutaneously once a week. 11. Vitamin D3 5000 units per tube daily. 12. Vancomycin 250 mg orally starting 10/22/2019. 13. Tramadol 50 mg three times daily. 14. Tamsulosin 0.4 mg daily. ALLERGIES: CODEINE. REVIEW OF SYSTEMS: Cannot be obtained as the patient is aphasic. PHYSICAL EXAMINATION: VITAL SIGNS: Temperature 98.8, pulse 105, blood pressure 113/71, respiratory rate 30. He is currently on BiPAP, appears somewhat uncomfortable with his breathing. His FiO2 is currently set at 60%. GENERAL: He is an elderly man who appears older than stated age. He is very disheveled. HEENT: Pupils are reactive. Sclerae anicteric. Oropharynx dry. NECK: No adenopathy or JVD. LUNGS: Crackles and wheezing right lower lobe, left side clear. CARDIOVASCULAR: S1, S2, tachycardic without murmur. ABDOMEN: Soft and nontender. PEG tube noted well kept. EXTREMITIES: No clubbing, cyanosis, or edema. NEUROLOGIC: He cannot move his left arm and left leg but moves his right arm and right leg appropriately. LABORATORY DATA: White blood cell count 23.5, hematocrit 40, and platelet count 307. PH of 7.44, pCO2 of 30, pO2 of 57 on 60% oxygen. Sodium 134, potassium 4.5, chloride 100, CO2 of 26, BUN 28, creatinine 0.8, glucose 263. His x-ray shows a dense right lower lobe infiltrate. Lactic acid was 3.1. ASSESSMENT: 1. The patient is a 74-year-old presenting with a dense right lower lobe pneumonia. He has to be considered a healthcare acquired pneumonia given his recent hospitalizations and current chcf stay. Additionally, he has underlying chronic obstructive pulmonary disease and he has had a large stroke. 2. Right upper lobe pulmonary nodule-9 mm. PLAN: The patient and family have reaffirmed his DNAR. He has been put on BiPAP and seems to be stable on that. We will start him on broad-spectrum IV antibiotics. Additionally, I will add steroids and breathing treatments. His prognosis remains very poor. Job ID: [id number]
--- NOTE | 2019-10-23 16:51 | HP ---
PRIMARY CARE PROVIDER: Dr. Rhonda Hernandez. CHIEF COMPLAINT: Shortness of breath. HISTORY OF PRESENT ILLNESS: Mr. Carmona is a 74-year-old gentleman, who was seen at [facility] on October 23, 2019. He was hospitalized at this facility from August 18 to September 04, 2019. During that hospitalization, he was diagnosed with acute cerebrovascular accident. He also had PEG tube placed during that hospitalization. He was subsequently discharged to [facility]. From there, he was subsequently discharged to a facility in [place]. More recently, he was discharged to [facility]. Please note that the patient is unable to provide any history. Collateral history was obtained from review of medical records and discussion with his daughter by bedside as well as discussion with emergency room physician. The patient was found to be short of breath and hypoxic at the half-way over the last day or so. He also reportedly had fever. The patient also has sacral ulcer, which reportedly started in the [place] [facility]. The patient was brought to the emergency room. In the emergency room, he was diagnosed with bilateral pneumonia. He was hypoxic and was initially treated with high-flow oxygen, but continued to be hypoxic. He is currently on BiPAP machine. He is being admitted to [facility] for further management. REVIEW OF SYSTEMS: Could not be completed secondary to the patient's nonverbal status. PAST MEDICAL HISTORY: Acute ischemic cerebrovascular accident; pulmonary nodule ; skin lesion on right side of chin; oropharyngeal dysphagia, status post PEG tube placement; cholelithiasis; aspiration pneumonia; MSSA in sputum culture. PAST SURGICAL HISTORY: EGD, PEG tube placement, remote history of back surgery. FAMILY HISTORY: Colon and lung cancer in mother, colon cancer in sister. SOCIAL HISTORY: The patient is an ex-smoker. No history of alcohol use or recreational drug use. CODE STATUS: I discussed his code status. He is DNAR. ALLERGIES: NONE. CURRENT MEDICATIONS: 1. Levaquin 500 mg per PEG tube. 2. Metoprolol tartrate 25 mg per tube every 12 hours. 3. Polyethylene glycol 17 g per PEG tube daily. 4. Lantus insulin 18 units subcutaneously every 6 hours. 5. Glimepiride 4 mg per PEG tube once daily. 6. Famotidine 20 mg per tube every 12 hours. 7. DuoNeb p.r.n. 8. Aspirin 325 mg per tube daily. 9. Atorvastatin 40 mg per tube two times a day. 10. Vitamin B12 of 1000 mcg subcutaneously every Sunday. 11. Vitamin D3 of 5000 units per tube daily. 12. Enteral vancomycin 250 mg per tube three times a day for what appears to be upper respiratory tract infection. 13. Tramadol 50 mg three times a day. 14. Tamsulosin 0.4 mg daily. PHYSICAL EXAMINATION: GENERAL: On examination, Mr. Carmona is awake, alert, nonverbal. VITAL SIGNS: Blood pressure is 113/71, pulse 108, respiratory rate 35, and oxygen saturation 98%. He is currently on BiPAP. He is afebrile. EYES: No scleral icterus. No conjunctival pallor. ENT: Dry mucosal membranes. No oropharyngeal erythema or exudates. NECK: Supple, nontender. Trachea midline. RESPIRATORY: Accessory muscles of breathing are active. Chest wall movements are symmetric bilaterally. Lung examination reveals bibasilar crackles. CARDIOVASCULAR: S1 and S2 are heard, regular. Peripheral pulses palpable. ABDOMEN: Soft, nontender. PEG tube present. NEUROLOGIC: Full neurologic examination not possible secondary to the patient's noncooperation. Left-sided weakness present. MUSCULOSKELETAL: Left-sided weakness. SKIN: Lesion over the right side of his chin, sacral wound as documented. LYMPHATIC: No cervical lymphadenopathy. PSYCHIATRIC: Unable to assess mood, affect, or orientation to person, place, or time. LABORATORY DATA AND IMAGING STUDIES: Mr. Carmona's labs and investigations were reviewed. I reviewed his electrocardiogram, which shows sinus tachycardia, no ST changes to suggest an acute coronary syndrome. I also reviewed his chest x-ray, which shows bibasilar infiltrates. He has leukocytosis with 23,500 white cells , of which 78% are neutrophils, normocytic anemia with hemoglobin 12.7, normal platelet count, decreased sodium of 134, normal potassium, elevated blood urea nitrogen of 28, normal creatinine, lactic acid is elevated at 3.1, subsequently worsening to 5.3, normal total bilirubin, elevated AST of 47, normal ALT, elevated alkaline phosphatase of 459. Troponin-I negative x2, normal BNP, and decreased albumin of 2.6. Urinalysis is negative for nitrite, positive for leukocyte esterase. ASSESSMENT AND PLAN: Mr. Carmona is a pleasant 74-year-old gentleman, who was seen at [facility] on October 23, 2019. His problem list includes: 1. Sepsis: Mr. Carmona is presenting with sepsis secondary to pneumonia. He will be admitted to the hospital for further management. 2. Pneumonia: The patient will be treated with vancomycin and Zosyn in the IMCU. He is currently on BiPAP, and BiPAP therapy will be continued. Pulmonology Service will be consulted for opinion and help with management. 3. Diabetes mellitus type 2: I will start him on Accu-Cheks and insulin sliding scale. 4. Dyslipidemia: Continue statin. 5. History of stroke: Continue aspirin and statin. Plan of care was discussed with the patient's daughter by bedside, she expresses understanding. Many thanks for allowing me to participate in your patient's care. Please feel free to contact me with any questions or concerns. LEVEL OF RISK: High. LEVEL OF COMPLEXITY: High. Job ID: [id number] [email or web address]
[2019-10-23] MEDS: Sodium Chloride 0.9% 1,000 ML IV SCH (18:20)
[2019-10-23] MEDS: Piperacillin/Tazobactam 3.375 GM in Sodium Chloride 0.9% 100 ML IVPB SCH ×2 (18:21→23:27)
[2019-10-23] MEDS: methylPREDNISolone Sod Succ 40 MG VIAL IVP SCH ×2 (18:21→23:27)
[2019-10-23 18:25] VITALS: BMI 24.5
[2019-10-23] MEDS ORDERED: Ondansetron PF 4 MG/2 ML Vial IVP PRN (18:39)
[2019-10-23] MEDS ORDERED: Ondansetron ODT 4 MG TAB SL PRN (18:39)
[2019-10-23 18:58] LABS: Troponin I Less than 0.010 ng/mL (< 0.028)
[2019-10-23] MEDS: Atorvastatin Calcium 40 MG TAB PER TUBE SCH (23:26)
[2019-10-24] MEDS: Vancomycin HCl 1.25 GM in Sodium Chloride 0.9% 250 ML 250 ML IVPB SCH ×2 (02:45→11:51)
[2019-10-24 03:58] LABS: Anion Gap 17 mmol/L (10-20); BUN (Urea Nitrogen) 24 mg/dL (8.4-25.7); Calc. Creatinine Clearance 117 mL/min (70-130); Carbon Dioxide 16 mmol/L (23-31); Chloride 109 mmol/L (98-107); Estimated GFR-MDRD Greater than 90; Glucose 229 mg/dL (83-110); Potassium 4.5 mmol/L (3.5-5.1); Sodium 137 mmol/L (136-145)
[2019-10-24] MEDS: Piperacillin/Tazobactam 3.375 GM in Sodium Chloride 0.9% 100 ML IVPB SCH ×3 (05:27→17:09)
[2019-10-24] MEDS: methylPREDNISolone Sod Succ 40 MG VIAL IVP SCH ×3 (05:27→17:10)
[2019-10-24] MEDS: Sodium Chloride 0.9% 1,000 ML IV SCH ×2 (05:28→15:12)
[2019-10-24 06:27] LABS: #Lymphocytes 1.3 thou/uL (1.20-3.40); #Monocytes 0.8 thou/uL (0.11-0.59); #Neutrophils 13.5 thou/uL (1.40-6.50); %Basophils 0.2 % (0.0-1.0); %Eosinophils 0.1 % (0.0-10.0); %Lymphocytes 8.6 % (21.0-51.0); %Monocytes 4.8 % (0.0-10.0); %Neutrophils 86.3 % (42.0-75.0); Hemoglobin 11.1 g/dL (14.0-18.0); Mean Corpuscular HGB CONC 30.9 g/dL (32.0-36.0); Mean Corpuscular Hemoglobin 28.8 pg (27.0-31.0); Mean Corpuscular Volume 93.3 fL (78.0-98.0); Mean Platelet Volume 10.5 fL (7.4-10.4); Platelet Count 215 thou/uL (130-400); Red Blood Cell (RBC) Count 3.85 mill/uL (4.70-6.10); White Blood Cell (WBC) Count 15.6 thou/uL (4.8-10.8)
--- NOTE | 2019-10-24 08:13 | RAD ---
SINGLE VIEW OF THE CHEST: COMPARISON: 10/23/2019. HISTORY: Pneumonia. FINDINGS: A single view of the chest shows a cardiomediastinal silhouette which is upper limits of normal in si ze. There is an opacity in the right lung base which is improving and likely represents improving pn eumonia. There may be atelectasis in the left lung base. IMPRESSION: Improving right lower lobe pneumonia. POS: CET
[2019-10-24] MEDS ORDERED: Prevnar 13-Val Conj/PF 0.5 ML SYRINGE IM ONE (09:00)
[2019-10-24] MEDS ORDERED: FLU VACC TS2019-20(65YR UP)/PF 180 MCG/0.5 ML SYRINGE IM ONE (09:00)
[2019-10-24] MEDS ORDERED: Cepastat Lozenges 1 LOZ PO PRN (09:41)
[2019-10-24] MEDS ORDERED: Sodium Chloride 0.65% Nasal 44 ML BOT EA NARE PRN (09:41)
[2019-10-24] MEDS ORDERED: Loperamide HCl 2 MG CAP PO PRN (09:41)
[2019-10-24] MEDS ORDERED: Senokot S 8.6-50 MG TAB PO PRN (09:41)
[2019-10-24] MEDS ORDERED: Artificial Tears 18 DROP/0.9 ML EA EYE PRN (09:41)
[2019-10-24] MEDS ORDERED: hydrALAZINE 20 MG/ML VIAL SLOW IVP PRN (09:41)
[2019-10-24] MEDS ORDERED: Bisacodyl 10 MG SUPP PR PRN (09:41)
[2019-10-24] MEDS: Enoxaparin Sodium 40 MG/0.4 ML SYRINGE SC SCH (11:03)
[2019-10-24] MEDS: Aspirin 325 MG TAB PER TUBE SCH (11:03)
[2019-10-24] MEDS: Pantoprazole 40 MG VIAL IVP SCH (11:13)
--- NOTE | 2019-10-24 13:39 | PDOC.HOSPP ---
- Subjective Encounter Date: 10/24/19 Encounter Time: 11:00 Subjective: Patient seen and examined. pt is coughing. No overnight events - Objective Vital Signs & Weight: Vital Signs (12 hours) Temp Pulse Resp Pulse Ox 10/24/19 11:16 97.0 F L 10/24/19 10:52 66 24 H 97 10/24/19 08:00 95 10/24/19 07:54 94 L 10/24/19 07:51 60 26 H 94 L 10/24/19 07:26 96.2 F L 10/24/19 04:00 97.1 F L 10/24/19 02:16 76 20 96 Weight Weight 171 lb Most Recent Monitor Data Heart Rate from ECG 85 NIBP 94/54 NIBP BP-Mean 67 Respiration from ECG 27 SpO2 93 I&O: 10/23/19 10/24/19 10/25/19 06:59 06:59 06:59 Intake Total 1291 Output Total 1275 Balance 16 Result Diagrams: 10/24/19 05:43 10/24/19 03:35 Additional Labs: Accuchecks 10/24/19 10/24/19 10/24/19 10:43 06:58 00:04 POC Glucose 189 H 200 H 273 H Radiology Reviewed by me: Yes EKG Reviewed by me: Yes Hospitalist ROS - Review of Systems ROS unobtainable: due to mental status - Medication Medications: Active Medications Generic Name Dose Route Start Last Admin Trade Name Freq PRN Reason Stop Dose Admin Albuterol/Ipratropium 3 ml 10/23/19 18:30 10/24/19 10:52 Duoneb NEB 3 ml [id number] MIHIR Administration Aspirin 325 mg 10/24/19 09:00 10/24/19 11:03 Aspirin PER TUBE 325 mg DAILY MIHIR Administration Atorvastatin Calcium 40 mg 10/23/19 21:00 10/23/19 23:26 Lipitor PER TUBE 40 mg HS MIHIR Administration Cholecalciferol 5,000 units 10/24/19 09:00 10/24/19 11:02 Vitamin D3 PER TUBE 5,000 units DAILY MIHIR Administration Enoxaparin Sodium 40 mg 10/24/19 09:00 10/24/19 11:03 Lovenox SC 40 mg 0900 MIHIR Administration Sodium Chloride 1,000 mls @ 70 mls/hr 10/23/19 15:00 10/24/19 05:28 Normal Saline 0.9% IV 1,000 mls .[id number] MIHIR Administration Piperacillin Sod/Tazobactam 100 mls @ 200 mls/hr 10/23/19 18:00 10/24/19 11: 08 Sod 3.375 gm/ Sodium Chloride IVPB 100 mls Q6HR MIHIR Administration Vancomycin HCl 1.25 gm/ Sodium 250 mls @ 166.667 mls/hr 10/24/19 01:00 11:51 Chloride IVPB 250 mls 0100,1300 MIIHR Administration Methylprednisolone Sodium Succinate 20 mg 10/23/19 18:00 10/24/19 11:04 Solu-Medrol IVP 20 mg Q6HR MIHIR Administration Pantoprazole Sodium 40 mg 10/24/19 09:00 10/24/19 11:13 Protonix IVP 40 mg DAILY MIHIR Administration - Exam General Appearance: NAD, ill appearing Eye: PERRL, anicteric sclera ENT: normocephalic atraumatic, no oropharyngeal lesions Neck: supple, symmetric, no JVD Heart: RRR, no murmur, no gallops, no rubs Respiratory: rales, wheezes Respiratory - other findings: right base rales Gastrointestinal: soft, non-tender, non-distended, normal bowel sounds Gastrointestinal - other findings: peg tube+ Extremities: no edema Skin - other findings: decubitus ulcer unsteagable Musculoskeletal: normal tone, generalized weakness, diffuse muscle atrophy Psychiatric: normal affect Hosp A/P (1) Healthcare associated bacterial pneumonia Code(s): J15.9 - UNSPECIFIED BACTERIAL PNEUMONIA Status: Acute (2) Sepsis Code(s): A41.9 - SEPSIS, UNSPECIFIED ORGANISM Status: Acute Qualifiers: Sepsis type: sepsis due to unspecified organism Sepsis acute organ dysfunction status: with acute organ dysfunction Severe sepsis acute organ dysfunction type: acute respiratory failure Acute respiratory failure type: with hypoxia Severe sepsis shock status: without septic shock Qualified Code (s): A41.9 - Sepsis, unspecified organism; R65.20 - Severe sepsis without septic shock; J96.01 - Acute respiratory failure with hypoxia (3) H/O: CVA (cerebrovascular accident) Code(s): Z86.73 - PRSNL HX OF TIA (TIA), AND CEREB INFRC W/O RESID DEFICITS Status: Chronic (4) HTN (hypertension) Code(s): I10 - ESSENTIAL (PRIMARY) HYPERTENSION Status: Chronic Qualifiers: Hypertension type: essential hypertension Qualified Code(s): I10 - Essential (primary) hypertension (5) Oropharyngeal dysphagia Code(s): R13.12 - DYSPHAGIA, OROPHARYNGEAL PHASE Status: Chronic (6) Moderate protein-calorie malnutrition Code(s): E44.0 - MODERATE PROTEIN-CALORIE MALNUTRITION Status: Chronic (7) Lactic acidosis Code(s): E87.2 - ACIDOSIS Status: Acute (8) Decubitus ulcer of buttock, unstageable Code(s): L89.300 - PRESSURE ULCER OF UNSPECIFIED BUTTOCK, UNSTAGEABLE Status: Acute - Plan old records reviewed/req, plan discussed w/ family, continue antibiotics Consults: Palliative Care 10/24/19 continue vancomycin and zosyn surgery consult for unsteagble decubitus ulcer wound care start tube feeding at slow rate follow culture prognosis is poor medication reviewed and continue to provide symptomatic treatment and supportive care
--- NOTE | 2019-10-24 13:59 | PRG ---
DATE OF SERVICE: 10/24/2019 SERVICE: Pulmonary Medicine. INTERVAL HISTORY: The patient is doing fine from respiratory standpoint. Breathing comfortably. There have been no interval events overnight. Heart rate and blood pressure are firmed up very nicely. He has cleared his inflammatory profile. His urine output has picked up very nicely. Otherwise, he cannot provide much in the way of interval history. He remains encephalopathic. PHYSICAL EXAMINATION: VITAL SIGNS: Afebrile, pulse 85, blood pressure 94/54, respirations 27, and saturation 93% currently on 2 L nasal cannula. GENERAL: The patient is awake and alert, in no apparent distress. LUNGS: Decent air entry. No prolonged expiratory phase or wheezing is appreciated. HEART: Normal rate. Regular. ABDOMEN: Soft, nontender, and nondistended. Bowel sounds are positive. MUSCULOSKELETAL: No cyanosis or clubbing. There is no pitting edema or tenting present. LABORATORY DATA: WBC 15.3, hemoglobin 11.1, platelets 215,000. Basic metabolic profile is otherwise unremarkable. Calcium 8.0. Blood sugar ranges from 189 to 273. Troponin is negative and lactate was 5.3. Urinalysis is positive for significant red blood cells and white blood cells. There is only 1+ bacteria, and leukocyte esterase is low, and nitrites are negative. Blood cultures are growing coag-negative Staph in 1/2. Influenza A and B are negative, urine cultures negative at 24 hours. IMAGING: Chest x-ray demonstrates improving right lower lobe pneumonia. There is likely a layering effusion on the left. Fluid is in the fissure. ASSESSMENT: 1. Acute hypoxic respiratory failure. 2. Healthcare-associated pneumonia of the right lower lobe. 3. Right upper lobe pulmonary nodule. 4. History of stroke with significant debility. 5. Chronic obstructive pulmonary disease. 6. Oropharyngeal dysphagia, status post PEG tube placement. DISCUSSION AND PLAN: The patient has made very little neurologic recovery over the past month and a half. As such, he is unlikely to make a meaningful neurologic recovery. Palliative Care consultation will be placed. At this point, we talked to the patient's daughter about whether or not to pursue a CT of the chest at some point in future for the previously noted pulmonary nodule. Given his significant debility, the patient's daughter is suggesting at this point would not be in keeping with his wishes to continue following that pulmonary nodule. As such, follow up in my clinic, and that pulmonary nodule will be discontinued. We will continue nebulized therapy three times daily and on a p.r.n. basis. From my perspective, he is stable for transition to the floor. Pulmonary will continue to follow for the time being. Repeat chest x-ray would be reasonable in 2 to 4 weeks in the outpatient setting to make certain the infiltrate continues to clear. I will be mindful of his volume status along the way. Job ID: [id number]
[2019-10-24] MEDS: HumaLOG 300 UNITS/3 ML VIAL SC PRN (20:51)
[2019-10-24] MEDS: Atorvastatin Calcium 40 MG TAB PER TUBE SCH (22:33)
[2019-10-25] MEDS: Piperacillin/Tazobactam 3.375 GM in Sodium Chloride 0.9% 100 ML IVPB SCH ×4 (00:09→17:35)
[2019-10-25] MEDS: methylPREDNISolone Sod Succ 40 MG VIAL IVP SCH ×4 (00:09→17:35)
[2019-10-25] MEDS: Sodium Chloride 0.9% 1,000 ML IV SCH (02:07)
[2019-10-25] MEDS: Vancomycin HCl 1.25 GM in Sodium Chloride 0.9% 250 ML 250 ML IVPB SCH ×2 (02:15→14:40)
[2019-10-25 06:02] LABS: Lactic Acid 2.7 mmol/L (0.5-2.2)
[2019-10-25 06:06] LABS: Anion Gap 12 mmol/L (10-20); BUN (Urea Nitrogen) 24 mg/dL (8.4-25.7); Calc. Creatinine Clearance 119 mL/min (70-130); Calcium 8.2 mg/dL (7.8-10.44); Carbon Dioxide 20 mmol/L (23-31); Chloride 112 mmol/L (98-107); Estimated GFR-MDRD Greater than 90; Glucose 192 mg/dL (83-110); Potassium 4.1 mmol/L (3.5-5.1); Sodium 140 mmol/L (136-145)
[2019-10-25 06:34] LABS: #Lymphocytes 1.5 thou/uL (1.20-3.40); #Monocytes 0.7 thou/uL (0.11-0.59); #Neutrophils 15.6 thou/uL (1.40-6.50); %Basophils 0.3 % (0.0-1.0); %Eosinophils 0.1 % (0.0-10.0); %Lymphocytes 8.3 % (21.0-51.0); %Monocytes 3.6 % (0.0-10.0); %Neutrophils 87.7 % (42.0-75.0); Hemoglobin 10.8 g/dL (14.0-18.0); Mean Corpuscular Hemoglobin 28.9 pg (27.0-31.0); Mean Corpuscular Volume 90.5 fL (78.0-98.0); Mean Platelet Volume 10.2 fL (7.4-10.4); Platelet Count 272 thou/uL (130-400); RBC Distribution Width 12.9 % (11.5-14.5); Red Blood Cell (RBC) Count 3.72 mill/uL (4.70-6.10); White Blood Cell (WBC) Count 17.7 thou/uL (4.8-10.8)
[2019-10-25] MEDS: Enoxaparin Sodium 40 MG/0.4 ML SYRINGE SC SCH (07:56)
[2019-10-25] MEDS: Pantoprazole 40 MG VIAL IVP SCH (07:57)
[2019-10-25] MEDS: Aspirin 325 MG TAB PER TUBE SCH (07:59)
--- NOTE | 2019-10-25 10:42 | PDOC.HOSPP ---
- Subjective Encounter Date: 10/25/19 Encounter Time: 09:45 Subjective: Patient seen and examined. No new complaints. No overnight events - Objective Vital Signs & Weight: Vital Signs (12 hours) Temp Pulse Resp BP BP Pulse Ox 10/25/19 08:00 96 10/25/19 07:50 97.4 F L 71 18 143/70 H 96 10/25/19 06:36 80 26 H 96 10/25/19 04:24 92 L 10/25/19 04:00 97.8 F 62 20 107/61 98 10/25/19 02:00 80 32 H 119/66 92 L 10/25/19 00:00 97.8 F 89 20 91/47 L 97 Weight Admit Weight 171 lb Weight 171 lb Most Recent Monitor Data Heart Rate from ECG 83 NIBP 102/46 NIBP BP-Mean 64 Respiration from ECG 17 SpO2 98 I&O: 10/24/19 10/25/19 10/26/19 06:59 06:59 06:59 Intake Total 1291 1905 1012 Output Total 1275 300 475 Balance 16 1605 537 Result Diagrams: 10/25/19 05:18 10/25/19 05:18 Additional Labs: Accuchecks 10/25/19 10/24/19 10/24/19 05:12 20:27 17:10 POC Glucose 201 H 249 H 177 H 10/24/19 10:43 POC Glucose 189 H Hospitalist ROS - Review of Systems ROS unobtainable: due to mental status - Medication Medications: Active Medications Generic Name Dose Route Start Last Admin Trade Name Freq PRN Reason Stop Dose Admin Albuterol/Ipratropium 3 ml 10/24/19 18:30 10/25/19 06:36 Duoneb NEB 3 ml TID-RT MIHIR Administration Aspirin 325 mg 10/24/19 09:00 10/25/19 07:59 Aspirin PER TUBE 325 mg DAILY MIHIR Administration Atorvastatin Calcium 40 mg 10/23/19 21:00 10/24/19 22:33 Lipitor PER TUBE 40 mg HS MIHIR Administration Cholecalciferol 5,000 units 10/24/19 09:00 10/25/19 07:59 Vitamin D3 PER TUBE 5,000 units DAILY MIHIR Administration Enoxaparin Sodium 40 mg 10/24/19 09:00 10/25/19 07:56 Lovenox SC 40 mg 0900 MIHIR Administration Piperacillin Sod/Tazobactam 100 mls @ 200 mls/hr 10/23/19 18:00 10/25/19 07: 14 Sod 3.375 gm/ Sodium Chloride IVPB 100 mls Q6HR MIHIR Administration Vancomycin HCl 1.25 gm/ Sodium 250 mls @ 166.667 mls/hr 10/24/19 01:00 02:15 Chloride IVPB 250 mls 0100,1300 MIHIR Administration Sodium Chloride 1,000 mls @ 50 mls/hr 10/24/19 13:41 10/25/19 02:07 Normal Saline 0.9% IV 1,000 mls .Q20H MIHIR Administration Insulin Human Lispro 0 units 10/23/19 15:44 10/24/19 20:51 Humalog SC 4 unit .MILD SLIDING SCALE PRN Administration Mild Correctional Scale Methylprednisolone Sodium Succinate 20 mg 10/23/19 18:00 10/25/19 07:14 Solu-Medrol IVP 20 mg Q6HR MIHIR Administration Pantoprazole Sodium 40 mg 10/24/19 09:00 10/25/19 07:57 Protonix IVP 40 mg DAILY MIHIR Administration - Exam General Appearance: NAD, awake alert Eye: PERRL, anicteric sclera ENT: normocephalic atraumatic, no oropharyngeal lesions Neck: supple, symmetric, no JVD Heart: RRR, no murmur, no gallops, no rubs Respiratory: CTAB, no wheezes, no rales, no ronchi Gastrointestinal: soft, non-tender, non-distended Extremities: no cyanosis, no clubbing Skin: normal turgor, no lesions Neurological: no focal deficits Musculoskeletal: normal tone, normal strength Psychiatric: normal affect Hosp A/P (1) Healthcare associated bacterial pneumonia Code(s): J15.9 - UNSPECIFIED BACTERIAL PNEUMONIA Status: Acute (2) Sepsis Code(s): A41.9 - SEPSIS, UNSPECIFIED ORGANISM Status: Acute Qualifiers: Sepsis type: sepsis due to unspecified organism Sepsis acute organ dysfunction status: with acute organ dysfunction Severe sepsis acute organ dysfunction type: acute respiratory failure Acute respiratory failure type: with hypoxia Severe sepsis shock status: without septic shock Qualified Code (s): A41.9 - Sepsis, unspecified organism; R65.20 - Severe sepsis without septic shock; J96.01 - Acute respiratory failure with hypoxia (3) H/O: CVA (cerebrovascular accident) Code(s): Z86.73 - PRSNL HX OF TIA (TIA), AND CEREB INFRC W/O RESID DEFICITS Status: Chronic (4) HTN (hypertension) Code(s): I10 - ESSENTIAL (PRIMARY) HYPERTENSION Status: Chronic Qualifiers: Hypertension type: essential hypertension Qualified Code(s): I10 - Essential (primary) hypertension (5) Oropharyngeal dysphagia Code(s): R13.12 - DYSPHAGIA, OROPHARYNGEAL PHASE Status: Chronic (6) Moderate protein-calorie malnutrition Code(s): E44.0 - MODERATE PROTEIN-CALORIE MALNUTRITION Status: Chronic (7) Lactic acidosis Code(s): E87.2 - ACIDOSIS Status: Acute (8) Decubitus ulcer of buttock, unstageable Code(s): L89.300 - PRESSURE ULCER OF UNSPECIFIED BUTTOCK, UNSTAGEABLE Status: Acute - Plan old records reviewed/req, continue antibiotics 10/24/19 continue vancomycin and zosyn surgery consult for unsteagble decubitus ulcer wound care start tube feeding at slow rate follow culture prognosis is poor medication reviewed and continue to provide symptomatic treatment and supportive care 10/25/19 continue current antibiotic wound care supportive care nutritional support
[2019-10-25 12:14] LABS: Vancomycin, Trough 14.3 ug/mL
[2019-10-25] MEDS: Vancomycin 1.5 GRAM/300 ML BAG 1.5 GM in Premix Bag 1 BAG IVPB SCH (14:10)
[2019-10-25] MEDS: HumaLOG 300 UNITS/3 ML VIAL SC PRN ×2 (15:54→21:41)
--- NOTE | 2019-10-25 17:11 | PDOC.GSCN ---
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 He was found to have pneumonia and was admitted to the hospitalist team for management. On further examination, he was noted to have a sacral ulcer. The patient seems to be aphasic and is unable to participate in the interview. The consultation is through discussion with nursing staff and review of the EMR. Surgery Consult: ROS - Review of Systems ROS unobtainable: due to mental status Surgery Consult: PMH Source: other Past Medical History: CVA, DM, HLD, BPH Past Surgical History: EGD, PEG, back surgery - Past Family History Family history: reviewed and not pertinent - Past Social History Smoking Status: Former smoker Alcohol Use: none Drug Use History: none Surgery Consult: Exam - Vital signs Vital signs: Vital Signs - Most Recent Temp Pulse Resp BP Pulse Ox 97.4 F L 69 24 H 143/70 H 96 10/25/19 07:50 10/25/19 12:21 10/25/19 12:21 10/25/19 07:50 10/25/19 12:21 - Physical Exam General: cachectic, chronically ill Eye: PERRL Neck: no lymphadectomy, no masses, no del distention Respiratory: clear to auscultation Abdomen: non tender, soft Integumentary: other (Moderate sacral decubitus ulcer without evidence of infection or abscess.) Neurologic: other (Chronic neurodeficits from stroke) Surgery Consult: Meds - Medications Medications: Current Medications Albuterol/Ipratropium (Duoneb) 3 ml NEB TID-RT [facility] Last Admin: 10/25/19 12:21 Dose: 3 ml Artificial Tears (Tears Naturale) 2 drop EA EYE PRN PRN PRN Reason: Dry Eyes Aspirin (Aspirin) 325 mg PER TUBE DAILY [facility] Last Admin: 10/25/19 07:59 Dose: 325 mg Atorvastatin Calcium (Lipitor) 40 mg PER TUBE HS [facility] Last Admin: 10/24/19 22:33 Dose: 40 mg Bisacodyl (Dulcolax) 10 mg [place] DAILYPRN PRN PRN Reason: Constipation Cholecalciferol (Vitamin D3) 5,000 units PER TUBE DAILY [facility] Last Admin: 10/25/19 07:59 Dose: 5,000 units Dextrose/Water (Dextrose 50%) 25 gm SLOW IVP PRN PRN PRN Reason: Hypoglycemia Enoxaparin Sodium (Lovenox) 40 mg SC 0900 [facility] Last Admin: 10/25/19 07:56 Dose: 40 mg Glucagon (Glucagon) 1 mg IM PRN PRN PRN Reason: Hypoglycemia Hydralazine HCl (Apresoline) 10 mg SLOW IVP Q4H PRN PRN Reason: SBP > 180 and HR < 70 Piperacillin Sod/Tazobactam (Sod 3.375 gm/ Sodium Chloride) 100 mls @ 200 mls/ hr IVPB Q6HR [facility] Last Admin: 10/25/19 12:28 Dose: 100 mls Dextrose/Water (D5w) 1,000 mls @ 0 mls/hr IV .Q0M PRN PRN Reason: Hypoglycemia Sodium Chloride (Normal Saline 0.9%) 1,000 mls @ 50 mls/hr IV .Q20H [facility] Last Admin: 10/25/19 02:07 Dose: 1,000 mls Vancomycin HCl 1.5 gm/ Device 300 mls @ 200 mls/hr IVPB 0200,1400 [facility] Last Admin: 10/25/19 14:10 Dose: 300 mls Insulin Human Lispro (Humalog) 0 units SC .MILD SLIDING SCALE PRN PRN Reason: Mild Correctional Scale Last Admin: 10/25/19 15:54 Dose: 3 unit Loperamide HCl (Imodium) 2 mg PO PRN PRN PRN Reason: Diarrhea/Loose Stools Methylprednisolone Sodium Succinate (Solu-Medrol) 20 mg IVP Q6HR [facility] Last Admin: 10/25/19 12:29 Dose: 20 mg Miscellaneous Medication (Pharmacy To Dose) 1 each IVPB PRN PRN PRN Reason: Pharmacy to dose Pantoprazole Sodium (Protonix) 40 mg IVP DAILY [facility] Last Admin: 10/25/19 07:57 Dose: 40 mg Senna/Docusate Sodium (Senokot S) 2 tab PO BID PRN PRN Reason: Constipation Sodium Chloride (Normal Saline Pf) 10 ml FS PRN PRN PRN Reason: RECONSTITUTION Sodium Chloride ([place] 0.65%) 0 ml EA NARE QIDPRN PRN PRN Reason: Nasal Congestion Sterile Water (Bacteriostatic Water) 1 ml FS PRN PRN PRN Reason: RECONSTITUTION Throat Lozenges (Cepastat Lozenges) 1 topher PO Q2H PRN PRN Reason: Sore Throat Tramadol HCl (Ultram) 50 mg PER TUBE Q6H PRN PRN Reason: Pain - Allergies Allergies/Adverse Reactions: Allergies Allergy/AdvReac Type Severity Reaction Status Date / Time codeine Allergy Verified 08/20/19 10:52 Surgery Consult: Results - Labs Result Diagrams: 10/25/19 05:18 10/25/19 05:18 Lab results: Laboratory Results WBC 17.7 thou/uL (4.8-10.8) H 10/25/19 05:18 RBC 3.72 mill/uL (4.70-6.10) L 10/25/19 05:18 Hgb 10.8 g/dL (14.0-18.0) L 10/25/19 05:18 Hct 33.6 % (42.0-52.0) L 10/25/19 05:18 MCV 90.5 fL (78.0-98.0) 10/25/19 05:18 MCH 28.9 pg (27.0-31.0) 10/25/19 05:18 MCHC 32.0 g/dL (32.0-36.0) 10/25/19 05:18 RDW 12.9 % (11.5-14.5) 10/25/19 05:18 Plt Count 272 thou/uL (130-400) 10/25/19 05:18 MPV 10.2 fL (7.4-10.4) 10/25/19 05:18 Neutrophils % 87.7 % (42.0-75.0) H 10/25/19 05:18 Neutrophils % (Manual) 78 % (42-75) H 10/23/19 11:26 Band Neuts % (Manual) 7 % (5-11) 10/23/19 11:26 Lymphocytes % 8.3 % (21.0-51.0) L 10/25/19 05:18 Lymphocytes % (Manual) 9 % (21-51) L 10/23/19 11:26 Monocytes % 3.6 % (0.0-10.0) 10/25/19 05:18 Monocytes % (Manual) 6 % (0-10) 10/23/19 11:26 Eosinophils % 0.1 % (0.0-10.0) 10/25/19 05:18 Basophils % 0.3 % (0.0-1.0) 10/25/19 05:18 Neutrophils # 15.6 thou/uL (1.40-6.50) H 10/25/19 05:18 Lymphocytes # 1.5 thou/uL (1.20-3.40) 10/25/19 05:18 Monocytes # 0.7 thou/uL (0.11-0.59) H 10/25/19 05:18 Eosinophils # 0.0 thou/uL (0.0-0.7) 10/25/19 05:18 Basophils # 0.0 thou/uL (0.0-0.2) 10/25/19 05:18 Plt Morphology Comment Appears Adequate 10/23/19 11:26 RBC Morph Comment Normal 10/23/19 11:26 Specimen Type ARTERIAL 10/23/19 11:30 Puncture Site RRA 10/23/19 11:30 Bicarbonate Actual 19.9 mEq/L (22-28) L 10/23/19 11:30 ABG pH 7.44 (7.35-7.45) 10/23/19 11:30 ABG pCO2 30.1 mmHg (35.0-45.0) L 10/23/19 11:30 ABG pO2 57.6 mmHg (> 70.0) L* 10/23/19 11:30 ABG O2 Sat Calc/[place] 88.9 % (94.0-98.0) L 10/23/19 11:30 ABG O2 Content 14.3 vol% (18.0-21.0) L 10/23/19 11:30 ABG Base Excess -3.3 mEq/L (-2.0 to +3.0) L 10/23/19 11:30 ABG Hematocrit 34.0 % (42.0-52.0) L 10/23/19 11:30 ABG Hemoglobin 11.5 g/dL (14.0-18.0) L 10/23/19 11:30 ABG Oxyhemoglobin 88.2 % (94.0-98.0) L 10/23/19 11:30 ABG Carboxyhemoglobin 0.2 gm% (0.0-3.0) 10/23/19 11:30 ABG Methemoglobin 0.60 gm% (0.04-1.52) 10/23/19 11:30 ABG Deoxyhemoglobin 11.0 % (0.0-2.9) H 10/23/19 11:30 A-a O2 Gradient 332.575 (0-20) H 10/23/19 11:30 Sodium 130 mmol/L (135-148) L 10/23/19 11:30 Potassium 3.91 mmol/L (3.70-5.30) 10/23/19 11:30 Chloride 104 mmol/L (98-106) 10/23/19 11:30 Ionized Calcium 1.11 mmol/L (1.12-1.30) L 10/23/19 11:30 Mode of Support 60L 10/23/19 11:30 Inspired O2 60 % 10/23/19 11:30 Sodium 140 mmol/L (136-145) 10/25/19 05:18 Potassium 4.1 mmol/L (3.5-5.1) 10/25/19 05:18 Chloride 112 mmol/L (98-107) H 10/25/19 05:18 Carbon Dioxide 20 mmol/L (23-31) L 10/25/19 05:18 Anion Gap 12 mmol/L (10-20) 10/25/19 05:18 BUN 24 mg/dL (8.4-25.7) 10/25/19 05:18 Creatinine 0.59 mg/dL (0.7-1.3) L 10/25/19 05:18 Estimated GFR (MDRD) Greater than 90 10/25/19 05:18 Glucose 192 mg/dL (83-110) H 10/25/19 05:18 POC Glucose 237 mg/dL (70-110) H 10/25/19 15:47 Lactic Acid 2.7 mmol/L (0.5-2.2) H 10/25/19 05:18 Calcium 8.2 mg/dL (7.8-10.44) 10/25/19 05:18 Total Bilirubin 0.7 mg/dL (0.2-1.2) 10/23/19 11:26 AST 47 U/L (5-34) H 10/23/19 11:26 ALT 40 U/L (8-55) 10/23/19 11:26 Alkaline Phosphatase 459 U/L (40-110) H 10/23/19 11:26 Troponin I Less than 0.010 ng/mL (< 0.028) 10/23/19 18:16 B-Natriuretic Peptide 47.5 pg/mL (0-100) 10/23/19 11:26 Serum Total Protein 6.3 g/dL (5.8-8.1) 10/23/19 11:26 Albumin 2.6 g/dL (3.4-4.8) L 10/23/19 11:26 Globulin 3.7 g/dL (2.4-3.5) H 10/23/19 11:26 Albumin/Globulin Ratio 0.7 g/dL (1.2-2.2) L 10/23/19 11:26 Urine Color Yellow (Yellow) 10/23/19 11:25 Urine Clarity Turbid (Clear) A 10/23/19 11:25 Urine pH 5.0 (5.0-9.0) 10/23/19 11:25 Ur Specific [place] 1.024 (1.002-1.036) 10/23/19 11:25 Urine Protein 30 mg/dL (Neg-Trace) A 10/23/19 11:25 Urine Glucose (UA) Normal mg/dL (Negative) 10/23/19 11:25 Urine Ketones Negative mg/dL (Negative) 10/23/19 11:25 Urine Blood 3+ (Negative) A 10/23/19 11:25 Urine Nitrite Negative (Negative) 10/23/19 11:25 Urine Bilirubin Negative (Negative) 10/23/19 11:25 Urine Urobilinogen Normal mg/dL (Less than 2) 10/23/19 11:25 Ur Leukocyte Esterase 25 [place]/uL (Negative) 10/23/19 11:25 Urine RBC Greater than 50 HPF (0-3) A 10/23/19 11:25 Urine WBC 21-50 HPF (0-3) A 10/23/19 11:25 Ur Squamous Epith Cells None Seen HPF (0-3) 10/23/19 11:25 Urine Bacteria 1+ HPF (None Seen) A 10/23/19 11:25 Vancomycin Trough 14.3 ug/mL 10/25/19 11:53 Surgery Consult: A/P - Problem (1) Decubitus ulcer of buttock, unstageable Current Visit: Yes Code(s): L89.300 - PRESSURE ULCER OF UNSPECIFIED BUTTOCK, UNSTAGEABLE Status: Acute - Plan Plan: No surgical intervention indicated. Recommend wound care consultation for dressing recommendations. Would likely benefit from mild sharp debridement at bedside with continued management with enzymatic debridement. Frequent turning and offloading. Will follow peripherally, please call for further questions.
--- NOTE | 2019-10-25 19:56 | PRG ---
DATE OF SERVICE: 10/25/2019 SERVICE: Pulmonary Medicine. INTERVAL HISTORY: The patient is doing okay from a respiratory standpoint. He looks less toxic today. He is breathing comfortable. There has been no interval change to his condition otherwise. He cannot provide any additional elements of the history. PHYSICAL EXAMINATION: VITAL SIGNS: Afebrile, pulse 71, blood pressure 143/70, respirations 18, and saturation 96% on 4 L nasal cannula. GENERAL: The patient is awake and alert, in no apparent distress. LUNGS: Wonderful air entry without any prolonged expiratory phase. I do not appreciate any rhonchi today. HEART: Normal rate and regular. ABDOMEN: Soft, nontender, and nondistended. Bowel sounds are positive. MUSCULOSKELETAL: No cyanosis or clubbing. No pitting in the bilateral lower extremities. LABORATORY DATA: WBC 17.7, hemoglobin 10.8, and platelets 272,000. Basic metabolic profile is otherwise unremarkable. Urinalysis is negative. ASSESSMENT: 1. Acute hypoxic respiratory failure, resolving. 2. Healthcare-associated pneumonia of the right lower lobe. 3. Right upper lobe pulmonary nodule. 4. History of stroke with significant debility. 5. Chronic obstructive pulmonary disease, status post acute exacerbation. 6. Oropharyngeal dysphagia, status post PEG tube placement. DISCUSSION AND PLAN: Supportive care including antibiotics will be continued. At this point, Pulmonary will follow intermittently during this hospital stay. We will continue our discussions moving forward about end of life care and goals of care. He is 2 months out from his recent stroke. To me, the likelihood of a meaningful recovery as the patient's family and the patient himself would define it is essentially non-existent at this point. Should aggressive care be pursued moving forward, repeat chest x-ray in 2 to 4 weeks in the outpatient setting would be reasonable. We will need to elevate head of bed and be good about trying to keep his head of bed quite high for at least 2 hours after intermittent feeds. Job ID: [id number]
[2019-10-25] MEDS: Atorvastatin Calcium 40 MG TAB PER TUBE SCH (21:23)
[2019-10-26] MEDS: Piperacillin/Tazobactam 3.375 GM in Sodium Chloride 0.9% 100 ML IVPB SCH ×4 (00:25→17:21)
[2019-10-26] MEDS: methylPREDNISolone Sod Succ 40 MG VIAL IVP SCH ×3 (00:26→17:21)
[2019-10-26] MEDS: Vancomycin 1.5 GRAM/300 ML BAG 1.5 GM in Premix Bag 1 BAG IVPB SCH ×2 (02:47→14:58)
[2019-10-26] MEDS: Sodium Chloride 0.9% 1,000 ML IV SCH (05:50)
[2019-10-26] MEDS: HumaLOG 300 UNITS/3 ML VIAL SC PRN ×3 (06:37→17:25)
[2019-10-26 06:49] LABS: Anion Gap 14 mmol/L (10-20); BUN (Urea Nitrogen) 23 mg/dL (8.4-25.7); Calc. Creatinine Clearance 123 mL/min (70-130); Calcium 8.1 mg/dL (7.8-10.44); Carbon Dioxide 20 mmol/L (23-31); Chloride 113 mmol/L (98-107); Estimated GFR-MDRD Greater than 90; Glucose 200 mg/dL (83-110); Potassium 4.4 mmol/L (3.5-5.1); Sodium 143 mmol/L (136-145)
[2019-10-26 06:52] LABS: #Lymphocytes 1.3 thou/uL (1.20-3.40); #Monocytes 0.6 thou/uL (0.11-0.59); #Neutrophils 9.8 thou/uL (1.40-6.50); %Basophils 0.1 % (0.0-1.0); %Eosinophils 0.1 % (0.0-10.0); %Lymphocytes 11.2 % (21.0-51.0); %Monocytes 5.4 % (0.0-10.0); %Neutrophils 83.2 % (42.0-75.0); Hemoglobin 9.8 g/dL (14.0-18.0); Mean Corpuscular HGB CONC 29.7 g/dL (32.0-36.0); Mean Corpuscular Volume 90.8 fL (78.0-98.0); Platelet Count 251 thou/uL (130-400); RBC Distribution Width 12.9 % (11.5-14.5); Red Blood Cell (RBC) Count 3.65 mill/uL (4.70-6.10); White Blood Cell (WBC) Count 11.7 thou/uL (4.8-10.8)
[2019-10-26] MEDS: Aspirin 325 MG TAB PER TUBE SCH (09:15)
[2019-10-26] MEDS: Enoxaparin Sodium 40 MG/0.4 ML SYRINGE SC SCH (09:16)
[2019-10-26] MEDS: Pantoprazole 40 MG VIAL IVP SCH (09:16)
[2019-10-26] MEDS ORDERED: Senokot S 8.6-50 MG TAB PER TUBE PRN (09:18)
[2019-10-26] MEDS ORDERED: Diabetic Tussin 200 MG/10 ML UDCUP PER TUBE PRN (09:18)
[2019-10-26] MEDS ORDERED: Ondansetron PF 4 MG/2 ML Vial IVP PRN (09:18)
[2019-10-26] MEDS ORDERED: Loperamide HCl 2 MG CAP PER TUBE PRN (09:18)
[2019-10-26] MEDS ORDERED: Calcium Carbonate 500 MG ChewTAB PER TUBE PRN (09:18)
[2019-10-26] MEDS ORDERED: Acetaminophen 500 MG TAB PER TUBE PRN (09:18)
[2019-10-26] MEDS ORDERED: methylPREDNISolone Sod Succ 40 MG VIAL IVP SCH (09:30)
[2019-10-26] MEDS ORDERED: Bacteriostatic Water 30 ML VIAL FS PRN (09:41)
--- NOTE | 2019-10-26 14:30 | PDOC.HOSPP ---
- Subjective Encounter Date: 10/26/19 Encounter Time: 10:00 Subjective: Patient seen and examined. No overnight events - Objective Vital Signs & Weight: Vital Signs (12 hours) Temp Pulse Resp BP Pulse Ox 10/26/19 13:47 90 18 10/26/19 09:15 93 L 10/26/19 07:32 98.4 F 91 16 145/68 H 93 L 10/26/19 06:47 76 16 Weight Admit Weight 171 lb Weight 171 lb Most Recent Monitor Data Heart Rate from ECG 83 NIBP 102/46 NIBP BP-Mean 64 Respiration from ECG 17 SpO2 98 I&O: 10/25/19 10/26/19 10/27/19 06:59 06:59 06:59 Intake Total 1905 1904 297 Output Total 300 1625 Balance 1605 279 297 Result Diagrams: 10/26/19 06:02 10/26/19 06:02 Additional Labs: Accuchecks 10/26/19 10/26/19 10/25/19 12:18 05:48 20:16 POC Glucose 231 H 212 H 201 H 10/25/19 15:47 POC Glucose 237 H Hospitalist ROS - Review of Systems ROS unobtainable: due to mental status - Medication Medications: Active Medications Generic Name Dose Route Start Last Admin Trade Name Freq PRN Reason Stop Dose Admin Albuterol/Ipratropium 3 ml 10/24/19 18:30 10/26/19 13:47 Duoneb NEB 3 ml TID-RT [facility] Administration Aspirin 325 mg 10/24/19 09:00 10/26/19 09:15 Aspirin PER TUBE 325 mg DAILY [facility] Administration Atorvastatin Calcium 40 mg 10/23/19 21:00 10/25/19 21:23 Lipitor PER TUBE 40 mg HS [facility] Administration Cholecalciferol 5,000 units 10/24/19 09:00 10/26/19 09:15 Vitamin D3 PER TUBE 5,000 units DAILY [facility] Administration Enoxaparin Sodium 40 mg 10/24/19 09:00 10/26/19 09:16 Lovenox SC 40 mg 0900 [facility] Administration Piperacillin Sod/Tazobactam 100 mls @ 200 mls/hr 10/23/19 18:00 10/26/19 11: 20 Sod 3.375 gm/ Sodium Chloride IVPB 100 mls Q6HR [facility] Administration Sodium Chloride 1,000 mls @ 50 mls/hr 10/24/19 13:41 10/26/19 05:50 Normal Saline 0.9% IV 1,000 mls .Q20H [facility] Administration Vancomycin HCl 1.5 gm/ Device 300 mls @ 200 mls/hr 10/25/19 14:00 10/26/19 02 :47 IVPB 300 mls 0200,1400 [facility] Administration Insulin Human Lispro 0 units 10/23/19 15:44 10/26/19 12:18 Humalog SC 3 unit .MILD SLIDING SCALE PRN Administration Mild Correctional Scale Pantoprazole Sodium 40 mg 10/24/19 09:00 10/26/19 09:16 Protonix IVP 40 mg DAILY [facility] Administration - Exam General Appearance: NAD, awake alert Eye: PERRL, anicteric sclera ENT: normocephalic atraumatic, no oropharyngeal lesions, dry oral mucosa Neck: supple, symmetric, no JVD, no thyromegaly Heart: RRR, no murmur, no gallops, no rubs Respiratory: CTAB, no wheezes, no rales Gastrointestinal: soft, non-tender, non-distended, normal bowel sounds Extremities: no cyanosis, no clubbing Musculoskeletal: normal tone, normal strength Psychiatric: normal affect Hosp A/P (1) Healthcare associated bacterial pneumonia Code(s): J15.9 - UNSPECIFIED BACTERIAL PNEUMONIA Status: Acute (2) Sepsis Code(s): A41.9 - SEPSIS, UNSPECIFIED ORGANISM Status: Acute Qualifiers: Sepsis type: sepsis due to unspecified organism Sepsis acute organ dysfunction status: with acute organ dysfunction Severe sepsis acute organ dysfunction type: acute respiratory failure Acute respiratory failure type: with hypoxia Severe sepsis shock status: without septic shock Qualified Code (s): A41.9 - Sepsis, unspecified organism; R65.20 - Severe sepsis without septic shock; J96.01 - Acute respiratory failure with hypoxia (3) H/O: CVA (cerebrovascular accident) Code(s): Z86.73 - PRSNL HX OF TIA (TIA), AND CEREB INFRC W/O RESID DEFICITS Status: Chronic (4) HTN (hypertension) Code(s): I10 - ESSENTIAL (PRIMARY) HYPERTENSION Status: Chronic Qualifiers: Hypertension type: essential hypertension Qualified Code(s): I10 - Essential (primary) hypertension (5) Oropharyngeal dysphagia Code(s): R13.12 - DYSPHAGIA, OROPHARYNGEAL PHASE Status: Chronic (6) Moderate protein-calorie malnutrition Code(s): E44.0 - MODERATE PROTEIN-CALORIE MALNUTRITION Status: Chronic (7) Lactic acidosis Code(s): E87.2 - ACIDOSIS Status: Acute (8) Decubitus ulcer of buttock, unstageable Code(s): L89.300 - PRESSURE ULCER OF UNSPECIFIED BUTTOCK, UNSTAGEABLE Status: Acute - Plan old records reviewed/req, continue antibiotics 10/24/19 continue vancomycin and zosyn surgery consult for unsteagble decubitus ulcer wound care start tube feeding at slow rate follow culture prognosis is poor medication reviewed and continue to provide symptomatic treatment and supportive care 10/25/19 continue current antibiotic wound care supportive care nutritional support 10/26/19 continue antibiotics will need hospice to prevent readmission supportive care
[2019-10-26] MEDS: Atorvastatin Calcium 40 MG TAB PER TUBE SCH (21:00)
[2019-10-27] MEDS: Piperacillin/Tazobactam 3.375 GM in Sodium Chloride 0.9% 100 ML IVPB SCH ×5 (00:05→23:56)
[2019-10-27 01:28] LABS: Vancomycin, Trough 16.2 ug/mL
[2019-10-27] MEDS: Sodium Chloride 0.9% 1,000 ML IV SCH (02:43)
[2019-10-27] MEDS: Vancomycin 1.5 GRAM/300 ML BAG 1.5 GM in Premix Bag 1 BAG IVPB SCH ×2 (02:44→13:49)
[2019-10-27 06:07] LABS: #Eosinphils 0.1 thou/uL (0.0-0.7); #Lymphocytes 2.5 thou/uL (1.20-3.40); #Neutrophils 8.6 thou/uL (1.40-6.50); %Basophils 0.1 % (0.0-1.0); %Eosinophils 0.7 % (0.0-10.0); %Lymphocytes 20.4 % (21.0-51.0); %Neutrophils 70.8 % (42.0-75.0); Hemoglobin 10.2 g/dL (14.0-18.0); Mean Corpuscular HGB CONC 30.5 g/dL (32.0-36.0); Mean Corpuscular Hemoglobin 27.6 pg (27.0-31.0); Mean Corpuscular Volume 90.5 fL (78.0-98.0); Platelet Count 245 thou/uL (130-400); RBC Distribution Width 12.9 % (11.5-14.5); Red Blood Cell (RBC) Count 3.68 mill/uL (4.70-6.10); White Blood Cell (WBC) Count 12.2 thou/uL (4.8-10.8)
[2019-10-27] MEDS: methylPREDNISolone Sod Succ 40 MG VIAL IVP SCH ×2 (06:11→17:35)
[2019-10-27] MEDS: HumaLOG 300 UNITS/3 ML VIAL SC PRN ×3 (06:15→17:34)
[2019-10-27 06:21] LABS: Anion Gap 11 mmol/L (10-20); BUN (Urea Nitrogen) 24 mg/dL (8.4-25.7); Calc. Creatinine Clearance 123 mL/min (70-130); Calcium 8.1 mg/dL (7.8-10.44); Carbon Dioxide 21 mmol/L (23-31); Chloride 113 mmol/L (98-107); Estimated GFR-MDRD Greater than 90; Glucose 174 mg/dL (83-110); Potassium 4.4 mmol/L (3.5-5.1); Sodium 141 mmol/L (136-145)
[2019-10-27] MEDS: Pantoprazole 40 MG VIAL IVP SCH (08:57)
[2019-10-27] MEDS: Aspirin 325 MG TAB PER TUBE SCH (08:57)
[2019-10-27] MEDS: Enoxaparin Sodium 40 MG/0.4 ML SYRINGE SC SCH (08:57)
--- NOTE | 2019-10-27 11:11 | PDOC.HOSPP ---
- Subjective Encounter Date: 10/27/19 Encounter Time: 09:00 Subjective: Patient seen and examined. No new complaints. No overnight events - Objective Vital Signs & Weight: Vital Signs (12 hours) Temp Pulse Resp BP Pulse Ox 10/27/19 09:00 91 L 10/27/19 07:43 97.6 F 92 19 120/70 91 L 10/27/19 07:11 89 L 10/27/19 07:09 74 16 89 L Weight Admit Weight 171 lb Weight 171 lb Most Recent Monitor Data Heart Rate from ECG 83 NIBP 102/46 NIBP BP-Mean 64 Respiration from ECG 17 SpO2 98 I&O: 10/26/19 10/27/19 10/28/19 06:59 06:59 06:59 Intake Total 1904 2672 297 Output Total 1625 900 Balance 279 1772 297 Result Diagrams: 10/27/19 05:39 10/27/19 05:39 Additional Labs: Accuchecks 10/27/19 10/26/19 10/26/19 04:52 20:37 16:34 POC Glucose 197 H 190 H 174 H 10/26/19 12:18 POC Glucose 231 H Hospitalist ROS - Review of Systems ROS unobtainable: due to mental status - Medication Medications: Active Medications Generic Name Dose Route Start Last Admin Trade Name Freq PRN Reason Stop Dose Admin Albuterol/Ipratropium 3 ml 10/24/19 18:30 10/27/19 07:09 Duoneb NEB 3 ml TID-RT [facility] Administration Aspirin 325 mg 10/24/19 09:00 10/27/19 08:57 Aspirin PER TUBE 325 mg DAILY [facility] Administration Atorvastatin Calcium 40 mg 10/23/19 21:00 10/26/19 21:00 Lipitor PER TUBE 40 mg HS [facility] Administration Cholecalciferol 5,000 units 10/24/19 09:00 10/27/19 08:57 Vitamin D3 PER TUBE 5,000 units DAILY [facility] Administration Enoxaparin Sodium 40 mg 10/24/19 09:00 10/27/19 08:57 Lovenox SC 40 mg 0900 [facility] Administration Piperacillin Sod/Tazobactam 100 mls @ 200 mls/hr 10/23/19 18:00 10/27/19 06: 12 Sod 3.375 gm/ Sodium Chloride IVPB 100 mls Q6HR [facility] Administration Sodium Chloride 1,000 mls @ 50 mls/hr 10/24/19 13:41 10/27/19 02:43 Normal Saline 0.9% IV 1,000 mls .Q20H [facility] Administration Vancomycin HCl 1.5 gm/ Device 300 mls @ 200 mls/hr 10/25/19 14:00 10/27/19 02 :44 IVPB 300 mls 0200,1400 [facility] Administration Insulin Human Lispro 0 units 10/23/19 15:44 10/27/19 06:15 Humalog SC 2 unit .MILD SLIDING SCALE PRN Administration Mild Correctional Scale Methylprednisolone Sodium Succinate 20 mg 10/26/19 18:00 10/27/19 06:11 Solu-Medrol IVP 20 mg 0600,1800 [facility] Administration Pantoprazole Sodium 40 mg 10/24/19 09:00 10/27/19 08:57 Protonix IVP 40 mg DAILY [facility] Administration - Exam General Appearance: NAD, ill appearing Eye: PERRL, anicteric sclera ENT: normocephalic atraumatic, no oropharyngeal lesions, dry oral mucosa Neck: supple, symmetric, no JVD Heart: RRR, no murmur, no gallops Respiratory: no ronchi, rales Gastrointestinal: soft, non-tender, non-distended, normal bowel sounds Gastrointestinal - other findings: peg + Extremities: no edema Neurological: hemiplegia, speech deficit Hosp A/P (1) Healthcare associated bacterial pneumonia Code(s): J15.9 - UNSPECIFIED BACTERIAL PNEUMONIA Status: Acute (2) Sepsis Code(s): A41.9 - SEPSIS, UNSPECIFIED ORGANISM Status: Acute Qualifiers: Sepsis type: sepsis due to unspecified organism Sepsis acute organ dysfunction status: with acute organ dysfunction Severe sepsis acute organ dysfunction type: acute respiratory failure Acute respiratory failure type: with hypoxia Severe sepsis shock status: without septic shock Qualified Code (s): A41.9 - Sepsis, unspecified organism; R65.20 - Severe sepsis without septic shock; J96.01 - Acute respiratory failure with hypoxia (3) H/O: CVA (cerebrovascular accident) Code(s): Z86.73 - PRSNL HX OF TIA (TIA), AND CEREB INFRC W/O RESID DEFICITS Status: Chronic (4) HTN (hypertension) Code(s): I10 - ESSENTIAL (PRIMARY) HYPERTENSION Status: Chronic Qualifiers: Hypertension type: essential hypertension Qualified Code(s): I10 - Essential (primary) hypertension (5) Oropharyngeal dysphagia Code(s): R13.12 - DYSPHAGIA, OROPHARYNGEAL PHASE Status: Chronic (6) Moderate protein-calorie malnutrition Code(s): E44.0 - MODERATE PROTEIN-CALORIE MALNUTRITION Status: Chronic (7) Lactic acidosis Code(s): E87.2 - ACIDOSIS Status: Acute (8) Decubitus ulcer of buttock, unstageable Code(s): L89.300 - PRESSURE ULCER OF UNSPECIFIED BUTTOCK, UNSTAGEABLE Status: Acute - Plan old records reviewed/req, plan discussed w/ family, continue antibiotics, social work administrator 10/24/19 continue vancomycin and zosyn surgery consult for unsteagble decubitus ulcer wound care start tube feeding at slow rate follow culture prognosis is poor medication reviewed and continue to provide symptomatic treatment and supportive care 10/25/19 continue current antibiotic wound care supportive care nutritional support 10/26/19 continue antibiotics will need hospice to prevent readmission supportive care 10/27/19 discussed with family about his prognosis and all their concern addressed continue antibiotics supportive care DC IVF
--- NOTE | 2019-10-27 14:32 | PRG ---
DATE OF SERVICE: 10/27/2019 SERVICE: Pulmonary Medicine. INTERVAL HISTORY: The patient is doing okay from respiratory standpoint. Oxygen requirements are improving. We talked to the family about what the patient would like to do moving forward. For a very long period of time, the patient has been adamant that if he were to be in a chronically debilitated state that he would want to transition over to comfort care only. Now he is there. He is able to understand much of what we are saying, but it is not clear to me whether or not he appreciates the implications of choice he makes. That being said, inclined to believe that he may. He opens and closes his eyes. When we were having any side conversations, he actually teared up and became a little bit tachypneic. Despite being able to answer many questions appropriately, when asked if he would like to transition to comfort care only, or continue to be aggressive with fixing infections in the future as they come, he refused to give any answer. Otherwise, he cannot give me any additional elements of the history. PHYSICAL EXAMINATION: VITAL SIGNS: Afebrile, pulse 92, blood pressure 120/70, respirations 19, saturation 92% on 3 L via nasal cannula. GENERAL: The patient is awake and alert, in no apparent distress. LUNGS: Wonderful air entry. No prolonged expiratory phase or wheezing is appreciated. HEART: Normal rate and regular. ABDOMEN: Soft, nontender, and nondistended. Bowel sounds are positive. MUSCULOSKELETAL: No cyanosis or clubbing. There is no pitting in the bilateral lower extremities. NEUROLOGIC: He has a very dense right-sided hemiplegia. He is completely aphasic. That being said, he can blink, look left and right, . LABORATORY DATA: WBC 12.2, hemoglobin 10.2, and platelets 245,000. Neutrophil count is dropping. Lymphocytes and monocytes are very nicely rebounding. Eosinophil count is also increasing. Chloride 113 and stable, sodium 141 gently downtrending. Basic metabolic profile is otherwise unremarkable. Urinalysis is unremarkable. Vancomycin trough 17.2. One of two blood cultures is growing multiple contaminants. Urine culture, and influenza A and B are negative to date. ASSESSMENT: 1. Acute hypoxic respiratory failure, once again, resolving. 2. Healthcare-associated pneumonia of the right lower lobe secondary to gross aspiration. 3. Right upper lobe pulmonary nodule. 4. History of stroke with significant debility. 5. Chronic obstructive pulmonary disease, status post exacerbation. 6. Oropharyngeal dysphagia, status post PEG tube placement. DISCUSSION AND PLAN: We will continue supportive care moving forward. Palliative care will continue the discussions with the patient and the patient's family. Ultimately, our goal will be to support that the patient's and family's decision moving forward. We talked about following his pulmonary nodule and the patient's daughter absolutely does not want a look at this thing further. Still, the likelihood of this being a cancer is much lower than the chance that this is a cancer. Continue his antibiotics for a total duration of 7 days. From my perspective, we can transition him over to per feeding tube medications and transition him out of the hospital. At this point, he has no further requirements for inpatient Pulmonary or Critical Care opinion, and I will sign off. He should have a repeat chest x-ray in 5 to 6 weeks with followup with his primary care physician around that time. Job ID: [id number]
[2019-10-27] MEDS: Atorvastatin Calcium 40 MG TAB PER TUBE SCH (20:15)
[2019-10-28] MEDS: Vancomycin 1.5 GRAM/300 ML BAG 1.5 GM in Premix Bag 1 BAG IVPB SCH ×2 (02:29→14:25)
[2019-10-28] MEDS: methylPREDNISolone Sod Succ 40 MG VIAL IVP SCH (05:00)
[2019-10-28] MEDS: Piperacillin/Tazobactam 3.375 GM in Sodium Chloride 0.9% 100 ML IVPB SCH ×2 (05:00→12:59)
[2019-10-28] MEDS: HumaLOG 300 UNITS/3 ML VIAL SC PRN ×2 (05:02→16:38)
[2019-10-28 05:50] LABS: #Eosinphils 0.2 thou/uL (0.0-0.7); #Lymphocytes 2.5 thou/uL (1.20-3.40); #Monocytes 0.9 thou/uL (0.11-0.59); #Neutrophils 9.8 thou/uL (1.40-6.50); %Basophils 0.4 % (0.0-1.0); %Eosinophils 1.4 % (0.0-10.0); %Lymphocytes 18.9 % (21.0-51.0); %Monocytes 6.6 % (0.0-10.0); %Neutrophils 72.8 % (42.0-75.0); Hemoglobin 10.1 g/dL (14.0-18.0); Mean Corpuscular HGB CONC 32.3 g/dL (32.0-36.0); Mean Corpuscular Hemoglobin 28.5 pg (27.0-31.0); Mean Corpuscular Volume 88.3 fL (78.0-98.0); Mean Platelet Volume 9.8 fL (7.4-10.4); Platelet Count 236 thou/uL (130-400); RBC Distribution Width 12.8 % (11.5-14.5); Red Blood Cell (RBC) Count 3.55 mill/uL (4.70-6.10); White Blood Cell (WBC) Count 13.4 thou/uL (4.8-10.8)
[2019-10-28 06:13] LABS: Anion Gap 10 mmol/L (10-20); BUN (Urea Nitrogen) 20 mg/dL (8.4-25.7); Calc. Creatinine Clearance 140 mL/min (70-130); Calcium 7.7 mg/dL (7.8-10.44); Carbon Dioxide 23 mmol/L (23-31); Chloride 106 mmol/L (98-107); Estimated GFR-MDRD Greater than 90; Glucose 161 mg/dL (83-110); Potassium 4.3 mmol/L (3.5-5.1); Sodium 135 mmol/L (136-145)
[2019-10-28] MEDS: Aspirin 325 MG TAB PER TUBE SCH (08:59)
[2019-10-28] MEDS: Enoxaparin Sodium 40 MG/0.4 ML SYRINGE SC SCH (09:00)
[2019-10-28] MEDS: Pantoprazole 40 MG VIAL IVP SCH (09:00)
[2019-10-28 13:42] LABS: Vancomycin, Trough 15.2 ug/mL
--- NOTE | 2019-10-28 13:46 | DIS ---
DATE OF ADMISSION: 10/23/2019 DATE OF DISCHARGE: 10/28/2019 PRIMARY CARE PHYSICIAN: Haider Butler MD. DISCHARGE DISPOSITION: group home home. PRIMARY DISCHARGE DIAGNOSES: 1. Healthcare-associated bacterial pneumonia. 2. Sepsis with acute organ dysfunction. 3. Lactic acidosis. 4. Unstageable decubitus ulcer of buttock, present on admission. 5. Acute encephalopathy due to sepsis. SECONDARY DISCHARGE DIAGNOSES: History of CVA, physical deconditioning, diabetes type 2, hypertension, dyslipidemia, chronic obstructive pulmonary disease, pulmonary nodule, thyroid nodule, history of tobacco abuse disorder in the past, protein-calorie malnutrition, moderate oropharyngeal dysphagia. PRIMARY PROCEDURE AND OPERATION: None. RADIOLOGICAL INVESTIGATION: Chest x-ray showed right lower lobe pneumonia, right upper lobe pulmonary nodule. SIGNIFICANT LABORATORY DATA: WBC 13.4, hemoglobin 10.1, platelets 236. O2 of 57.6, CO2 of 30.1, bicarb 19.9. Sodium 135, potassium 4.3, BUN 20, creatinine 0.50, calcium 7.7. Urinalysis unremarkable with asymptomatic bacteriuria. Blood culture was negative. Urine culture negative. Influenza negative. DISCHARGE MEDICATIONS: 1. Vitamin B12 of 1000 mcg every 7 days. 2. Lantus 18 units subcu in the morning. 3. Augmentin 875 mg per tube twice daily for 7 days. 4. Tylenol 650 mg q.6 hourly p.r.n. 5. Aspirin 325 mg per tube daily. 6. Lipitor 40 mg per tube at bedtime. 7. Vitamin D3 of 5000 units per tube daily. 8. Pepcid 20 mg per tube b.i.d. 9. DuoNeb q.6 hourly. 10. Levaquin 500 mg per tube daily for 7 days. 11. Metoprolol tartrate 25 mg per tube b.i.d. 12. Florastor 250 mg per tube b.i.d. for 7 days. 13. Senokot-S 2 tablets per tube b.i.d. p.r.n. 14. Flomax 0.4 mg per tube daily. 15. Tramadol 50 mg q.6 hourly p.r.n. CONTRAINDICATION: None. CODE STATUS: DNR. INPATIENT RIB BENDER: Pulmonary group was consulted for severe sepsis. General Surgery was consulted for decubitus ulcer. TEST RESULTS PENDING ON DISCHARGE: None. ALLERGIES: CODEINE. DISCHARGE PLAN: Posthospital, the patient is discharged back to [facility]. HOSPITAL COURSE: This is a 74-year-old male, who has underlying history of CVA and since then, the patient is pretty much within a health care facility. Initially, he was hospitalized after stroke and then he went to [facility] and subsequently, he was transferred to [facility], and after that, the patient was transferred to group home. At group home, the patient was found short of breath and he appeared more altered than his baseline. He was transferred to emergency room and he was found with right lower lobe pneumonia. The patient was having sepsis with acute organ dysfunction with lactic acidosis and encephalopathy. The patient was treated with broad-spectrum antibiotic therapy with vancomycin and Zosyn. Pulmonary group was following while in hospital. The patient was transferred to medical floor. During this admission, we also noted that the patient has unstageable decubitus ulcer, which was present on admission, and for that reason, Wound Care Team recommended to consult General Surgery, which we did. General Surgery recommended continued to do wound care without any surgical intervention. With aggressive treatment, the patient's condition improved to his baseline level. He will continue his tube feeding as per previous order. Medication reconciliation done. While in hospital, we did out of hospital DNR paperwork. The patient was DNR while in hospital. Based on his current condition and overall comorbidities, the patient is continuously high risk for recurrent admission. I have seen and examined the patient at bedside today. Paperwork for discharge done and discharge medication reconciliation done. PHYSICAL EXAMINATION: VITAL SIGNS: Currently, temperature 97.7, pulse 76, respiratory rate 20, saturation 94%, blood pressure 155/74. Weight 171 pounds. GENERAL: The patient is currently alert, awake, at baseline, in no acute distress. HEENT: Head; normocephalic, atraumatic. Eyes; pupils round, reactive to light. Extraocular muscles intact. ENT; oropharynx within normal limits. Moist mucous membranes. NECK: Supple. No JVD. No meningeal signs of irritation. LUNGS: Clear to auscultation without any rhonchi or rales. CARDIAC: S1 and S2, regular. No murmur. No gallop. No rub. ABDOMEN: Soft. Bowel sounds present. PEG tube in place. EXTREMITIES: No edema. NEUROLOGIC: Residual weakness noted. Dysphagia and aphasia noted. The patient will be discharged back to group home today with the above-mentioned medication. On discharge, we changed to Augmentin and Levaquin for another 7 days. All his previous medications will be given through the PEG tube. Job ID: [id number]
[2019-10-28 17:14] VITALS: BP 110/71; TEMP 97.8
== END 2019-10-28 17:36 | DRG 871 ==
LOC: ERS 11:06 → ERHOLD 13:34 → IMCU/EMU 17:53 → T4-A 10-24 21:16
PROVIDERS: ADMIT Internal Medicine; ATTEND Internal Medicine
PROC: 5A09357 Assistance with Respiratory Ventilation, Less than 24 Consecutive Hours, Continuous Positive Airway Pressure (ICD-10-PCS; principal; 2019-10-23)
PROC: 3E0234Z Introduction of Serum, Toxoid and Vaccine into Muscle, Percutaneous Approach (ICD-10-PCS; 2019-10-24)
PROC: 3E02340 Introduction of Influenza Vaccine into Muscle, Percutaneous Approach (ICD-10-PCS; 2019-10-24)
DX: A41.9 Sepsis, unspecified organism (principal); G93.41 Metabolic encephalopathy; J15.9 Unspecified bacterial pneumonia; Z66 Do not resuscitate; J96.01 Acute respiratory failure with hypoxia; J69.0 Pneumonitis due to inhalation of food and vomit; E87.2 Acidosis; J44.0 Chronic obstructive pulmonary disease with (acute) lower respiratory infection; E44.0 Moderate protein-calorie malnutrition; R64 Cachexia; J44.1 Chronic obstructive pulmonary disease with (acute) exacerbation; R65.20 Severe sepsis without septic shock; Y95 Nosocomial condition; E78.5 Hyperlipidemia, unspecified; F17.290 Nicotine dependence, other tobacco product, uncomplicated; R91.1 Solitary pulmonary nodule; R13.12 Dysphagia, oropharyngeal phase; L89.300 Pressure ulcer of unspecified buttock, unstageable; Z23 Encounter for immunization; Z86.73 Personal history of transient ischemic attack (TIA), and cerebral infarction without residual deficits; Z85.828 Personal history of other malignant neoplasm of skin; Z88.8 Allergy status to other drugs, medicaments and biological substances; Z93.1 Gastrostomy status; Z79.899 Other long term (current) drug therapy; Z79.4 Long term (current) use of insulin; Z79.82 Long term (current) use of aspirin; Z79.2 Long term (current) use of antibiotics; Z68.24 Body mass index [BMI] 24.0-24.9, adult
CPT/HCPCS: 36415; 36416; 71045; 80048; 80053; 80202; 81003; 81015; 82805; 83605; 83880; 84484; 85025; 87040; 87086; 87149; 87804; 90471; 90662; 90670; 93005; 94640; 94660; 96361; 96365; 96366; 96367; 96375; 99292; C9113; G0008; G0009; J0692; J1650; J1956; J2060; J2543; J2920; J3370; J3490; J7050; J7620

== ENCOUNTER 2019-11-12 12:21 | Inpatient (IN) | payer MEDICARE ==
[2019-11-12 12:45] LABS: #Basophils 0.1 thou/uL (0.0-0.2); #Eosinphils 0.4 thou/uL (0.0-0.7); #Lymphocytes 2.8 thou/uL (1.20-3.40); #Neutrophils 7.8 thou/uL (1.40-6.50); %Basophils 1.1 % (0.0-1.0); %Eosinophils 3.4 % (0.0-10.0); %Lymphocytes 23.1 % (21.0-51.0); %Monocytes 8.2 % (0.0-10.0); %Neutrophils 64.2 % (42.0-75.0); Hemoglobin 12.8 g/dL (14.0-18.0); Mean Corpuscular HGB CONC 32.4 g/dL (32.0-36.0); Mean Corpuscular Hemoglobin 28.7 pg (27.0-31.0); Mean Corpuscular Volume 88.6 fL (78.0-98.0); Mean Platelet Volume 10.1 fL (7.4-10.4); Platelet Count 220 thou/uL (130-400); RBC Distribution Width 13.4 % (11.5-14.5); Red Blood Cell (RBC) Count 4.45 mill/uL (4.70-6.10); White Blood Cell (WBC) Count 12.2 thou/uL (4.8-10.8)
[2019-11-12 13:08] LABS: ALT (SGPT) 22 U/L (8-55); AST (SGOT) 25 U/L (5-34); Albumin 2.7 g/dL (3.4-4.8); Alkaline Phosphatase 277 U/L (40-110); Anion Gap 13 mmol/L (10-20); BUN (Urea Nitrogen) 21 mg/dL (8.4-25.7); Bilirubin, Total 0.8 mg/dL (0.2-1.2); Calc. Creatinine Clearance 0 mL/min (70-130); Calcium 8.9 mg/dL (7.8-10.44); Carbon Dioxide 25 mmol/L (23-31); Chloride 104 mmol/L (98-107); Estimated GFR-MDRD Greater than 90; Glucose 154 mg/dL (83-110); Potassium 4.5 mmol/L (3.5-5.1); Protein, Total 6.7 g/dL (5.8-8.1); Sodium 137 mmol/L (136-145)
[2019-11-12] MEDS ORDERED: Cefepime 2 GM VIAL ONE (13:14)
[2019-11-12 13:32] LABS: Bacteria/HPF None Seen HPF (None Seen); Bilirubin Negative (Negative); Blood, Urine Trace (Negative); Clarity Clear (Clear); Glucose, Urine (Dipstick) Normal (Negative); Leukocyte Negative Leu/uL (Negative); Nitrite Negative (Negative); Protein, Urine (Dipstick) 30 mg/dL (Neg-Trace); RBC/HPF Greater than 50 HPF (0-3); Squamous Epithelial 0-3 HPF (0-3); Urobilinogen Normal mg/dL (Less than 2)
--- NOTE | 2019-11-12 14:16 | RAD ---
CHEST 1 VIEW PORTABLE: Date: 11/12/2019 HISTORY: Dyspnea. COMPARISON: 10/24/2019. FINDINGS: Monitor leads overlie the chest. There is some rotation to the left. There are some increased linear, interstitial, and reticulonodular parenchymal changes, particularly in the perihilar regions and low er lung zones, stable from prior study, somewhat more marked on the right than the left. No new confl uent process. Evidence for some emphysema changes in the upper lung zones and some minimal scarring i n the left apex. IMPRESSION: Overall stable appearing increased linear and interstitial markings in the mid and lower lung zones, worse on the right side. No new confluent pneumonia. POS: [facility]
[2019-11-12] MEDS ORDERED: Iopamidol-370 76% 500 ML 1 ML ONE (14:45)
[2019-11-12] MEDS ORDERED: Senokot S 8.6-50 MG TAB PER TUBE PRN (14:53)
[2019-11-12] MEDS ORDERED: Dextrose 50% Abboject 50 ML SYRINGE SLOW IVP PRN (15:10)
[2019-11-12] MEDS ORDERED: Dextrose 5% in Water 1,000 ML IV PRN (15:10)
--- NOTE | 2019-11-12 15:58 | HP ---
PRIMARY CARE PROVIDER: Dr. Rhonda Hernandez. CHIEF COMPLAINT: Hypoxia. HISTORY OF PRESENT ILLNESS: Mr. Carmona is a pleasant 74-year-old gentleman, who was seen at [facility] on November 12, 2019. He was hospitalized at this facility from October 23 to October 28 of this year for healthcare-associated bacterial pneumonia, sepsis, buttock decubitus ulcer, and acute encephalopathy. He was discharged to [facility]. The patient is nonverbal, unable to provide any history. Collateral history was obtained from discussion with his daughters by the bedside, discussion with emergency room physician and review of medical records. The patient's daughter reports that he has lost approximately 15 pounds weight over the last week. He was also being suctioned at the [facility] for secretions, but yesterday, there were not many secretions that could be suctioned. Today morning, he was found to have oxygen saturation in the 80s. EMS was called. The patient's oxygen saturation was reportedly 70% on 5 L. The patient was started on CPAP with improvement in oxygenation. He was subsequently brought to the emergency room. In the emergency room, Mr. Carmona was diagnosed with pneumonia. Chest x-ray is not clear in terms of pneumonia. He received cefepime and levofloxacin and has been referred to Hospitalist Service for admission. REVIEW OF SYSTEMS: Could not be completed secondary to the patient's nonverbal status. PAST MEDICAL HISTORY: 1. Acute ischemic cerebrovascular accident. 2. Pulmonary nodule. 3. Skin lesion on right side of chin. 4. Oropharyngeal dysphagia, status post PEG tube placement. 5. Cholelithiasis. 6. Aspiration pneumonia. 7. MSSA in sputum culture. 8. Sacral decubitus ulcer. PAST SURGICAL HISTORY: 1. EGD. 2. PEG tube placement. 3. Remote history of back surgery. FAMILY HISTORY: Colon and lung cancer in mother. Colon cancer in sister. SOCIAL HISTORY: He is an ex-smoker. No history of alcohol use or recreational drug use. CODE STATUS: I discussed his code status. He is DNAR. ALLERGIES: NONE. CURRENT MEDICATIONS: As dictated by Dr. Barnes in his discharge summary dated on October 28, 2019, except for Augmentin, which he has completed the course. PHYSICAL EXAMINATION: GENERAL: On examination, Mr. Carmona is awake, not responding to verbal or tactile stimuli. VITAL SIGNS: Blood pressure is 108/66, pulse 87, respiratory rate 21, and oxygen saturation 99% on BiPAP. He is afebrile. EYES: No scleral icterus. No conjunctival pallor. ENT: Moist mucosal membranes. No oropharyngeal erythema or exudates. NECK: Supple, nontender, trachea is midline. RESPIRATORY: Accessory muscles of breathing are not active. Chest wall movements are symmetric bilaterally. Lung examination reveals right basilar crackles. CARDIOVASCULAR: S1 and S2 are heard, regular. Peripheral pulses palpable. ABDOMEN: Soft, nontender. PEG tube present. NEUROLOGIC: Full neurologic examination was not possible secondary to the patient's noncooperation. He appears to have left-sided weakness. MUSCULOSKELETAL: Left-sided weakness. SKIN: Sacral decubitus ulcer present. LYMPHATIC: No cervical lymphadenopathy. PSYCHIATRIC: Unable to assess mood, affect, or orientation to person, place, or time. LABORATORY AND DIAGNOSTIC DATA: Mr. Carmona's labs and investigations were reviewed. I reviewed his electrocardiogram, which shows normal sinus rhythm, no ST changes to suggest an acute coronary syndrome. I also reviewed his chest x-ray, which appears to show chronic right lower lobe changes, although I cannot rule out superimposed infiltrate. He has leukocytosis with 12,200 white cells, of which 64.2% are neutrophils, normocytic anemia with hemoglobin 12.8, normal platelet count, normal electrolytes, creatinine 0.64, alkaline phosphatase elevated at 277, it was 459 on October 23, 2019, albumin decreased at 2.7, otherwise unremarkable LFTs, normal BNP, and troponin-I is less than 0.010. Lactic acid is elevated at 2.3. Urinalysis is positive for protein and blood. Negative for nitrite or leukocyte esterase. ASSESSMENT AND PLAN: Mr. Carmona is a 74-year-old gentleman, who was seen at [facility] on November 12, 2019. His problem list includes: 1. Sepsis: Mr. Carmona is presenting with sepsis, source unknown, although pulmonary source cannot be ruled out, given his risk for aspiration. He will be admitted to the hospital for further management. He is currently on BiPAP and will be admitted to [facility]. I will continue him on cefepime and levofloxacin and follow blood cultures. 2. Acute hypoxic respiratory failure: Etiology is unclear, chest x-ray is underwhelming to find the etiology of acute hypoxic respiratory failure. Given his recent hospitalization, I will check CT scan of the chest to rule out pulmonary embolism. 3. Diabetes mellitus type 2: Start Accu-Cheks and insulin sliding scale. 4. Hypertension: We will monitor vital signs and titrate antihypertensives as needed. 5. Dyslipidemia: Continue statin. 6. Sacral decubitus ulcer: Consult Wound Care for help with management. Many thanks for allowing me to participate in your patient's care. Please feel free to contact me with any questions or concerns. LEVEL OF RISK: High. LEVEL OF COMPLEXITY: High. Job ID: [id number]
[2019-11-12 16:31] LABS: Lactic Acid 2.3 mmol/L (0.5-2.2)
[2019-11-12 16:40] LABS: Troponin I Less than 0.010 ng/mL (< 0.028)
--- NOTE | 2019-11-12 17:01 | CT ---
CT ANGIOGRAM THORAX WITH IV CONTRAST AND 3-D RECONSTRUCTIONS CLINICAL INDICATION: Low oxygen saturation. Recent diagnosis of pneumonia. COMPARISON: CT thorax 08/18/2019 FINDINGS: Pulmonary arteries: No filling defects are seen in the pulmonary arteries to suggest a pulmonary embo zia. Aorta: Vascular calcifications are seen in the thoracic aorta. The thoracic aorta is normal in calibe r. Dense vascular calcifications are also seen in the coronary arteries. The thoracic aorta is suboptimally opacified for evaluation of aortic dissection. Lungs: Again noted are chronic lung changes with evidence of COPD. Spiculated, and nodule right upper lobe is again seen and overall stable in size measuring approximately 9 to 10 mm. Stable spiculated appearing densities within the left lung apex are also seen. There are bibasilar parenchymal densities probably attributable to atelectasis. However, developing p neumonitis left lung base cannot be excluded. Mild patchy density is seen within the inferior posterior aspect of the right upper lobe which could be related to focal area of pneumonitis. Mediastinum: There is mild increase in number of mediastinal lymph nodes when compared to the prior e xam. There is also mild increase in soft tissue density in each hilar region. Mediastinal lymph nodes are not particularly enlarged. Largest lymph node is seen in a subcarinal location measuring 1. 1 cm in short axis dimension. Thyroid gland: Hypodense nodule left lobe of thyroid gland is again seen. Osseous structures: Degenerative changes are again seen in the spine. There is mild height loss invol ving the T11 vertebral body may represent a mild compression fracture stable compared to prior exam. Chest wall: No abnormality visualized. Upper abdomen: Multiple gallbladder calculi are again visualized. Gastrostomy tube is noted in place. No other interval change. IMPRESSION: 1. No CT evidence of a pulmonary embolus. 2. Stable spiculated pulmonary nodule right upper lobe with stable irregular nodularity in the left l onel apex. PET CT scan examination may be helpful for further evaluation. 3. Chronic lung changes and evidence of COPD. 4. Mild patchy parenchymal densities at each lung base as well as ill-defined patchy density in the r ight upper lobe which could be related to areas of pneumonitis. Follow-up to resolution is recommended. In addition, there is debris present within the trachea and each mainstem bronchus which could be related to debris or aspiration.. 5. Lymphadenopathy primarily based on increase in number of mediastinal lymph nodes as well as promin ent lymph nodes in each hilar region. 6. Cholelithiasis. 7. Stable hypodense nodule left lobe of the thyroid gland. Nonemergent thyroid ultrasound is recommen ded if this has not been performed.
[2019-11-12] MEDS: predniSONE 20 MG TAB PER TUBE SCH (17:50)
[2019-11-12 18:11] VITALS: BMI 22.9
--- NOTE | 2019-11-12 18:26 | CON ---
DATE OF CONSULTATION: 11/12/2019 This encompassed 70 minutes of time, of that time greater than 50% spent with the patient and/or the patient's unit in the hospital. CONSULTING PHYSICIAN: Wilfrid Bueno MD REASON FOR CONSULTATION: Acute respiratory failure related to aspiration pneumonia. HISTORY OF PRESENT ILLNESS: The patient is a 74-year-old, who is well known to our practice. He presents to the hospital from a care home with lethargy and increasing shortness of breath. I spoke to his daughter in the emergency room. He is currently on CPAP. He is responsive. PAST MEDICAL HISTORY: 1. Severe chronic obstructive pulmonary disease. 2. Stroke. 3. Aspiration. 4. Skin cancer. 5. Hyperlipidemia. PAST SURGICAL HISTORY: 1. PEG tube placement. 2. Back surgery. FAMILY MEDICAL HISTORY: Remarkable for cancer. SOCIAL HISTORY: Formerly a pack per day smoker, quit five years. MEDICATIONS PRIOR TO ADMISSION: 1. Metoprolol 25 mg per tube twice daily. 2. Famotidine 20 mg per tube twice daily. 3. DuoNeb every 6 hours as needed. 4. Aspirin 325 mg per tube daily. 5. Atorvastatin 40 mg per tube twice daily. 6. Vitamin B12 of 1000 mcg injection every Sunday. 7. Vitamin D3 of 5000 units per tube daily. 8. Tramadol 50 mg per tube three times daily. 9. Tamsulosin 0.4 mg per tube daily. 10. Lactobacillus acidophilus one caplet per tube twice daily. 11. Nystatin topical 1000 units/g topically as needed. 12. Senokot as needed. REVIEW OF SYSTEMS: Cannot be obtained because the patient's lethargy. ALLERGIES: CODEINE. PHYSICAL EXAMINATION: VITAL SIGNS: Temperature 96.8, pulse 85, blood pressure 105/84, and O2 saturation 100% on BiPAP. GENERAL: The patient is comfortable, appears in no distress. HEENT: Remarkable for alopecia. He has an abrasion over his chin. NECK: No adenopathy or JVD. LUNGS: Distant, but clear breath sounds. CARDIOVASCULAR: S1 and S2. Slightly tachycardic without murmur. ABDOMEN: Soft and nontender. PEG tube noted. EXTREMITIES: No clubbing or cyanosis. He has severe muscle wasting. LABORATORY DATA: White blood cell count 12.2, hematocrit 39.4, and platelet count 220. Sodium 137, potassium 4.5, chloride 104, CO2 of 25, BUN 21, creatinine 0.6, glucose 154, lactate 2.3, and alkaline phosphatase 277. His x-ray shows a right-sided infiltrate. ASSESSMENT: This is a severely debilitated 74-year-old, who presents with acute on chronic respiratory failure secondary to recurrent aspiration pneumonia. On top of this, he has fairly severe chronic obstructive pulmonary disease. RECOMMENDATIONS: The patient has been put on cefepime and Levaquin by the hospitalist group that should be adequate treatment for the pneumonia. He does not appear to be in bronchospasm at this time, so I think steroids can be given at a low dose as he got steroids in the hospital last time, he may have some degree of adrenal insufficiency. Continue BiPAP as needed. He will receive Pepcid for GI prophylaxis and enoxaparin for DVT prophylaxis. Job ID: [id number]
[2019-11-12 20:04] LABS: Troponin I Less than 0.010 ng/mL (< 0.028)
[2019-11-12] MEDS: Metoprolol Tartrate 25 MG TAB PER TUBE SCH (20:11)
[2019-11-12] MEDS: Atorvastatin Calcium 40 MG TAB PER TUBE SCH (20:13)
[2019-11-12] MEDS: Saccharomyces boulardii 250 MG CAP PER TUBE SCH (20:13)
[2019-11-12] MEDS: Famotidine 20 MG TAB PER TUBE SCH (20:13)
[2019-11-13] MEDS: Cefepime 2 GM in Sodium Chloride 0.9% 100 ML IVPB SCH ×2 (00:25→14:15)
[2019-11-13 03:40] LABS: #Lymphocytes 1.5 thou/uL (1.20-3.40); #Monocytes 0.5 thou/uL (0.11-0.59); #Neutrophils 7.8 thou/uL (1.40-6.50); %Basophils 0.2 % (0.0-1.0); %Eosinophils 0.3 % (0.0-10.0); %Lymphocytes 15.2 % (21.0-51.0); %Monocytes 4.9 % (0.0-10.0); %Neutrophils 79.3 % (42.0-75.0); Hemoglobin 11.8 g/dL (14.0-18.0); Mean Corpuscular HGB CONC 32.2 g/dL (32.0-36.0); Mean Corpuscular Hemoglobin 28.4 pg (27.0-31.0); Mean Corpuscular Volume 88.4 fL (78.0-98.0); Mean Platelet Volume 9.7 fL (7.4-10.4); Platelet Count 223 thou/uL (130-400); RBC Distribution Width 13.3 % (11.5-14.5); Red Blood Cell (RBC) Count 4.14 mill/uL (4.70-6.10); White Blood Cell (WBC) Count 9.9 thou/uL (4.8-10.8)
[2019-11-13 04:01] LABS: Anion Gap 14 mmol/L (10-20); BUN (Urea Nitrogen) 22 mg/dL (8.4-25.7); Calc. Creatinine Clearance 106 mL/min (70-130); Calcium 8.6 mg/dL (7.8-10.44); Carbon Dioxide 21 mmol/L (23-31); Chloride 107 mmol/L (98-107); Estimated GFR-MDRD Greater than 90; Glucose 178 mg/dL (83-110); Potassium 4.7 mmol/L (3.5-5.1); Sodium 137 mmol/L (136-145)
[2019-11-13] MEDS: Metoprolol Tartrate 25 MG TAB PER TUBE SCH ×2 (08:10→21:25)
[2019-11-13] MEDS: Saccharomyces boulardii 250 MG CAP PER TUBE SCH ×2 (08:10→21:24)
[2019-11-13] MEDS: predniSONE 20 MG TAB PER TUBE SCH ×2 (08:10→17:34)
[2019-11-13] MEDS: Enoxaparin Sodium 40 MG/0.4 ML SYRINGE SC SCH (08:11)
[2019-11-13] MEDS: Famotidine 20 MG TAB PER TUBE SCH ×2 (08:11→21:24)
[2019-11-13] MEDS: Insulin Glargine 18 UNITS in Pre-Filled Syringe 1 EACH SC SCH (08:11)
[2019-11-13] MEDS: Sodium Chloride 0.9% 1,000 ML IV SCH (15:26)
--- NOTE | 2019-11-13 16:51 | PRG ---
DATE OF SERVICE: 11/13/2019 SERVICE: Pulmonary Medicine. INTERVAL HISTORY: The patient has been off BiPAP overnight. He is currently on room air. He cannot provide any additional elements of the history or complaints. He is able to follow some very simple commands. Otherwise, there has been no interval change to his condition. OBJECTIVE: VITAL SIGNS: Afebrile, pulse 87, blood pressure 104/61, respirations 27, saturation 96% currently on 2 L nasal cannula. GENERAL: The patient is awake and alert, in no apparent distress. He is following some simple commands. HEENT: Normocephalic and atraumatic. Sclerae white. Conjunctivae pink. Oral mucosa is moist without lesions. LUNGS: Wonderful air entry. Rhonchi are present in the right base. No prolonged expiratory phase or wheezing is appreciated. HEART: Normal rate, regular. ABDOMEN: Soft, nontender, nondistended. Bowel sounds are positive. MUSCULOSKELETAL: No cyanosis or clubbing. There is no pitting or tenting throughout bilateral lower extremities. LABORATORY DATA: WBC downtrending to 9.9, hemoglobin 11.8, platelets 223,000. Basic metabolic profile is unremarkable. Liver function studies, troponin, BNP are all negative. Lactic acid is 2.3 and stable. Urinalysis is positive for some hematuria, and minimal pyuria which is improved compared to prior. Coag- negative staph is growing in 1/2 blood cultures. Influenza A and B were historically negative. ASSESSMENT: 1. Acute hypoxic respiratory failure, resolved. 2. Healthcare-associated pneumonia secondary to overt aspiration, recurrent. 3. Oropharyngeal dysphagia with PEG tube in place. 4. Chronic obstructive pulmonary disease with minimal exacerbation. 5. History of stroke with significant debility. 6. Right upper lobe pulmonary nodule, spiculated, previously identified and requires no additional followup as the patient's family would not want intervention even in the event that this were a cancer. DISCUSSION AND PLAN: At this point, the patient is basically back to baseline. I suspect his presentation was more associated with a mucus plug from aspiration rather than a true pneumonia. Either way, there is a small infiltrate and I cannot exclude the possibility of pneumonia, so treating with a 5 day course of HCAP coverage is reasonable. At this time, he has no further requirements for inpatient Pulmonary or Critical Care opinion. As such, I will sign off. Please call with additional questions or concerns through time. Palliative Care consultation is appropriate as the family has previously suggested the patient would not want to continue to exist in his current state (at the time of his stroke). Head of bed will be elevated to minimize future episodes of recurrent aspiration events through time, though they will be nearly impossible to prevent. He should remain strictly NPO and only fed through the PEG tube. Job ID: [id number] MTDD
--- NOTE | 2019-11-13 21:06 | PDOC.HOSPP ---
- Subjective non-verbal - Objective Vital Signs & Weight: Vital Signs (12 hours) Temp Pulse Resp BP Pulse Ox 11/13/19 19:34 96 28 H 96 11/13/19 18:05 97 16 100 11/13/19 16:47 98.1 F 105 H 28 H 125/79 99 11/13/19 15:10 95 11/13/19 15:00 97.9 F 104 H 18 114/73 95 11/13/19 13:42 87 29 H 97 11/13/19 11:17 96.9 F L Weight Admit Weight 155 lb Weight 155 lb 9.6 oz Most Recent Monitor Data Heart Rate from ECG 101 NIBP 104/61 NIBP BP-Mean 75 Respiration from ECG 32 SpO2 96 I&O: 11/12/19 11/13/19 11/14/19 06:59 06:59 06:59 Intake Total 110 648 Output Total 550 250 Balance -440 398 Result Diagrams: 11/13/19 03:25 11/13/19 03:25 Additional Labs: Accuchecks 11/13/19 11/13/19 11/13/19 18:47 16:46 10:30 POC Glucose 156 H 175 H 134 H 11/13/19 05:39 POC Glucose 155 H Hospitalist ROS - Medication Medications: Active Medications Generic Name Dose Route Start Last Admin Trade Name Nevilleq PRN Reason Stop Dose Admin Albuterol/Ipratropium 3 ml 11/12/19 19:00 11/13/19 19:34 Duoneb NEB 3 ml [id number] MIHIR Administration Atorvastatin Calcium 40 mg 11/12/19 21:00 11/12/19 20:13 Lipitor PER TUBE 40 mg HS MIHIR Administration Cholecalciferol 5,000 units 11/13/19 09:00 11/13/19 08:10 Vitamin D3 PO 5,000 units DAILY MIHIR Administration Enoxaparin Sodium 40 mg 11/13/19 09:00 11/13/19 08:11 Lovenox SC 40 mg 0900 MIHIR Administration Famotidine 20 mg 11/12/19 21:00 11/13/19 08:11 Pepcid PER TUBE 20 mg BID MIHIR Administration Cefepime HCl 2 gm/ Sodium 100 mls @ 200 mls/hr 11/13/19 01:00 11/13/19 14:15 Chloride IVPB 100 mls 0100,1300 MIHIR Administration Levofloxacin 750 mg/ Device 150 mls @ 100 mls/hr 11/13/19 14:00 11/13/19 13: 20 IVPB 150 mls 1400 MIHIR Administration Insulin Glargine 18 units/ 0.18 mls @ 0 mls/hr 11/13/19 09:00 11/13/19 08:11 Miscellaneous Medication SC Not Given QAM MIHIR Sodium Chloride 1,000 mls @ 75 mls/hr 11/13/19 14:45 11/13/19 15:26 Normal Saline 0.9% IV 1,000 mls .[id number] MIHIR Administration Metoprolol Tartrate 25 mg 11/12/19 21:00 11/13/19 08:10 Lopressor PER TUBE 25 mg BID MIHIR Administration Prednisone 20 mg 11/12/19 17:00 11/13/19 17:34 Prednisone PER TUBE 20 mg BID-WM MIHIR Administration Saccharomyces Boulardii 250 mg 11/12/19 21:00 11/13/19 08:10 Florastor PER TUBE 250 mg BID MIHIR Administration - Exam General Appearance: awake alert ENT: normocephalic atraumatic Neck: supple, no JVD Heart: RRR, no murmur, no gallops, no rubs Respiratory: no wheezes, no rales, no tachypnea Gastrointestinal: soft, non-tender, non-distended Hosp A/P (1) Acute respiratory failure with hypoxia and hypercarbia Code(s): J96.01 - ACUTE RESPIRATORY FAILURE WITH HYPOXIA; J96.02 - ACUTE RESPIRATORY FAILURE WITH HYPERCAPNIA Status: Acute (2) Aspiration pneumonia Code(s): J69.0 - PNEUMONITIS DUE TO INHALATION OF FOOD AND VOMIT Status: Acute (3) Sepsis Code(s): A41.9 - SEPSIS, UNSPECIFIED ORGANISM Status: Acute Qualifiers: - Plan The patient is clinically improving. His oxygenation status is back to baseline. Continue antibiotics. Continue tube feeding.
[2019-11-13] MEDS: Atorvastatin Calcium 40 MG TAB PER TUBE SCH (21:24)
[2019-11-14] MEDS: Cefepime 2 GM in Sodium Chloride 0.9% 100 ML IVPB SCH ×2 (00:28→12:49)
[2019-11-14 05:33] LABS: #Eosinphils 0.1 thou/uL (0.0-0.7); #Lymphocytes 2.1 thou/uL (1.20-3.40); #Monocytes 0.9 thou/uL (0.11-0.59); #Neutrophils 5.8 thou/uL (1.40-6.50); %Basophils 0.4 % (0.0-1.0); %Eosinophils 0.7 % (0.0-10.0); %Lymphocytes 23.9 % (21.0-51.0); %Monocytes 9.8 % (0.0-10.0); %Neutrophils 65.3 % (42.0-75.0); Hemoglobin 11.3 g/dL (14.0-18.0); Mean Corpuscular HGB CONC 33.6 g/dL (32.0-36.0); Mean Corpuscular Volume 89.3 fL (78.0-98.0); Mean Platelet Volume 9.9 fL (7.4-10.4); Platelet Count 196 thou/uL (130-400); RBC Distribution Width 13.6 % (11.5-14.5); Red Blood Cell (RBC) Count 3.78 mill/uL (4.70-6.10); White Blood Cell (WBC) Count 8.9 thou/uL (4.8-10.8)
[2019-11-14] MEDS: Sodium Chloride 0.9% 1,000 ML IV SCH ×3 (05:45→20:29)
[2019-11-14 05:55] LABS: Anion Gap 10 mmol/L (10-20); BUN (Urea Nitrogen) 20 mg/dL (8.4-25.7); Calc. Creatinine Clearance 110 mL/min (70-130); Calcium 8.1 mg/dL (7.8-10.44); Carbon Dioxide 21 mmol/L (23-31); Chloride 109 mmol/L (98-107); Estimated GFR-MDRD Greater than 90; Glucose 216 mg/dL (83-110); Potassium 4.1 mmol/L (3.5-5.1); Sodium 136 mmol/L (136-145)
--- NOTE | 2019-11-14 10:30 | PDOC.PALCO ---
Palliative Care Consult - Consult Details Requesting Physician: Dr Bueno Reason for Consult: goals of care Family Members Present: none, daughter had just left the hospital - Pertinent HPI 70 year old male who was recently discharged from the hospital to [facility]. Records indicate that patient has lost over 15lbs in the past week, with increase in secretions requiring suctioning. Patient has increase in respiratory compromise and was identified to have poor pulmonary perfusion identified by low o2 saturation. EMS was called, and after evaluating patient he was transferred to [facility] for evaluation. Diagnosed with pneumonia and admitted for medical management. - Pertinent PMH CVA, Pulmonary nodule, skin lesion right side of chin, dysphagia, PEG, - Social History Smoking Status: Former smoker Smoking: quit greater than 1 year Alcohol Use: none Drug Use History: none Living Situation: [facility] resident - Medications MAR Reviewed: Yes - Allergies Allergies/Adverse Reactions: Allergies Allergy/AdvReac Type Severity Reaction Status Date / Time codeine Allergy Verified 08/20/19 10:52 - Subjective Mr Carmona had just been transferred to the medical floor, was lethargic, non verbal at time of assessment. Daughter had just left and will return 11/14 - ROS Non Response: due to mental status - Objective Vital Signs: Vital Signs - Most Recent Temp Pulse Resp BP Pulse Ox 98.2 F 70 20 127/84 98 11/14/19 07:33 11/14/19 07:52 11/14/19 07:52 11/14/19 07:33 11/14/19 09:00 Palliative Performance Scale: 30 - Physical Exam Constitutional: emaciated, encephalitic, ill appearing HEENT: moist MMs, sclera anicteric (mild adventicious lung sounds right lobe) Cardiovascular: RRR Gastrointestinal: soft, non-tender, incontinent Genitourinary: milan catheter Musculoskeletal: pulses present Neurology: moves all 4 limbs Deviation from normal: facial drop, right Skin: bruising, fragile, friable Deviation from normal: Skin lesion chin, sacral wound Deviation from normal: confused, flat affect - Problem List (1) Palliative care encounter Code(s): Z51.5 - ENCOUNTER FOR PALLIATIVE CARE Current Visit: Yes Status: Acute (2) Physical deconditioning Code(s): R53.81 - OTHER MALAISE Current Visit: Yes Status: Acute (3) Acute respiratory failure with hypoxia and hypercarbia Code(s): J96.01 - ACUTE RESPIRATORY FAILURE WITH HYPOXIA; J96.02 - ACUTE RESPIRATORY FAILURE WITH HYPERCAPNIA Current Visit: No Status: Acute (4) Aspiration pneumonia Code(s): J69.0 - PNEUMONITIS DUE TO INHALATION OF FOOD AND VOMIT Current Visit : No Status: Acute (5) COPD with acute exacerbation Code(s): J44.1 - CHRONIC OBSTRUCTIVE PULMONARY DISEASE W (ACUTE) EXACERBATION Current Visit: No Status: Acute (6) Moderate protein-calorie malnutrition Code(s): E44.0 - MODERATE PROTEIN-CALORIE MALNUTRITION Current Visit: No Status: Chronic (7) Oropharyngeal dysphagia Code(s): R13.12 - DYSPHAGIA, OROPHARYNGEAL PHASE Current Visit: No Status: Chronic - Plan/Recommendations Plan: Review of records indicate continued decline; poor intake, aspiration risk, and max assist for ADL. Will visit with the daughter and discuss overall goals of care with decreasing functional status and multiple morbidities. Address measures to manage symptoms and attempt to achieve optimal quality of life in discussing goals of care. Will assess if ST involved with patient. Ricardo Yen RNcement mason also following, please refer to her notes as well. [50] minutes spent on this encounter with >50% of the time in counseling and coordination of care. Thank you for this very appropriate consult.
[2019-11-14] MEDS: Saccharomyces boulardii 250 MG CAP PER TUBE SCH ×2 (10:34→20:26)
[2019-11-14] MEDS: Metoprolol Tartrate 25 MG TAB PER TUBE SCH ×2 (10:35→20:26)
[2019-11-14] MEDS: Famotidine 20 MG TAB PER TUBE SCH ×2 (10:35→20:26)
[2019-11-14] MEDS: Insulin Glargine 18 UNITS in Pre-Filled Syringe 1 EACH SC SCH (10:36)
[2019-11-14] MEDS: predniSONE 20 MG TAB PER TUBE SCH ×2 (10:38→17:39)
[2019-11-14] MEDS: Enoxaparin Sodium 40 MG/0.4 ML SYRINGE SC SCH (10:38)
--- NOTE | 2019-11-14 11:50 | PQF ---
EMILIA SMITH ARMANDO KEENE [id number] CLINICAL DOCUMENTATION IMPROVEMENT CLARIFICATION FORM: ICD-10 Updated PLEASE DO AN ADDENDUM TO THE PROGRESS NOTE WITH ANY DOCUMENTATION UPDATES OR ADDITIONS AND CARRY THROUGH TO DC SUMMARY. THANK YOU. Date: 11/14/19 ATTN: DR. Aletha KEENE Please exercise your independent, professional judgment in responding to the clarification form. Clinical indicators are provided on the bottom of this form for your review. Please check appropriate box(s): [ > ] Protein Calorie Malnutrition: [ ] Mild [ > ] Moderate [ ] Severe [ ] Other Malnutrition (please specify) __ [ ] Cachexia [ ] Other diagnosis [ ] Unable to determine In addition, please specify: Present on Admission (POA): [ ] Yes [ ] No [ ] Unable to determine CLINICAL INDICATORS - SIGNS / SYMPTOMS / LABS / RESULTS AND LOCATION IN MR 11/12 H&P (NAVEEN) THE PATIENT'S DAUGHTER REPORTS HE HAS LOST APPROXIMATELY 15 POUNDS OVER THE LAST WEEK. 11/12 CONSULT (PHANI) PHYSICAL EXAM: HE HAS SEVERE MUSCLE WASTING 11/13 ASSESSMENT: NUTRITION DIAGNOSIS - MALNUTRITION R/T PNEUMONIA AND SEPSIS EVIDENCED BY MODERATE TO SEVERE TEMPORAL MUSCLE WASTING OBSERVED; -9% WEIGHT LOSS OVER THE PAST 3 WEEKS SINCE LAST ADMIT SUGGESTIVE OF SEVERE MALNUTRITION IN THE CONTEXT OF AN ACUTE ILLNESS. RISK: HX : STROKE, ASPIRATION PNEUMONIA , OROPHARYNGEAL DYSPHAGIA WITH PEG TUBE PLACEMENT ( H&P/NAVEEN) 11/12 TREATMENTS: DIETARY CONSULT( 11/13) RECOMMEND GLUCERNA TUBE FEEDS (RD/11/13) Moderate Malnutrition (in acute illness) Energy Intake: <75% of estimated energy requirement for > 7 days Weight Loss: 1-2%/1 week; 5%/ 1 month; 7.5%/3 months Other: mild body fat loss; mild muscle mass loss; mild fluid accumulation; Severe Malnutrition (in acute illness) Energy Intake: < 50% of estimated energy requirement for > 5 days Weight Loss: >1-2%/1 week; >5%/1 month; >7.5%/3 months Other: moderate body fat loss; moderate muscle mass loss; moderate- severe fluid accumulation; measurably reduced ios architect strength Moderate Malnutrition (in chronic illness) Energy Intake: <75% of estimated energy requirement for >1 month Weight Loss: 5%/1 month; 7.5%/3 months; 10%/6 months; 20%/1 year Other: mild body fat loss; mild muscle mass loss; mild fluid accumulation Severe Malnutrition (in chronic illness) Energy Intake: <75% of estimated energy requirement for >1 month Weight Loss: >5%/1 month; >7.5%/3 months; >10%/6 months; >20%/1 year Other: severe body fat loss; severe muscle mass loss; severe fluid accumulation ; measurably reduced ios architect strength THANK YOU! MAXIME (This form is maintained as a part of the permanent medical record) 2014 [employer]. All Rights Reserved [email or web address] [phone] MTDD
--- NOTE | 2019-11-14 15:45 | PDOC.HOSPP ---
- Subjective Encounter Date: 11/14/19 non-verbal (Confused) - Objective Vital Signs & Weight: Vital Signs (12 hours) Temp Pulse Resp BP Pulse Ox 11/14/19 13:55 58 L 24 H 97 11/14/19 12:00 95 11/14/19 09:00 98 11/14/19 07:52 70 20 98 11/14/19 07:33 98.2 F 62 16 127/84 96 Weight Admit Weight 155 lb Weight 155 lb 9.6 oz Most Recent Monitor Data Heart Rate from ECG 101 NIBP 104/61 NIBP BP-Mean 75 Respiration from ECG 32 SpO2 96 I&O: 11/13/19 11/14/19 11/15/19 06:59 06:59 06:59 Intake Total 110 648 Output Total 550 250 Balance -440 398 Result Diagrams: 11/14/19 05:21 11/14/19 05:21 Additional Labs: Accuchecks 11/14/19 11/14/19 11/13/19 11:10 05:00 21:10 POC Glucose 260 H 216 H 162 H 11/13/19 11/13/19 18:47 16:46 POC Glucose 156 H 175 H Hospitalist ROS - Medication Medications: Active Medications Generic Name Dose Route Start Last Admin Trade Name Freq PRN Reason Stop Dose Admin Albuterol/Ipratropium 3 ml 11/12/19 19:00 11/14/19 13:55 Duoneb NEB 3 ml [id number] MIHIR Administration Atorvastatin Calcium 40 mg 11/12/19 21:00 11/13/19 21:24 Lipitor PER TUBE 40 mg HS MIHIR Administration Cholecalciferol 5,000 units 11/13/19 09:00 11/14/19 10:36 Vitamin D3 PO 5,000 units DAILY MIHIR Administration Enoxaparin Sodium 40 mg 11/13/19 09:00 11/14/19 10:38 Lovenox SC 40 mg 0900 MIHIR Administration Famotidine 20 mg 11/12/19 21:00 11/14/19 10:35 Pepcid PER TUBE 20 mg BID MIHIR Administration Cefepime HCl 2 gm/ Sodium 100 mls @ 200 mls/hr 11/13/19 01:00 11/14/19 12:49 Chloride IVPB 100 mls 0100,1300 MIHIR Administration Levofloxacin 750 mg/ Device 150 mls @ 100 mls/hr 11/13/19 14:00 11/14/19 14: 55 IVPB 150 mls 1400 MIHIR Administration Insulin Glargine 18 units/ 0.18 mls @ 0 mls/hr 11/13/19 09:00 11/14/19 10:36 Miscellaneous Medication SC 0.18 mls QAM MIHIR Administration Sodium Chloride 1,000 mls @ 75 mls/hr 11/13/19 14:45 11/14/19 05:45 Normal Saline 0.9% IV 1,000 mls .[id number] MIHIR Administration Metoprolol Tartrate 25 mg 11/12/19 21:00 11/14/19 10:35 Lopressor PER TUBE 25 mg BID MIHIR Administration Prednisone 20 mg 11/12/19 17:00 11/14/19 10:38 Prednisone PER TUBE 20 mg BID-WM MIHIR Administration Saccharomyces Boulardii 250 mg 11/12/19 21:00 11/14/19 10:34 Florastor PER TUBE 250 mg BID MIHIR Administration - Exam Neck: supple, no JVD Heart: RRR Respiratory: normal chest expansion, no tachypnea, rhonchi Gastrointestinal: soft, non-tender, non-distended, normal bowel sounds Hosp A/P (1) Acute respiratory failure with hypoxia and hypercarbia Code(s): J96.01 - ACUTE RESPIRATORY FAILURE WITH HYPOXIA; J96.02 - ACUTE RESPIRATORY FAILURE WITH HYPERCAPNIA Status: Acute (2) Aspiration pneumonia Code(s): J69.0 - PNEUMONITIS DUE TO INHALATION OF FOOD AND VOMIT Status: Acute (3) Sepsis Code(s): A41.9 - SEPSIS, UNSPECIFIED ORGANISM Status: Acute Qualifiers: - Plan Sepsis resolved. Continue IV antibiotics Day 2/5. Tolerating tube feeding. Blood culture showing coag -tive staph in 1 out of 2 bottles likely contamination. Appreciate Pulm recommendations.
[2019-11-14] MEDS: Acetaminophen 325 MG TAB PER TUBE PRN (20:26)
[2019-11-14] MEDS: Atorvastatin Calcium 40 MG TAB PER TUBE SCH (20:26)
[2019-11-15] MEDS: Cefepime 2 GM in Sodium Chloride 0.9% 100 ML IVPB SCH ×2 (02:49→13:45)
[2019-11-15] MEDS: HumaLOG 300 UNITS/3 ML VIAL SC PRN ×2 (06:16→16:35)
[2019-11-15 07:13] LABS: #Lymphocytes 1.7 thou/uL (1.20-3.40); #Monocytes 0.7 thou/uL (0.11-0.59); #Neutrophils 5.3 thou/uL (1.40-6.50); %Basophils 0.1 % (0.0-1.0); %Eosinophils 0.3 % (0.0-10.0); %Lymphocytes 21.9 % (21.0-51.0); %Monocytes 8.7 % (0.0-10.0); %Neutrophils 69.1 % (42.0-75.0); Hemoglobin 10.6 g/dL (14.0-18.0); Mean Corpuscular Hemoglobin 28.9 pg (27.0-31.0); Mean Corpuscular Volume 87.6 fL (78.0-98.0); Mean Platelet Volume 9.4 fL (7.4-10.4); Platelet Count 194 thou/uL (130-400); RBC Distribution Width 13.4 % (11.5-14.5); Red Blood Cell (RBC) Count 3.66 mill/uL (4.70-6.10); White Blood Cell (WBC) Count 7.7 thou/uL (4.8-10.8)
[2019-11-15 07:28] LABS: Anion Gap 10 mmol/L (10-20); BUN (Urea Nitrogen) 18 mg/dL (8.4-25.7); Calc. Creatinine Clearance 116 mL/min (70-130); Calcium 8.1 mg/dL (7.8-10.44); Carbon Dioxide 21 mmol/L (23-31); Chloride 109 mmol/L (98-107); Estimated GFR-MDRD Greater than 90; Glucose 193 mg/dL (83-110); Potassium 4.3 mmol/L (3.5-5.1); Sodium 136 mmol/L (136-145)
[2019-11-15] MEDS: Metoprolol Tartrate 25 MG TAB PER TUBE SCH ×2 (08:44→19:37)
[2019-11-15] MEDS: Famotidine 20 MG TAB PER TUBE SCH ×2 (08:44→19:36)
[2019-11-15] MEDS: predniSONE 20 MG TAB PER TUBE SCH ×2 (08:45→16:31)
[2019-11-15] MEDS: Saccharomyces boulardii 250 MG CAP PER TUBE SCH ×2 (08:46→19:37)
[2019-11-15] MEDS: Enoxaparin Sodium 40 MG/0.4 ML SYRINGE SC SCH (08:47)
[2019-11-15] MEDS: Insulin Glargine 18 UNITS in Pre-Filled Syringe 1 EACH SC SCH (08:48)
--- NOTE | 2019-11-15 12:50 | PDOC.FMACP ---
Advance Care Planning - Note Participants: patient, family, surrogate decision-maker Summary: Advanced Care Planning was discussed. The diagnosis, prognosis and goals of care were discussed. Appropriate forms and documentation to accomplish the goals of care were discussed. All questions were answered. The Palliative Care Team will be engaged to assist with completion of any outstanding forms that are needed. Discussed pathway options for the recurrent aspirations. The patient's daughter and POA says she understands he will not get better and his prognosis is less than 6 months. She talked to the [facility] about hospice but was told that they would manage him there. They also told her he would come back to the hospital every time unless she specifically told them not to. She is willing to meet with hospice here to help her make an informed decision. Discussed with CM. Will get hospice consult. Time Spent (mins): 17
--- NOTE | 2019-11-15 12:51 | PDOC.HOSPP ---
- Subjective Encounter Date: 11/15/19 Subjective: Non-verbal. Discussed with patient's daughter/POA and son. They feel he does not look as good today as he did yesterday. Concerned about darker urine. - Objective Vital Signs & Weight: Vital Signs (12 hours) Temp Pulse Resp BP Pulse Ox 11/15/19 08:00 97.6 F 89 20 106/63 96 11/15/19 06:41 86 18 92 L Weight Admit Weight 155 lb Weight 155 lb 9.6 oz Most Recent Monitor Data Heart Rate from ECG 101 NIBP 104/61 NIBP BP-Mean 75 Respiration from ECG 32 SpO2 96 I&O: 11/14/19 11/15/19 11/16/19 06:59 06:59 06:59 Intake Total 648 2300 1790 Output Total 250 850 Balance 398 1450 1790 Result Diagrams: 11/15/19 06:38 11/15/19 06:38 Additional Labs: Accuchecks 11/15/19 11/15/19 11/14/19 11:37 05:41 19:14 POC Glucose 175 H 206 H 220 H 11/14/19 11/14/19 16:15 16:09 POC Glucose 196 H 184 H Hospitalist ROS - Medication Medications: Active Medications Generic Name Dose Route Start Last Admin Trade Name Freq PRN Reason Stop Dose Admin Acetaminophen 650 mg 11/12/19 14:53 11/14/19 20:26 Tylenol PER TUBE 650 mg Q4H PRN Administration Headache/Fever/Mild Pain (1-3) Albuterol/Ipratropium 3 ml 11/12/19 19:00 11/15/19 06:41 Duoneb NEB 3 ml [id number] MIHIR Administration Atorvastatin Calcium 40 mg 11/12/19 21:00 11/14/19 20:26 Lipitor PER TUBE 40 mg HS MIHIR Administration Cholecalciferol 5,000 units 11/13/19 09:00 11/15/19 08:46 Vitamin D3 PO 5,000 units DAILY MIHIR Administration Enoxaparin Sodium 40 mg 11/13/19 09:00 11/15/19 08:47 Lovenox SC 40 mg 0900 MIHIR Administration Famotidine 20 mg 11/12/19 21:00 11/15/19 08:44 Pepcid PER TUBE 20 mg BID MIHIR Administration Cefepime HCl 2 gm/ Sodium 100 mls @ 200 mls/hr 11/13/19 01:00 11/15/19 02:49 Chloride IVPB 100 mls 0100,1300 MIHIR Administration Levofloxacin 750 mg/ Device 150 mls @ 100 mls/hr 11/13/19 14:00 11/14/19 14: 55 IVPB 150 mls 1400 MIHIR Administration Insulin Glargine 18 units/ 0.18 mls @ 0 mls/hr 11/13/19 09:00 11/15/19 08:48 Miscellaneous Medication SC 0.18 mls QAM MIHIR Administration Sodium Chloride 1,000 mls @ 75 mls/hr 11/13/19 14:45 11/14/19 20:29 Normal Saline 0.9% IV 1,000 mls .[id number] MIHIR Administration Insulin Human Lispro 0 units 11/12/19 15:10 11/15/19 06:16 Humalog SC 3 unit .MILD SLIDING SCALE PRN Administration Mild Correctional Scale Metoprolol Tartrate 25 mg 11/12/19 21:00 11/15/19 08:44 Lopressor PER TUBE 25 mg BID MIHIR Administration Prednisone 20 mg 11/12/19 17:00 11/15/19 08:45 Prednisone PER TUBE 20 mg BID-WM MIHIR Administration Saccharomyces Boulardii 250 mg 11/12/19 21:00 11/15/19 08:46 Florastor PER TUBE 250 mg BID MIHIR Administration - Exam General Appearance: NAD General - other findings: Somnolent, non-verbal Heart: RRR, no murmur, no gallops, no rubs, normal peripheral pulses Respiratory: CTAB, no wheezes, no rales, no ronchi, normal chest expansion, no tachypnea, normal percussion Gastrointestinal: soft, non-distended Gastrointestinal - other findings: PEG Extremities: no cyanosis, no clubbing, no edema Psychiatric: not oriented Hosp A/P (1) Acute respiratory failure with hypoxia and hypercarbia Code(s): J96.01 - ACUTE RESPIRATORY FAILURE WITH HYPOXIA; J96.02 - ACUTE RESPIRATORY FAILURE WITH HYPERCAPNIA Status: Acute (2) Aspiration pneumonia Code(s): J69.0 - PNEUMONITIS DUE TO INHALATION OF FOOD AND VOMIT Status: Acute (3) Decubitus ulcer of buttock, unstageable Code(s): L89.300 - PRESSURE ULCER OF UNSPECIFIED BUTTOCK, UNSTAGEABLE Status: Acute (4) Pulmonary nodule Code(s): R91.1 - SOLITARY PULMONARY NODULE Status: Acute (5) Thyroid nodule Code(s): E04.1 - NONTOXIC SINGLE THYROID NODULE Status: Acute (6) H/O: CVA (cerebrovascular accident) Code(s): Z86.73 - PRSNL HX OF TIA (TIA), AND CEREB INFRC W/O RESID DEFICITS Status: Chronic (7) HTN (hypertension) Code(s): I10 - ESSENTIAL (PRIMARY) HYPERTENSION Status: Chronic Qualifiers: Hypertension type: essential hypertension Qualified Code(s): I10 - Essential (primary) hypertension (8) Moderate protein-calorie malnutrition Code(s): E44.0 - MODERATE PROTEIN-CALORIE MALNUTRITION Status: Chronic (9) Oropharyngeal dysphagia Code(s): R13.12 - DYSPHAGIA, OROPHARYNGEAL PHASE Status: Chronic - Plan Day 3/5 abx for aspiration pneumonia. Continuing with supplement oxygen. Continue the PEG feeds. Discussed disposition with family. See the ACP note. Continue wound care to sacrum. Family does not want pursue the lung nodule workup.
[2019-11-15] MEDS: Atorvastatin Calcium 40 MG TAB PER TUBE SCH (19:36)
[2019-11-15] MEDS: Acetaminophen 325 MG TAB PER TUBE PRN (19:37)
[2019-11-15] MEDS: Sodium Chloride 0.9% 1,000 ML IV SCH (23:57)
[2019-11-16] MEDS: Cefepime 2 GM in Sodium Chloride 0.9% 100 ML IVPB SCH ×2 (00:01→12:30)
[2019-11-16] MEDS: Famotidine 20 MG TAB PER TUBE SCH ×2 (08:06→21:44)
[2019-11-16] MEDS: Metoprolol Tartrate 25 MG TAB PER TUBE SCH ×2 (08:06→21:44)
[2019-11-16] MEDS: predniSONE 20 MG TAB PER TUBE SCH ×2 (08:06→16:37)
[2019-11-16] MEDS: Saccharomyces boulardii 250 MG CAP PER TUBE SCH ×2 (08:08→21:44)
[2019-11-16] MEDS: Enoxaparin Sodium 40 MG/0.4 ML SYRINGE SC SCH (08:08)
[2019-11-16] MEDS: Insulin Glargine 18 UNITS in Pre-Filled Syringe 1 EACH SC SCH (08:09)
[2019-11-16] MEDS: Sodium Chloride 0.9% 1,000 ML IV SCH (11:13)
[2019-11-16] MEDS: HumaLOG 300 UNITS/3 ML VIAL SC PRN (18:13)
[2019-11-16] MEDS: Atorvastatin Calcium 40 MG TAB PER TUBE SCH (21:44)
--- NOTE | 2019-11-16 22:51 | PDOC.HOSPP ---
- Subjective Encounter Date: 11/16/19 Subjective: Called by nursing to come see the patient and his daughter this morning. When she arrived, he was less interactive and she was not dealing with that well. By my arrival, he was back to baseline. She was doing better. - Objective Vital Signs & Weight: Vital Signs (12 hours) Temp Pulse Resp BP Pulse Ox 11/16/19 20:00 97.7 F 75 20 139/71 98 11/16/19 19:38 72 12 98 11/16/19 11:58 65 18 95 11/16/19 11:00 97.7 F 59 L 18 147/69 H 96 Weight Admit Weight 155 lb Weight 155 lb 9.6 oz Most Recent Monitor Data Heart Rate from ECG 101 NIBP 104/61 NIBP BP-Mean 75 Respiration from ECG 32 SpO2 96 I&O: 11/15/19 11/16/19 11/17/19 06:59 06:59 06:59 Intake Total 2300 6060 350 Output Total 850 1050 Balance 1450 5010 350 Result Diagrams: 11/15/19 06:38 11/15/19 06:38 Additional Labs: Accuchecks 11/16/19 11/16/19 11/16/19 22:02 16:17 11:21 POC Glucose 191 H 210 H 165 H 11/16/19 04:59 POC Glucose 201 H Hospitalist ROS - Medication Medications: Active Medications Generic Name Dose Route Start Last Admin Trade Name Freq PRN Reason Stop Dose Admin Acetaminophen 650 mg 11/12/19 14:53 11/15/19 19:37 Tylenol PER TUBE 650 mg Q4H PRN Administration Headache/Fever/Mild Pain (1-3) Albuterol/Ipratropium 3 ml 11/12/19 19:00 11/16/19 19:38 Duoneb NEB 3 ml [id number] MIHIR Administration Atorvastatin Calcium 40 mg 11/12/19 21:00 11/16/19 21:44 Lipitor PER TUBE 40 mg HS MIHIR Administration Cholecalciferol 5,000 units 11/13/19 09:00 11/16/19 08:07 Vitamin D3 PO 5,000 units DAILY MIHIR Administration Enoxaparin Sodium 40 mg 11/13/19 09:00 11/16/19 08:08 Lovenox SC 40 mg 0900 MIHIR Administration Famotidine 20 mg 11/12/19 21:00 11/16/19 21:44 Pepcid PER TUBE 20 mg BID MIHIR Administration Cefepime HCl 2 gm/ Sodium 100 mls @ 200 mls/hr 11/13/19 01:00 11/16/19 12:30 Chloride IVPB 100 mls 0100,1300 MIHIR Administration Levofloxacin 750 mg/ Device 150 mls @ 100 mls/hr 11/13/19 14:00 11/16/19 14: 27 IVPB 150 mls 1400 MIHIR Administration Insulin Glargine 18 units/ 0.18 mls @ 0 mls/hr 11/13/19 09:00 11/16/19 08:09 Miscellaneous Medication SC 0.18 mls QAM MIHIR Administration Sodium Chloride 1,000 mls @ 75 mls/hr 11/13/19 14:45 11/16/19 11:13 Normal Saline 0.9% IV 1,000 mls .[id number] MIHIR Administration Insulin Human Lispro 0 units 11/12/19 15:10 11/16/19 18:13 Humalog SC 3 unit .MILD SLIDING SCALE PRN Administration Mild Correctional Scale Metoprolol Tartrate 25 mg 11/12/19 21:00 11/16/19 21:44 Lopressor PER TUBE 25 mg BID MIHIR Administration Prednisone 20 mg 11/12/19 17:00 11/16/19 16:37 Prednisone PER TUBE 20 mg BID-WM MIHIR Administration Saccharomyces Boulardii 250 mg 11/12/19 21:00 11/16/19 21:44 Florastor PER TUBE 250 mg BID MIHIR Administration - Exam General Appearance: NAD General - other findings: Does follow some commands. Heart: RRR, no murmur, no gallops, no rubs, normal peripheral pulses Respiratory: CTAB, no wheezes, no rales, no ronchi, normal chest expansion, no tachypnea, normal percussion Gastrointestinal: soft, non-tender, non-distended, normal bowel sounds, no palpable masses, no hepatomegaly, no splenomegaly, no bruit Extremities: no cyanosis, no clubbing, no edema Neurological - other findings: Left hemiplegia Musculoskeletal: generalized weakness Psychiatric - other findings: Non-verbal. Makes eye contact. Will follow some commands. Hosp A/P (1) Acute respiratory failure with hypoxia and hypercarbia Code(s): J96.01 - ACUTE RESPIRATORY FAILURE WITH HYPOXIA; J96.02 - ACUTE RESPIRATORY FAILURE WITH HYPERCAPNIA Status: Acute (2) Aspiration pneumonia Code(s): J69.0 - PNEUMONITIS DUE TO INHALATION OF FOOD AND VOMIT Status: Acute (3) Decubitus ulcer of buttock, unstageable Code(s): L89.300 - PRESSURE ULCER OF UNSPECIFIED BUTTOCK, UNSTAGEABLE Status: Acute (4) Pulmonary nodule Code(s): R91.1 - SOLITARY PULMONARY NODULE Status: Acute (5) Thyroid nodule Code(s): E04.1 - NONTOXIC SINGLE THYROID NODULE Status: Acute (6) H/O: CVA (cerebrovascular accident) Code(s): Z86.73 - PRSNL HX OF TIA (TIA), AND CEREB INFRC W/O RESID DEFICITS Status: Chronic (7) HTN (hypertension) Code(s): I10 - ESSENTIAL (PRIMARY) HYPERTENSION Status: Chronic Qualifiers: Hypertension type: essential hypertension Qualified Code(s): I10 - Essential (primary) hypertension (8) Moderate protein-calorie malnutrition Code(s): E44.0 - MODERATE PROTEIN-CALORIE MALNUTRITION Status: Chronic (9) Oropharyngeal dysphagia Code(s): R13.12 - DYSPHAGIA, OROPHARYNGEAL PHASE Status: Chronic - Plan Day 4/5 abx for aspiration pneumonia. Continuing with supplement oxygen. Continue the PEG feeds. Discussed disposition with family. See the ACP note. Daughter continues to have a difficult time coping. CM spoke wit her and gave a list of hospice organizations. When she narrows that, will have them come speak with her. Continue wound care to sacrum. Will get surgery to look at it and see if there is any indication for debridement. Family does not want pursue the lung nodule workup.
[2019-11-17] MEDS: Cefepime 2 GM in Sodium Chloride 0.9% 100 ML IVPB SCH ×2 (01:52→14:10)
[2019-11-17] MEDS: Sodium Chloride 0.9% 1,000 ML IV SCH ×2 (03:26→14:11)
[2019-11-17] MEDS: HumaLOG 300 UNITS/3 ML VIAL SC PRN ×2 (05:50→18:18)
[2019-11-17] MEDS: Enoxaparin Sodium 40 MG/0.4 ML SYRINGE SC SCH (08:10)
[2019-11-17] MEDS: predniSONE 20 MG TAB PER TUBE SCH ×2 (08:10→17:09)
[2019-11-17] MEDS: Aspirin Chewable 81 MG TAB PER TUBE SCH (08:10)
[2019-11-17] MEDS: Metoprolol Tartrate 25 MG TAB PER TUBE SCH ×2 (08:10→22:04)
[2019-11-17] MEDS: Insulin Glargine 18 UNITS in Pre-Filled Syringe 1 EACH SC SCH (08:10)
[2019-11-17] MEDS: Saccharomyces boulardii 250 MG CAP PER TUBE SCH ×2 (08:10→22:04)
[2019-11-17] MEDS: Famotidine 20 MG TAB PER TUBE SCH ×2 (08:10→22:05)
--- NOTE | 2019-11-17 21:11 | PDOC.HOSPP ---
- Subjective Encounter Date: 11/17/19 Subjective: About the same. Non-verbal. Daughter at the bedside talking with Palliative Care. - Objective Vital Signs & Weight: Vital Signs (12 hours) Temp Pulse Resp BP Pulse Ox 11/17/19 15:49 98.2 F 81 20 127/70 96 11/17/19 13:38 76 16 92 L 11/17/19 10:53 98.0 F 65 20 136/73 96 Weight Admit Weight 155 lb Weight 155 lb 9.6 oz Most Recent Monitor Data Heart Rate from ECG 101 NIBP 104/61 NIBP BP-Mean 75 Respiration from ECG 32 SpO2 96 I&O: 11/16/19 11/17/19 11/18/19 06:59 06:59 06:59 Intake Total 6060 2670 3095 Output Total 1050 3500 2350 Balance 5010 -830 745 Result Diagrams: 11/15/19 06:38 11/15/19 06:38 Additional Labs: Accuchecks 11/17/19 11/17/19 11/17/19 15:51 10:54 03:55 POC Glucose 190 H 128 H 220 H 11/16/19 22:02 POC Glucose 191 H Hospitalist ROS - Medication Medications: Active Medications Generic Name Dose Route Start Last Admin Trade Name Freq PRN Reason Stop Dose Admin Acetaminophen 650 mg 11/12/19 14:53 11/15/19 19:37 Tylenol PER TUBE 650 mg Q4H PRN Administration Headache/Fever/Mild Pain (1-3) Albuterol/Ipratropium 3 ml 11/12/19 19:00 11/17/19 19:19 Duoneb NEB 3 ml [id number] MIHIR Administration Aspirin 81 mg 11/17/19 09:00 11/17/19 08:10 Aspirin Chewable PER TUBE 81 mg DAILY MIHIR Administration Atorvastatin Calcium 40 mg 11/12/19 21:00 11/16/19 21:44 Lipitor PER TUBE 40 mg HS MIHIR Administration Cholecalciferol 5,000 units 11/13/19 09:00 11/17/19 08:09 Vitamin D3 PO 5,000 units DAILY MIHIR Administration Enoxaparin Sodium 40 mg 11/13/19 09:00 11/17/19 08:10 Lovenox SC 40 mg 0900 MIHIR Administration Famotidine 20 mg 11/12/19 21:00 11/17/19 08:10 Pepcid PER TUBE 20 mg BID MIHIR Administration Cefepime HCl 2 gm/ Sodium 100 mls @ 200 mls/hr 11/13/19 01:00 11/17/19 14:10 Chloride IVPB 100 mls 0100,1300 MIHIR Administration Levofloxacin 750 mg/ Device 150 mls @ 100 mls/hr 11/13/19 14:00 11/17/19 14: 10 IVPB 150 mls 1400 MIHIR Administration Insulin Glargine 18 units/ 0.18 mls @ 0 mls/hr 11/13/19 09:00 11/17/19 08:10 Miscellaneous Medication SC 0.18 mls QAM MIHIR Administration Sodium Chloride 1,000 mls @ 75 mls/hr 11/13/19 14:45 11/17/19 14:11 Normal Saline 0.9% IV 1,000 mls .[id number] MIHIR Administration Insulin Human Lispro 0 units 11/12/19 15:10 11/17/19 18:18 Humalog SC 2 unit .MILD SLIDING SCALE PRN Administration Mild Correctional Scale Metoprolol Tartrate 25 mg 11/12/19 21:00 11/17/19 08:10 Lopressor PER TUBE 25 mg BID MIHIR Administration Prednisone 20 mg 11/12/19 17:00 11/17/19 17:09 Prednisone PER TUBE 20 mg BID-WM MIHIR Administration Saccharomyces Boulardii 250 mg 11/12/19 21:00 11/17/19 08:10 Florastor PER TUBE 250 mg BID MIHIR Administration - Exam General Appearance: NAD, awake alert Heart: RRR, no murmur, no gallops, no rubs, normal peripheral pulses Respiratory: CTAB, no wheezes, no rales, no ronchi, normal chest expansion, no tachypnea, normal percussion Respiratory - other findings: Persistent upper airway secretion noise. Gastrointestinal: soft, non-tender, non-distended, normal bowel sounds, no palpable masses, no hepatomegaly, no splenomegaly, no bruit Gastrointestinal - other findings: PEG Neurological - other findings: Left hemiplegia. Psychiatric: normal affect, normal behavior, A&O x 3 Hosp A/P (1) Acute respiratory failure with hypoxia and hypercarbia Code(s): J96.01 - ACUTE RESPIRATORY FAILURE WITH HYPOXIA; J96.02 - ACUTE RESPIRATORY FAILURE WITH HYPERCAPNIA Status: Acute (2) Aspiration pneumonia Code(s): J69.0 - PNEUMONITIS DUE TO INHALATION OF FOOD AND VOMIT Status: Acute (3) Decubitus ulcer of buttock, unstageable Code(s): L89.300 - PRESSURE ULCER OF UNSPECIFIED BUTTOCK, UNSTAGEABLE Status: Acute (4) Pulmonary nodule Code(s): R91.1 - SOLITARY PULMONARY NODULE Status: Acute (5) Thyroid nodule Code(s): E04.1 - NONTOXIC SINGLE THYROID NODULE Status: Acute (6) H/O: CVA (cerebrovascular accident) Code(s): Z86.73 - PRSNL HX OF TIA (TIA), AND CEREB INFRC W/O RESID DEFICITS Status: Chronic (7) HTN (hypertension) Code(s): I10 - ESSENTIAL (PRIMARY) HYPERTENSION Status: Chronic Qualifiers: Hypertension type: essential hypertension Qualified Code(s): I10 - Essential (primary) hypertension (8) Moderate protein-calorie malnutrition Code(s): E44.0 - MODERATE PROTEIN-CALORIE MALNUTRITION Status: Chronic (9) Oropharyngeal dysphagia Code(s): R13.12 - DYSPHAGIA, OROPHARYNGEAL PHASE Status: Chronic (10) Hemiplegia affecting left nondominant side Code(s): G81.94 - HEMIPLEGIA, UNSPECIFIED AFFECTING LEFT NONDOMINANT SIDE Status: Acute Qualifiers: Hemiplegia etiology: late effect of cerebrovascular disease - Plan Day 01/26 abx for aspiration pneumonia. Continuing with supplement oxygen. He has had periods off oxygen and sats are good. Continue the PEG feeds. Discussed disposition with patient's daughter. Daughter continues to have a difficult time coping. CM spoke with her and gave a list of hospice organizations. She is apparently not ready to go that route yet. Reviewed the lung nodule. Has spiculations and concerning for cancer. She is in agreement to no pursue workup. He is not a candidate for intervention if it is a cancer. Continue wound care to sacrum. Will get surgery to look at it and see if there is any indication for debridement.
[2019-11-17] MEDS: Atorvastatin Calcium 40 MG TAB PER TUBE SCH (22:05)
--- NOTE | 2019-11-18 | CON ---
DATE OF CONSULTATION: HISTORY OF PRESENT ILLNESS: The patient is currently on the Medicine floor. He was admitted on 11/12/2019 for sepsis, acute hypoxic respiratory failure, type 2 diabetes, hypertension, dyslipidemia, and sacral decubitus ulcer. The patient was admitted initially to the [facility] for respiratory support as he has a history of COPD that was exacerbated by his sepsis. We were consulted today to evaluate his sacral decubitus ulcer. The patient is primarily A and O x1 and his family members were not at bedside, so my information was gleaned from his H and P, progress note, and his current nurse. The patient is a 74-year-old man, who was brought from the [facility], where he was admitted for chronic COPD; aspiration pneumonia; decubitus ulcers; and dysphagia, requiring PEG tube placement. The patient reportedly on the day of admission had drops in his oxygen saturations into the 80s and was brought to the emergency department in transfer to the [facility] on BiPAP. The patient was able to be weaned off this over the next couple of days and started on steroids. He is also started on antibiotics, primarily focused is likely respiratory issues with aspiration pneumonia. The patient had a significant sacral decubitus ulcer at admission. Wound care has been helping take care of the wound. Today, they noted that it was significantly larger and judging from the admission photos, it is likely that he had just continued tissue necrosis and areas that were previously red. ALLERGIES: CODEINE. HOME MEDICATIONS: 1. Tylenol. 2. Nystatin. 3. Senokot. 4. Flomax. 5. Ultram. 6. Aspirin. 7. Metoprolol. 8. Multivitamins. 9. Lipitor. PAST MEDICAL HISTORY: 1. Acute ischemic CVA. 2. Pulmonary nodule. 3. Skin lesion on right-sided chin. 4. Oropharyngeal dysphagia, status post PEG tube placement. 5. Cholelithiasis. 6. Aspiration pneumonia. 7. MSSA in sputum culture. 8. Sacral decubitus ulcer. PAST SURGICAL HISTORY: 1. EGD. 2. PEG tube placement. 3. Remote history of back surgery. FAMILY MEDICAL HISTORY: Significant for colon and lung cancer. SOCIAL HISTORY: He is a former smoker. There is no history of drug or alcohol abuse. His code status is DNAR. The patient was living at [facility]. PHYSICAL EXAMINATION: VITAL SIGNS: Blood pressure 147/86, heart rate 92, respirations 20, and oxygen saturations 93% on 2 L via nasal cannula. GENERAL: The patient is resting comfortably in bed. He was asleep at the time of my visit. He would briefly open his eyes for me. He did not follow any of my commands. The nurses say that he is intermittently like this. RESPIRATIONS: Nonlabored. HEART: Regular rate and rhythm. ABDOMEN: Soft, nontender with a PEG tube in place. Posteriorly, the patient has a Review of his wound photos show that he has at least 10 cm round sacral decubitus ulcer. It does cross the gluteal cleft and encroaches on the anus. EXTREMITIES: Neurovascularly intact x4. LABORATORY FINDINGS: The last labs were done on 11/15, show WBC of 7.7, hemoglobin 10.6, hematocrit 32.1, platelets 194. Sodium 136, potassium 4.3, chloride 109, CO2 of 21, BUN 18, creatinine 0.55, glucose 193. There were no radiographs to review regarding this. What appears to be an unstageable sacral decubitus ulcer with significant surrounding tissue breakdown in a debilitated 74-year-old man with significant comorbidities. PLAN: Plan will be to make the patient n.p.o. after midnight. In light of the patient's current state of health and the potential for a significant large procedure requiring general anesthesia, discussion with the family needs to be had before surgery. The patient is likely going to need a large wide excision to facilitate his debridement and the close proximity to his anus could possibly require something as extensive as a diverting colostomy. Again, the patient in this stage of health, this would be a tremendous risk and with his respiratory status at baseline being severe COPD and requiring BiPAP on this admission. Weaning from the ventilator could prove difficult. It is felt that this needs to be discussed with the family prior to scheduling the patient for surgery. We will make the patient n.p.o., which is essentially holding his tube feeds after midnight until is made. By nursing report, we are told that hospice evaluation has also taken place. Consultation was discussed with Dr. Harding prior to my dictation. Job ID: [id number]
[2019-11-18] MEDS: Cefepime 2 GM in Sodium Chloride 0.9% 100 ML IVPB SCH ×2 (01:05→13:59)
[2019-11-18] MEDS ORDERED: Cyanocobalamin 1000 MCG/ML VIAL IM SCH (09:00)
[2019-11-18] MEDS: Aspirin Chewable 81 MG TAB PER TUBE SCH (12:31)
[2019-11-18] MEDS: Enoxaparin Sodium 40 MG/0.4 ML SYRINGE SC SCH (12:31)
[2019-11-18] MEDS: predniSONE 20 MG TAB PER TUBE SCH ×2 (12:31→15:39)
[2019-11-18] MEDS: Metoprolol Tartrate 25 MG TAB PER TUBE SCH ×2 (12:32→20:22)
[2019-11-18] MEDS: Saccharomyces boulardii 250 MG CAP PER TUBE SCH ×2 (12:32→20:22)
[2019-11-18] MEDS: Insulin Glargine 18 UNITS in Pre-Filled Syringe 1 EACH SC SCH (12:32)
[2019-11-18] MEDS: Famotidine 20 MG TAB PER TUBE SCH ×2 (12:32→20:22)
[2019-11-18] MEDS: Sodium Chloride 0.9% 1,000 ML IV SCH ×2 (15:39→15:53)
[2019-11-18] MEDS: Acetaminophen 325 MG TAB PER TUBE PRN ×2 (15:40→20:22)
[2019-11-18] MEDS: Atorvastatin Calcium 40 MG TAB PER TUBE SCH (20:22)
--- NOTE | 2019-11-18 20:56 | PDOC.HOSPP ---
- Subjective Encounter Date: 11/18/19 Subjective: Doing about the same. He is awake and when asked if he is doing ok, he subtly nobs affirmative. - Objective Vital Signs & Weight: Vital Signs (12 hours) Temp Pulse Resp BP Pulse Ox 11/18/19 20:00 98.2 F 72 20 138/78 91 L 11/18/19 18:19 72 20 92 L 11/18/19 16:20 97.6 F 85 20 115/71 98 11/18/19 13:00 73 20 94 L 11/18/19 11:50 98.1 F 73 18 134/76 98 Weight Admit Weight 155 lb Weight 155 lb 9.6 oz Most Recent Monitor Data Heart Rate from ECG 101 NIBP 104/61 NIBP BP-Mean 75 Respiration from ECG 32 SpO2 96 I&O: 11/17/19 11/18/19 11/19/19 06:59 06:59 06:59 Intake Total 2670 4470 175 Output Total 3500 6250 Balance -830 -1780 175 Result Diagrams: 11/15/19 06:38 11/15/19 06:38 Additional Labs: Accuchecks 11/18/19 11/18/19 11/18/19 20:34 17:05 11:50 POC Glucose 169 H 141 H 104 11/18/19 11/17/19 03:56 21:17 POC Glucose 123 H 184 H Hospitalist ROS - Medication Medications: Active Medications Generic Name Dose Route Start Last Admin Trade Name Freq PRN Reason Stop Dose Admin Acetaminophen 650 mg 11/12/19 14:53 11/18/19 20:22 Tylenol PER TUBE 650 mg Q4H PRN Administration Headache/Fever/Mild Pain (1-3) Albuterol/Ipratropium 3 ml 11/12/19 19:00 11/18/19 18:19 Duoneb NEB 3 ml [id number] MIHIR Administration Aspirin 81 mg 11/17/19 09:00 11/18/19 12:31 Aspirin Chewable PER TUBE Not Given DAILY MIHIR Atorvastatin Calcium 40 mg 11/12/19 21:00 11/18/19 20:22 Lipitor PER TUBE 40 mg HS MIHIR Administration Cholecalciferol 5,000 units 11/13/19 09:00 11/17/19 08:09 Vitamin D3 PO 5,000 units DAILY MIHIR Administration Enoxaparin Sodium 40 mg 11/13/19 09:00 11/18/19 12:31 Lovenox SC Not Given 0900 [facility] Famotidine 20 mg 11/12/19 21:00 11/18/19 20:22 Pepcid PER TUBE 20 mg BID MIHIR Administration Cefepime HCl 2 gm/ Sodium 100 mls @ 200 mls/hr 11/13/19 01:00 11/18/19 13:59 Chloride IVPB 100 mls 0100,1300 MIHIR Administration Levofloxacin 750 mg/ Device 150 mls @ 100 mls/hr 11/13/19 14:00 11/18/19 13: 59 IVPB 150 mls 1400 MIHIR Administration Insulin Glargine 18 units/ 0.18 mls @ 0 mls/hr 11/13/19 09:00 11/18/19 12:32 Miscellaneous Medication SC Not Given QAM [facility] Sodium Chloride 1,000 mls @ 75 mls/hr 11/13/19 14:45 11/18/19 15:53 Normal Saline 0.9% IV 1,000 mls .[id number] MIHIR Administration Insulin Human Lispro 0 units 11/12/19 15:10 11/17/19 18:18 Humalog SC 2 unit .MILD SLIDING SCALE PRN Administration Mild Correctional Scale Metoprolol Tartrate 25 mg 11/12/19 21:00 11/18/19 20:22 Lopressor PER TUBE 25 mg BID MIHIR Administration Prednisone 20 mg 11/12/19 17:00 11/18/19 15:39 Prednisone PER TUBE 20 mg BID-WM MIHIR Administration Saccharomyces Boulardii 250 mg 11/12/19 21:00 11/18/19 20:22 Florastor PER TUBE 250 mg BID MIHIR Administration - Exam General Appearance: NAD, awake alert Heart: RRR, no murmur, no gallops, no rubs, normal peripheral pulses Respiratory: CTAB, no wheezes, no rales, no ronchi, normal chest expansion, no tachypnea, normal percussion Gastrointestinal: soft, non-tender, non-distended, normal bowel sounds, no palpable masses, no hepatomegaly, no splenomegaly, no bruit Extremities: no cyanosis, no clubbing, no edema Musculoskeletal: normal tone Psychiatric: normal affect, normal behavior, A&O x 3 Hosp A/P (1) Acute respiratory failure with hypoxia and hypercarbia Code(s): J96.01 - ACUTE RESPIRATORY FAILURE WITH HYPOXIA; J96.02 - ACUTE RESPIRATORY FAILURE WITH HYPERCAPNIA Status: Acute (2) Aspiration pneumonia Code(s): J69.0 - PNEUMONITIS DUE TO INHALATION OF FOOD AND VOMIT Status: Acute (3) Decubitus ulcer of buttock, unstageable Code(s): L89.300 - PRESSURE ULCER OF UNSPECIFIED BUTTOCK, UNSTAGEABLE Status: Acute (4) Pulmonary nodule Code(s): R91.1 - SOLITARY PULMONARY NODULE Status: Acute (5) Thyroid nodule Code(s): E04.1 - NONTOXIC SINGLE THYROID NODULE Status: Acute (6) H/O: CVA (cerebrovascular accident) Code(s): Z86.73 - PRSNL HX OF TIA (TIA), AND CEREB INFRC W/O RESID DEFICITS Status: Chronic (7) HTN (hypertension) Code(s): I10 - ESSENTIAL (PRIMARY) HYPERTENSION Status: Chronic Qualifiers: Hypertension type: essential hypertension Qualified Code(s): I10 - Essential (primary) hypertension (8) Moderate protein-calorie malnutrition Code(s): E44.0 - MODERATE PROTEIN-CALORIE MALNUTRITION Status: Chronic (9) Oropharyngeal dysphagia Code(s): R13.12 - DYSPHAGIA, OROPHARYNGEAL PHASE Status: Chronic (10) Hemiplegia affecting left nondominant side Code(s): G81.94 - HEMIPLEGIA, UNSPECIFIED AFFECTING LEFT NONDOMINANT SIDE Status: Acute Qualifiers: 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 Continuing with supplement oxygen. Intermittent hypoxia. Continue the PEG feeds. Discussed disposition with patient's daughter. CM spoke with her and gave a list of hospice organizations. She is apparently not ready to go that route yet. Reviewed the lung nodule. Has spiculations and concerning for cancer. She is in agreement to not pursue workup. He is not a candidate for intervention if it is a cancer. Continue wound care to sacrum. Surgery has seen him for the wound and could attempt an aggressive surgery with a significant degree of risk given his overall medical situation. Apparently, the family has consented to this. Feeds held.
[2019-11-19] MEDS: Sodium Chloride 0.9% 1,000 ML IV SCH ×2 (02:55→19:45)
[2019-11-19] MEDS: Metoprolol Tartrate 25 MG TAB PER TUBE SCH ×2 (05:30→19:45)
[2019-11-19 05:32] LABS: INR-International Normal Ratio 1.1; Prothrombin Time 14.4 SEC (12.0-14.7)
[2019-11-19 05:33] LABS: Band 1 % (5-11); Eosinophils 1 % (0-10); Hemoglobin 12.4 g/dL (14.0-18.0); Lymphocytes 23 % (21-51); MDiff Complete? YES; Mean Corpuscular Hemoglobin 29.2 pg (27.0-31.0); Mean Corpuscular Volume 88.4 fL (78.0-98.0); Mean Platelet Volume 9.7 fL (7.4-10.4); Metamyelocyte 1 % (0-0); Monocytes 7 % (0-10); Neutrophil 65 % (42-75); Platelet Count 222 thou/uL (130-400); Platelet Morphology Comment Appears Adequate; RBC Distribution Width 13.6 % (11.5-14.5); Reactive Lymphocytes 2 % (0-10); Red Blood Cell (RBC) Count 4.25 mill/uL (4.70-6.10); White Blood Cell (WBC) Count 11.9 thou/uL (4.8-10.8)
[2019-11-19 05:50] LABS: Anion Gap 10 mmol/L (10-20); BUN (Urea Nitrogen) 15 mg/dL (8.4-25.7); Calc. Creatinine Clearance 120 mL/min (70-130); Calcium 8.5 mg/dL (7.8-10.44); Carbon Dioxide 22 mmol/L (23-31); Chloride 107 mmol/L (98-107); Estimated GFR-MDRD Greater than 90; Glucose 161 mg/dL (83-110); Magnesium 1.8 mg/dL (1.6-2.6); Phosphorus 3.5 mg/dL (2.3-4.7); Potassium 4.3 mmol/L (3.5-5.1); Sodium 135 mmol/L (136-145)
[2019-11-19] MEDS: Enoxaparin Sodium 40 MG/0.4 ML SYRINGE SC SCH (09:17)
[2019-11-19] MEDS: Famotidine 20 MG TAB PER TUBE SCH ×2 (09:17→19:45)
[2019-11-19] MEDS: Insulin Glargine 18 UNITS in Pre-Filled Syringe 1 EACH SC SCH (09:17)
[2019-11-19] MEDS: Aspirin Chewable 81 MG TAB PER TUBE SCH (09:17)
[2019-11-19] MEDS: Saccharomyces boulardii 250 MG CAP PER TUBE SCH ×2 (09:18→19:45)
[2019-11-19] MEDS: predniSONE 20 MG TAB PER TUBE SCH (09:18)
[2019-11-19] MEDS ORDERED: Lidocaine 1% PF 5 ML VIAL ONE (10:12)
[2019-11-19] MEDS ORDERED: PHENYLEPHRINE-NS 100 MCG/ML 10 ML SYRINGE ONE (10:12)
[2019-11-19] MEDS ORDERED: PROPOFOL 200 MG/20 ML VIAL ONE (10:12)
[2019-11-19] MEDS ORDERED: Rocuronium Bromide 10 MG/ML (10ML VIAL) ONE (10:12)
[2019-11-19] MEDS ORDERED: Labetalol HCl 100 MG/20 ML VIAL ONE (10:12)
[2019-11-19] MEDS ORDERED: Fentanyl 100 MCG/2 ML VIAL ONE (10:54)
[2019-11-19] MEDS ORDERED: Dexmedetomidine 200 MCG/2 ML VIAL ONE (11:06)
--- NOTE | 2019-11-19 11:32 | PDOC.PALPN ---
Palliative Progress Note - Subjective Awake, awaiting surgical procedure for wound. Phone call with son, family at bedside. - Objective Vital Signs: Vital Signs - Most Recent Temp Pulse Resp BP Pulse Ox 98.1 F 78 20 128/82 97 11/19/19 08:00 11/19/19 08:00 11/19/19 08:00 11/19/19 08:00 11/19/19 08:00 - Physical Exam Constitutional: NAD, ill appearing HEENT: moist MMs, sclera anicteric Respiratory: no wheezing, unlabored breathing Cardiovascular: RRR Gastrointestinal: soft, non-tender Deviation from normal: PEG Skin: cap refill <2 seconds Deviation from normal: Chronic sacral wound Psychiatric: A&O x 3 - Assessment (1) Palliative care encounter Code(s): Z51.5 - ENCOUNTER FOR PALLIATIVE CARE Current Visit: Yes Status: Acute (2) Physical deconditioning Code(s): R53.81 - OTHER MALAISE Current Visit: Yes Status: Acute (3) Acute respiratory failure with hypoxia and hypercarbia Code(s): J96.01 - ACUTE RESPIRATORY FAILURE WITH HYPOXIA; J96.02 - ACUTE RESPIRATORY FAILURE WITH HYPERCAPNIA Current Visit: No Status: Acute (4) Aspiration pneumonia Code(s): J69.0 - PNEUMONITIS DUE TO INHALATION OF FOOD AND VOMIT Current Visit : No Status: Acute (5) COPD with acute exacerbation Code(s): J44.1 - CHRONIC OBSTRUCTIVE PULMONARY DISEASE W (ACUTE) EXACERBATION Current Visit: No Status: Acute (6) Moderate protein-calorie malnutrition Code(s): E44.0 - MODERATE PROTEIN-CALORIE MALNUTRITION Current Visit: No Status: Chronic (7) Oropharyngeal dysphagia Code(s): R13.12 - DYSPHAGIA, OROPHARYNGEAL PHASE Current Visit: No Status: Chronic - Plan Plan: Patient NPO for surgery related to chronic wound to sacrum. Family at bedside, daughter tearful. Patient able to visit with a son via phone he has not communicated with in several years. Family understanding of decline, but daughter at this time is not agreeable to transition to Hospice care. She understands the risk involved with surgery, and does not desire to have further management/inquiry for identified lung nodule. Emotional support and therapeutic listening. Revisited Hospice, what they provide and that it is not a lack of health care, but rather in lieu of aggressive treatment it is symptom management. Discussed quality of life verses length. Spiritual Care to follow up and offer further emotional and spiritual support. [40] minutes spent on this encounter with >50% of the time in counseling and coordination of care. - ROS Constitutional: weakness ENT: difficulty swallowing Skin: wounds
[2019-11-19] MEDS ORDERED: Neomycin-Polymyxin 1 ML AMP ONE (11:44)
[2019-11-19] MEDS ORDERED: SUGAMMADEX SODIUM 500 MG/5 ML VIAL ONE (13:00)
[2019-11-19] MEDS ORDERED: Promethazine HCl 25 MG/ML VIAL SLOW IVP PRN (13:39)
[2019-11-19] MEDS ORDERED: Promethazine HCl 25 MG/ML VIAL IM PRN (13:39)
[2019-11-19] MEDS ORDERED: Ondansetron HCl/PF 4 MG/2 ML Vial IVP PRN (13:39)
--- NOTE | 2019-11-19 13:50 | OP ---
DATE OF PROCEDURE: 11/19/2019 PREOPERATIVE DIAGNOSIS: An 11 x 8 x 2 cm stage IV sacral decubitus ulcer. POSTOPERATIVE DIAGNOSIS: An 11 x 8 x 2 cm stage IV sacral decubitus ulcer. OPERATION PERFORMED: Excisional debridement of 11 x 8 x 2 cm stage IV sacral decubitus ulcer. ANESTHESIA: General endotracheal. ESTIMATED BLOOD LOSS: Less than 10 mL. FLUIDS GIVEN: 650 mL of crystalloids. COUNTS: Sponge and instrument counts were verified as correct x2. COMPLICATIONS: None apparent at the time of operation. INDICATIONS FOR OPERATION: A 74-year-old debilitated man was seen in consultation. The patient was noted with 11 x 8 x 2 cm foul-smelling stage IV sacral decubitus ulcer, requiring debridement. The patient is brought to the operating room for excisional debridement. Findings are consistent with a stage IV sacral decubitus ulcer. The most inferior aspect of the wound is approximately 4 cm from the anal verge. DESCRIPTION OF PROCEDURE: Informed consent was obtained from the patient and his power of heel curver. The patient was brought to the operating room and placed in supine position. Following general anesthesia, the patient was placed in a prone position on [id number]. The sacral and gluteal regions were widely sterilely prepped and draped in usual fashion. The 11 x 8 x 2 cm foul-smelling sacral decubitus ulcer was noted. The wound was circumferentially excised down to the sacral bone and passed off the operative field for transmission to Pathology. Bleeding points were controlled using cautery. It was noted that the ulcer does not extend beyond the periosteum of the sacrum. Once adequate hemostasis was achieved, the wound bed was copiously irrigated with saline. Temporary closure was obtained using wound VAC. The patient tolerated the procedure without any apparent complication and was returned to recovery room in critical, but stable condition. Job ID: [id number]
[2019-11-19] MEDS: Piperacillin/Tazobactam 3.375 GM in Sodium Chloride 0.9% 100 ML IVPB SCH ×2 (18:27→23:23)
[2019-11-19] MEDS: Acetaminophen 325 MG TAB PER TUBE PRN (19:44)
[2019-11-19] MEDS: Atorvastatin Calcium 40 MG TAB PER TUBE SCH (19:44)
--- NOTE | 2019-11-19 22:42 | PDOC.HOSPP ---
- Subjective Encounter Date: 11/19/19 Subjective: Non-verbal. Denies problems with head gestures. - Objective Vital Signs & Weight: Vital Signs (12 hours) Temp Pulse Resp BP BP Pulse Ox 11/19/19 20:29 100 11/19/19 20:00 98.0 F 61 20 149/69 H 100 11/19/19 18:19 58 L 20 100 11/19/19 15:10 98.1 F 70 18 133/74 95 Weight Admit Weight 155 lb Weight 155 lb 9.6 oz Most Recent Monitor Data Heart Rate from ECG 101 NIBP 104/61 NIBP BP-Mean 75 Respiration from ECG 32 SpO2 96 I&O: 11/18/19 11/19/19 11/20/19 06:59 06:59 06:59 Intake Total 4470 1470 175 Output Total 6250 1700 Balance -1780 -230 175 Result Diagrams: 11/19/19 05:08 11/19/19 05:08 Additional Labs: Accuchecks 11/19/19 11/19/19 11/19/19 20:21 17:28 04:46 POC Glucose 126 H 111 H 160 H Hospitalist ROS - Medication Medications: Active Medications Generic Name Dose Route Start Last Admin Trade Name Freq PRN Reason Stop Dose Admin Acetaminophen 650 mg 11/12/19 14:53 11/19/19 19:44 Tylenol PER TUBE 650 mg Q4H PRN Administration Headache/Fever/Mild Pain (1-3) Albuterol/Ipratropium 3 ml 11/12/19 19:00 11/19/19 18:19 Duoneb NEB 3 ml [id number] MIHIR Administration Aspirin 81 mg 11/17/19 09:00 11/19/19 09:17 Aspirin Chewable PER TUBE Not Given DAILY [facility] Atorvastatin Calcium 40 mg 11/12/19 21:00 11/19/19 19:44 Lipitor PER TUBE 40 mg HS MIHIR Administration Cholecalciferol 5,000 units 11/13/19 09:00 11/19/19 09:17 Vitamin D3 PO Not Given DAILY [facility] Enoxaparin Sodium 40 mg 11/13/19 09:00 11/19/19 09:17 Lovenox SC Not Given 0900 [facility] Famotidine 20 mg 11/12/19 21:00 11/19/19 19:45 Pepcid PER TUBE 20 mg BID MIHIR Administration Insulin Glargine 18 units/ 0.18 mls @ 0 mls/hr 11/13/19 09:00 11/19/19 09:17 Miscellaneous Medication SC Not Given QAM [facility] Sodium Chloride 1,000 mls @ 75 mls/hr 11/13/19 14:45 11/19/19 19:45 Normal Saline 0.9% IV Not Given .[id number] MIHIR Piperacillin Sod/Tazobactam 100 mls @ 200 mls/hr 11/19/19 18:00 11/19/19 18: 27 Sod 3.375 gm/ Sodium Chloride IVPB 100 mls Q6HR MIHIR Administration Insulin Human Lispro 0 units 11/12/19 15:10 11/17/19 18:18 Humalog SC 2 unit .MILD SLIDING SCALE PRN Administration Mild Correctional Scale Metoprolol Tartrate 25 mg 11/12/19 21:00 11/19/19 19:45 Lopressor PER TUBE 25 mg BID MIHIR Administration Prednisone 20 mg 11/19/19 09:00 11/19/19 09:18 Prednisone PER TUBE Not Given DAILY [facility] Saccharomyces Boulardii 250 mg 11/12/19 21:00 11/19/19 19:45 Florastor PER TUBE 250 mg BID MIHIR Administration - Exam General Appearance: NAD, awake alert Heart: RRR, no murmur, no gallops, no rubs, normal peripheral pulses Respiratory: CTAB, no wheezes, no rales, no ronchi, normal chest expansion, no tachypnea, normal percussion Gastrointestinal: soft, non-tender, non-distended, normal bowel sounds, no palpable masses, no hepatomegaly, no splenomegaly, no bruit Gastrointestinal - other findings: PEG Extremities: no cyanosis, no clubbing, no edema Skin: normal turgor, no lesions, no rashes Musculoskeletal - other findings: Left hemiplegia Psychiatric: flat affect Hosp A/P (1) Acute respiratory failure with hypoxia and hypercarbia Code(s): J96.01 - ACUTE RESPIRATORY FAILURE WITH HYPOXIA; J96.02 - ACUTE RESPIRATORY FAILURE WITH HYPERCAPNIA Status: Acute (2) Aspiration pneumonia Code(s): J69.0 - PNEUMONITIS DUE TO INHALATION OF FOOD AND VOMIT Status: Acute (3) Decubitus ulcer of buttock, unstageable Code(s): L89.300 - PRESSURE ULCER OF UNSPECIFIED BUTTOCK, UNSTAGEABLE Status: Acute (4) Pulmonary nodule Code(s): R91.1 - SOLITARY PULMONARY NODULE Status: Acute (5) Thyroid nodule Code(s): E04.1 - NONTOXIC SINGLE THYROID NODULE Status: Acute (6) H/O: CVA (cerebrovascular accident) Code(s): Z86.73 - PRSNL HX OF TIA (TIA), AND CEREB INFRC W/O RESID DEFICITS Status: Chronic (7) HTN (hypertension) Code(s): I10 - ESSENTIAL (PRIMARY) HYPERTENSION Status: Chronic Qualifiers: Hypertension type: essential hypertension Qualified Code(s): I10 - Essential (primary) hypertension (8) Moderate protein-calorie malnutrition Code(s): E44.0 - MODERATE PROTEIN-CALORIE MALNUTRITION Status: Chronic (9) Oropharyngeal dysphagia Code(s): R13.12 - DYSPHAGIA, OROPHARYNGEAL PHASE Status: Chronic (10) Hemiplegia affecting left nondominant side Code(s): G81.94 - HEMIPLEGIA, UNSPECIFIED AFFECTING LEFT NONDOMINANT SIDE Status: Acute Qualifiers: 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 Continuing with supplement oxygen. Intermittent hypoxia. Continue the PEG feeds. Discussed disposition with patient's daughter. CM spoke with her and gave a list of hospice organizations. She is apparently not ready to go that route yet. Reviewed the lung nodule. Has spiculations and concerning for cancer. She is in agreement to not pursue workup. He is not a candidate for intervention if it is a cancer. Surgical intervention of the sacral decubitus ulcer. Discussed with surg. Did not require diverting colostomy.
--- NOTE | 2019-11-20 00:55 | PRG ---
DATE OF SERVICE: 11/19/2019 SUBJECTIVE: The patient was seen this evening during rounds. He was sitting up in bed, alert with no signs of acute distress. He is postoperative day 0 after debridement of his decubitus sacral wound by Dr. Harding. OBJECTIVE: VITAL SIGNS: Temperature 97.8, pulse 65, respirations 20, oxygen saturation 97% on 2 L nasal cannula, and blood pressure 116/74. GENERAL: Well-appearing elderly male, sitting up in bed, awake and alert with no signs of acute distress. PULMONARY: Equal chest rise and fall. No signs of acute respiratory distress. ASSESSMENT: Status post debridement of sacral decubitus ulcer, stage IV. PLAN: Continue tube feeds through PEG tube. Continue wound care. Medical management per hospitalist team, Dr. Harding. We will re-evaluate the wound during rounds during day shift. Job ID: [id number]
[2019-11-20] MEDS: Sodium Chloride 0.9% 1,000 ML IV SCH ×2 (03:25→17:15)
[2019-11-20] MEDS: Piperacillin/Tazobactam 3.375 GM in Sodium Chloride 0.9% 100 ML IVPB SCH ×4 (05:52→23:50)
[2019-11-20 06:02] LABS: #Basophils 0.1 thou/uL (0.0-0.2); #Eosinphils 0.7 thou/uL (0.0-0.7); #Lymphocytes 3.1 thou/uL (1.20-3.40); #Monocytes 0.9 thou/uL (0.11-0.59); %Eosinophils 6.6 % (0.0-10.0); %Lymphocytes 28.6 % (21.0-51.0); %Neutrophils 55.8 % (42.0-75.0); Hemoglobin 11.5 g/dL (14.0-18.0); Mean Corpuscular HGB CONC 32.9 g/dL (32.0-36.0); Mean Corpuscular Hemoglobin 29.1 pg (27.0-31.0); Mean Corpuscular Volume 88.4 fL (78.0-98.0); Mean Platelet Volume 9.8 fL (7.4-10.4); Platelet Count 207 thou/uL (130-400); RBC Distribution Width 13.5 % (11.5-14.5); Red Blood Cell (RBC) Count 3.96 mill/uL (4.70-6.10); White Blood Cell (WBC) Count 10.8 thou/uL (4.8-10.8)
[2019-11-20 06:20] LABS: Anion Gap 9 mmol/L (10-20); BUN (Urea Nitrogen) 14 mg/dL (8.4-25.7); Calc. Creatinine Clearance 123 mL/min (70-130); Carbon Dioxide 25 mmol/L (23-31); Chloride 107 mmol/L (98-107); Estimated GFR-MDRD Greater than 90; Glucose 153 mg/dL (83-110); Magnesium 1.8 mg/dL (1.6-2.6); Phosphorus 3.1 mg/dL (2.3-4.7); Sodium 137 mmol/L (136-145)
[2019-11-20] MEDS: Aspirin Chewable 81 MG TAB PER TUBE SCH (08:12)
[2019-11-20] MEDS: Metoprolol Tartrate 25 MG TAB PER TUBE SCH ×2 (08:12→21:03)
[2019-11-20] MEDS: Saccharomyces boulardii 250 MG CAP PER TUBE SCH ×2 (08:13→21:03)
[2019-11-20] MEDS: Famotidine 20 MG TAB PER TUBE SCH ×2 (08:13→21:03)
[2019-11-20] MEDS: predniSONE 20 MG TAB PER TUBE SCH (08:13)
[2019-11-20] MEDS: Enoxaparin Sodium 40 MG/0.4 ML SYRINGE SC SCH (08:13)
[2019-11-20] MEDS: Insulin Glargine 18 UNITS in Pre-Filled Syringe 1 EACH SC SCH (08:13)
[2019-11-20] MEDS ORDERED: VANCOMYCIN IVPB PRN (09:52)
--- NOTE | 2019-11-20 10:56 | PDOC.GSPN ---
Surgery Progress Note: Subj - Subjective Narrative: Patient is POD #1, S/P excisional debridement of a stage IV sacral decubitus ulcer with wound vac placement. In the OR, patient was seen to have large amounts of purulent sputum production and was started on Zosyn for suspected aspiration pneumonia. Cultures were sent. Patient is doing well at bedside this morning, although is non verbal. Does not appear to be in uncontrollable pain, is breathing comfortably with normal respiratory effort. Wound bed will be reevaluated during wound vac change. Surgery Progress Note: Obj - Vital signs Vital signs: Vital Signs - Most Recent Temp Pulse Resp BP Pulse Ox 97.6 F 75 20 114/57 L 100 11/20/19 09:00 11/20/19 09:00 11/20/19 09:00 11/20/19 04:00 11/20/19 09:00 - Physical Exam General: no distress Cardiovascular: regular rate and rhythm Respiratory: normal respiratory effort, breath sounds present, other (Mild rales in bilateral upper lobes) Abdomen: soft, non tender, nondistended, positive bowel sounds Psychiatric: other (Nonverbal during examination, Awake) Surgery Progress Note: Results - Labs Result Diagrams: 11/20/19 05:46 11/20/19 05:46 Lab results: Laboratory Results - last 24 hr 11/20/19 11/20/19 11/20/19 04:11 05:46 05:46 WBC 10.8 RBC 3.96 L Hgb 11.5 L Hct 35.0 L MCV 88.4 MCH 29.1 MCHC 32.9 RDW 13.5 Plt Count 207 MPV 9.8 Neutrophils % 55.8 Lymphocytes % 28.6 Monocytes % 8.0 Eosinophils % 6.6 Basophils % 1.0 Neutrophils # 6.0 Lymphocytes # 3.1 Monocytes # 0.9 H Eosinophils # 0.7 Basophils # 0.1 Sodium 137 Potassium 4.0 Chloride 107 Carbon Dioxide 25 Anion Gap 9 L BUN 14 Creatinine 0.52 L Estimated GFR (MDRD) Greater than 90 Glucose 153 H POC Glucose 172 H Calcium 8.0 Phosphorus 3.1 Magnesium 1.8 Surgery Progress Note: A/P - Plan Plan: Assessment: 1. Sacral decubitus ulcer, Stage IV, s/p debridement and wound vac placement 2. Aspiration pneumonia 3. Acute respiratory failure with hypoxia and hyercarbia, managed by primary team 4. Hx of CVA, HTN, moderate malnutrition, oropharyngeal dysphagia, L hemiplegia , and thryoid nodule Plan: Vancomycin was added to abx regimen based upon preliminary results of respiratory cultures sent from the OR yesterday. Patient appears to have pain well managed and wound vac is in place. Will re-evaluate wound bed at wound vac change with wound care team. Patient was seen at bedside on morning rounds this morning. Plan was discussed with Dr Harding during morning report Addendum - Physician - Physician Attestation Date/Time: 11/21/19 1920 I personally performed or re-performed the physical examination and medical decision making. I have verified all student documentation or findings, including history, physical exam and/or medical decision making.
[2019-11-20] MEDS: Vancomycin HCl 1 GM in Premix Bag 1 BAG IVPB SCH ×2 (11:06→21:03)
[2019-11-20] MEDS ORDERED: Lidocaine 4% Topical Sol 50 ML BOT TOP PRN ×2 (11:37→11:40)
--- NOTE | 2019-11-20 14:44 | PDOC.HOSPP ---
- Subjective Encounter Date: 11/20/19 Subjective: Non-verbal, but indicates he is doing ok. - Objective Vital Signs & Weight: Vital Signs (12 hours) Temp Pulse Resp BP Pulse Ox 11/20/19 14:09 71 16 97 11/20/19 09:00 97.6 F 75 20 100 11/20/19 08:00 100 11/20/19 07:06 89 16 97 11/20/19 04:00 98.0 F 87 20 114/57 L 100 Weight Admit Weight 155 lb Weight 155 lb 9.6 oz Most Recent Monitor Data Heart Rate from ECG 101 NIBP 104/61 NIBP BP-Mean 75 Respiration from ECG 32 SpO2 96 I&O: 11/19/19 11/20/19 11/21/19 06:59 06:59 06:59 Intake Total 1470 2400 Output Total 1700 950 Balance -230 1450 Result Diagrams: 11/20/19 05:46 11/20/19 05:46 Additional Labs: Accuchecks 11/20/19 11/20/19 11/19/19 11:33 04:11 20:21 POC Glucose 184 H 172 H 126 H 11/19/19 17:28 POC Glucose 111 H Hospitalist ROS - Medication Medications: Active Medications Generic Name Dose Route Start Last Admin Trade Name Freq PRN Reason Stop Dose Admin Acetaminophen 650 mg 11/12/19 14:53 11/19/19 19:44 Tylenol PER TUBE 650 mg Q4H PRN Administration Headache/Fever/Mild Pain (1-3) Albuterol/Ipratropium 3 ml 11/12/19 19:00 11/20/19 14:09 Duoneb NEB 3 ml [id number] MIHIR Administration Aspirin 81 mg 11/17/19 09:00 11/20/19 08:12 Aspirin Chewable PER TUBE 81 mg DAILY MIHIR Administration Atorvastatin Calcium 40 mg 11/12/19 21:00 11/19/19 19:44 Lipitor PER TUBE 40 mg HS MIHIR Administration Cholecalciferol 5,000 units 11/13/19 09:00 11/20/19 08:11 Vitamin D3 PO 5,000 units DAILY MIHIR Administration Enoxaparin Sodium 40 mg 11/13/19 09:00 11/20/19 08:13 Lovenox SC 40 mg 0900 MIHIR Administration Famotidine 20 mg 11/12/19 21:00 11/20/19 08:13 Pepcid PER TUBE 20 mg BID MIHIR Administration Insulin Glargine 18 units/ 0.18 mls @ 0 mls/hr 11/13/19 09:00 11/20/19 08:13 Miscellaneous Medication SC 0.18 mls QAM MIHIR Administration Sodium Chloride 1,000 mls @ 75 mls/hr 11/13/19 14:45 11/20/19 03:25 Normal Saline 0.9% IV 1,000 mls .[id number] MIHIR Administration Piperacillin Sod/Tazobactam 100 mls @ 200 mls/hr 11/19/19 18:00 11/20/19 12: 15 Sod 3.375 gm/ Sodium Chloride IVPB 100 mls Q6HR MIHIR Administration Vancomycin HCl 1 gm/ Device 200 mls @ 200 mls/hr 11/20/19 10:00 11/20/19 11: 06 IVPB 200 mls 1000,2200 MIHIR Administration Insulin Human Lispro 0 units 11/12/19 15:10 11/17/19 18:18 Humalog SC 2 unit .MILD SLIDING SCALE PRN Administration Mild Correctional Scale Metoprolol Tartrate 25 mg 11/12/19 21:00 11/20/19 08:12 Lopressor PER TUBE 25 mg BID MIHIR Administration Prednisone 20 mg 11/19/19 09:00 11/20/19 08:13 Prednisone PER TUBE 20 mg DAILY MIHIR Administration Saccharomyces Boulardii 250 mg 11/12/19 21:00 11/20/19 08:13 Florastor PER TUBE 250 mg BID MIHIR Administration - Exam General Appearance: NAD, awake alert ENT - other findings: Ulcerated lesion on the chin (likely skin cancer) Heart: RRR, no murmur, no gallops, no rubs, normal peripheral pulses Respiratory: CTAB, no wheezes, no rales, no ronchi, normal chest expansion, no tachypnea, normal percussion Gastrointestinal: soft, non-tender, non-distended, normal bowel sounds, no palpable masses, no hepatomegaly, no splenomegaly, no bruit Extremities: no cyanosis, no clubbing, no edema Neurological - other findings: Left hemiplegia, expressive aphasia. Musculoskeletal: generalized weakness, diffuse muscle atrophy Hosp A/P (1) Acute respiratory failure with hypoxia and hypercarbia Code(s): J96.01 - ACUTE RESPIRATORY FAILURE WITH HYPOXIA; J96.02 - ACUTE RESPIRATORY FAILURE WITH HYPERCAPNIA Status: Acute (2) Aspiration pneumonia Code(s): J69.0 - PNEUMONITIS DUE TO INHALATION OF FOOD AND VOMIT Status: Acute (3) Decubitus ulcer of buttock, unstageable Code(s): L89.300 - PRESSURE ULCER OF UNSPECIFIED BUTTOCK, UNSTAGEABLE Status: Acute (4) Pulmonary nodule Code(s): R91.1 - SOLITARY PULMONARY NODULE Status: Acute (5) Thyroid nodule Code(s): E04.1 - NONTOXIC SINGLE THYROID NODULE Status: Acute (6) H/O: CVA (cerebrovascular accident) Code(s): Z86.73 - PRSNL HX OF TIA (TIA), AND CEREB INFRC W/O RESID DEFICITS Status: Chronic (7) HTN (hypertension) Code(s): I10 - ESSENTIAL (PRIMARY) HYPERTENSION Status: Chronic Qualifiers: Hypertension type: essential hypertension Qualified Code(s): I10 - Essential (primary) hypertension (8) Moderate protein-calorie malnutrition Code(s): E44.0 - MODERATE PROTEIN-CALORIE MALNUTRITION Status: Chronic (9) Oropharyngeal dysphagia Code(s): R13.12 - DYSPHAGIA, OROPHARYNGEAL PHASE Status: Chronic (10) Hemiplegia affecting left nondominant side Code(s): G81.94 - HEMIPLEGIA, UNSPECIFIED AFFECTING LEFT NONDOMINANT SIDE Status: Acute Qualifiers: 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 Continuing with supplement oxygen. Intermittent hypoxia. Had large amount of drainage of fluid from the respiratory tract when turned prone for surgery. Cultures are negative. Gram stain largely negative. Likely retained secretions and feeds. High risk of recurrent aspiration. Continue the PEG feeds. Discussed disposition with patient's daughter. CM spoke with her and gave a list of hospice organizations. She is apparently not ready to go that route yet. Reviewed the lung nodule. Has spiculations and concerning for cancer. She is in agreement to not pursue workup. He is not a candidate for intervention if it is a cancer. Surgical intervention of the sacral decubitus ulcer. Discussed with surg. Did not require diverting colostomy. Wound Vac in place. May be able to consider going back to SNF with wound care soon.
[2019-11-20] MEDS: HumaLOG 300 UNITS/3 ML VIAL SC PRN (17:10)
[2019-11-20] MEDS: Atorvastatin Calcium 40 MG TAB PER TUBE SCH (21:03)
--- NOTE | 2019-11-20 23:57 | PRG ---
DATE OF SERVICE: 11/20/2019 SUBJECTIVE: The patient was seen during evening rounds. He was sitting up in bed, resting comfortably and asleep with no signs of acute distress. Nursing reported no acute events. OBJECTIVE: VITAL SIGNS: Temperature 97.6, pulse 105, respirations 18, oxygen saturation 95% on room air, blood pressure 117/66. GENERAL: Elderly male, sitting up in bed, asleep, but no signs of acute distress. PULMONARY: Equal chest rise and fall. No signs of acute respiratory distress. ASSESSMENT: Postop day 2, status post debridement of the sacral decubitus ulcer. PLAN: Continue wound VAC placement. Surgery Team to re-evaluate wound when Wound Care changes VAC. Continue antibiotics. Job ID: [id number]
[2019-11-21] MEDS: HumaLOG 300 UNITS/3 ML VIAL SC PRN ×2 (01:22→17:35)
[2019-11-21] MEDS: Piperacillin/Tazobactam 3.375 GM in Sodium Chloride 0.9% 100 ML IVPB SCH ×3 (05:30→17:35)
[2019-11-21] MEDS: Insulin Glargine 18 UNITS in Pre-Filled Syringe 1 EACH SC SCH (08:32)
[2019-11-21] MEDS: Enoxaparin Sodium 40 MG/0.4 ML SYRINGE SC SCH (08:32)
[2019-11-21] MEDS: Saccharomyces boulardii 250 MG CAP PER TUBE SCH ×2 (08:33→20:42)
[2019-11-21] MEDS: Famotidine 20 MG TAB PER TUBE SCH ×2 (08:33→20:41)
[2019-11-21] MEDS: Metoprolol Tartrate 25 MG TAB PER TUBE SCH ×2 (08:33→20:41)
[2019-11-21] MEDS: Acetaminophen 325 MG TAB PER TUBE PRN (08:34)
[2019-11-21] MEDS: Aspirin Chewable 81 MG TAB PER TUBE SCH (08:34)
[2019-11-21] MEDS: predniSONE 20 MG TAB PER TUBE SCH (08:34)
[2019-11-21] MEDS: Sodium Chloride 0.9% 1,000 ML IV SCH (10:05)
[2019-11-21] MEDS: Vancomycin HCl 1 GM in Premix Bag 1 BAG IVPB SCH (10:05)
--- NOTE | 2019-11-21 12:39 | PDOC.GSPN ---
Surgery Progress Note: Subj - Subjective Narrative: Patient is POD #2, S/P excisional debridement of a stage IV sacral decubitus ulcer with wound vac placement. In the OR, patient was seen to have large amounts of purulent sputum production and was started on Vancomycin and Zosyn for suspected aspiration pneumonia. Patient is doing well at bedside this morning, although is non verbal. Does not appear to be in uncontrollable pain, is breathing comfortably with normal respiratory effort. Wound care will see patient today and wound bed will be reevaluated at wound vac change. Surgery Progress Note: Obj - Vital signs Vital signs: Vital Signs - Most Recent Temp Pulse Resp BP Pulse Ox 97.6 F 69 20 154/79 H 97 11/21/19 11:08 11/21/19 11:08 11/21/19 11:08 11/21/19 11:08 11/21/19 11:08 - Physical Exam General: no distress, well developed Respiratory: normal expansion, normal respiratory effort Psychiatric: other (Non verbal, cooperative) Wound: dressing clean,dry,intact Surgery Progress Note: Results - Labs Result Diagrams: 11/20/19 05:46 11/23/19 05:06 Lab results: Laboratory Results - last 24 hr 11/21/19 11/21/19 11/21/19 00:54 05:09 11:45 POC Glucose 211 H 158 H 205 H Surgery Progress Note: A/P - Plan Plan: Assessment: 1.Sacral decubitus ulcer, stage IV, s/p debridement and wound vac placement 2. Aspiration pneumonia 3. Acute respiratory failure with hypoxia and hypercarbia, managed by primary team 4. Hx of CVA, HTN, moderate malnutrition, oropharyngeal dysphagia, L hemiplegia , and thyroid nodule Plan: Will continue pain management regimen as patient appears to be tolerating wound and pain well. Wound vac currently in place. Wound care team will see patient today for dressing change and wound bed will be re-evaluated. Will continue to follow patient to evaluate wound healing Patient was seen at bedside with Dr Harding on morning rounds today. Plan was discussed with Dr Harding Addendum - Physician - Physician Attestation Date/Time: 11/23/19 2959 I personally performed or re-performed the physical examination and medical decision making. I have verified all student documentation or findings, including history, physical exam and/or medical decision making.
[2019-11-21] MEDS: Atorvastatin Calcium 40 MG TAB PER TUBE SCH (20:41)
[2019-11-21] MEDS: Vancomycin HCl 1.25 GM in Sodium Chloride 0.9% 250 ML 250 ML IVPB SCH (22:06)
--- NOTE | 2019-11-21 23:29 | PDOC.HOSPP ---
- Subjective Encounter Date: 11/21/19 Subjective: Non-verbal. - Objective Vital Signs & Weight: Vital Signs (12 hours) Temp Pulse Resp BP BP Pulse Ox 11/21/19 20:02 92 20 95 11/21/19 20:00 98.2 F 93 18 144/77 H 93 L 11/21/19 15:51 97.5 F L 84 20 123/75 95 Weight Admit Weight 155 lb Weight 155 lb 9.6 oz Most Recent Monitor Data Heart Rate from ECG 101 NIBP 104/61 NIBP BP-Mean 75 Respiration from ECG 32 SpO2 96 I&O: 11/20/19 11/21/19 11/22/19 06:59 06:59 06:59 Intake Total 2400 700 Output Total 203 349 4078 Balance 1450 0 -1450 Result Diagrams: 11/20/19 05:46 11/20/19 05:46 Additional Labs: Accuchecks 11/21/19 11/21/19 11/21/19 20:18 17:07 11:45 POC Glucose 189 H 229 H 205 H 11/21/19 11/21/19 05:09 00:54 POC Glucose 158 H 211 H Hospitalist ROS - Medication Medications: Active Medications Generic Name Dose Route Start Last Admin Trade Name Freq PRN Reason Stop Dose Admin Acetaminophen 650 mg 11/12/19 14:53 11/21/19 08:34 Tylenol PER TUBE 650 mg Q4H PRN Administration Headache/Fever/Mild Pain (1-3) Albuterol/Ipratropium 3 ml 11/12/19 19:00 11/21/19 20:02 Duoneb NEB 3 ml [id number] MIHIR Administration Aspirin 81 mg 11/17/19 09:00 11/21/19 08:34 Aspirin Chewable PER TUBE 81 mg DAILY MIHIR Administration Atorvastatin Calcium 40 mg 11/12/19 21:00 11/21/19 20:41 Lipitor PER TUBE 40 mg HS MIHIR Administration Cholecalciferol 5,000 units 11/13/19 09:00 11/21/19 08:32 Vitamin D3 PO 5,000 units DAILY MIHIR Administration Enoxaparin Sodium 40 mg 11/13/19 09:00 11/21/19 08:32 Lovenox SC 40 mg 0900 MIHIR Administration Famotidine 20 mg 11/12/19 21:00 11/21/19 20:41 Pepcid PER TUBE 20 mg BID MIHIR Administration Insulin Glargine 18 units/ 0.18 mls @ 0 mls/hr 11/13/19 09:00 11/21/19 08:32 Miscellaneous Medication SC 0.18 mls QAM MIHIR Administration Sodium Chloride 1,000 mls @ 75 mls/hr 11/13/19 14:45 11/21/19 10:05 Normal Saline 0.9% IV 1,000 mls .[id number] MIHIR Administration Piperacillin Sod/Tazobactam 100 mls @ 200 mls/hr 11/19/19 18:00 11/21/19 17: 35 Sod 3.375 gm/ Sodium Chloride IVPB 100 mls Q6HR MIHIR Administration Vancomycin HCl 1.25 gm/ Sodium 250 mls @ 166.667 mls/hr 11/21/19 22:00 22:06 Chloride IVPB 250 mls 1000,2200 MIHIR Administration Insulin Human Lispro 0 units 11/12/19 15:10 11/21/19 17:35 Humalog SC 3 unit .MILD SLIDING SCALE PRN Administration Mild Correctional Scale Metoprolol Tartrate 25 mg 11/12/19 21:00 11/21/19 20:41 Lopressor PER TUBE 25 mg BID MIHIR Administration Prednisone 20 mg 11/19/19 09:00 11/21/19 08:34 Prednisone PER TUBE 20 mg DAILY MIHIR Administration Saccharomyces Boulardii 250 mg 11/12/19 21:00 11/21/19 20:42 Florastor PER TUBE 250 mg BID MIHIR Administration - Exam General Appearance: NAD, awake alert Heart: RRR, no murmur, no gallops, no rubs, normal peripheral pulses Respiratory: CTAB, no wheezes, no rales, no ronchi, normal chest expansion, no tachypnea, normal percussion Gastrointestinal: soft, non-tender, non-distended, normal bowel sounds, no palpable masses, no hepatomegaly, no splenomegaly, no bruit Extremities: no cyanosis, no clubbing, no edema Neurological - other findings: Left hemiplegia Musculoskeletal: normal tone Hosp A/P (1) Acute respiratory failure with hypoxia and hypercarbia Code(s): J96.01 - ACUTE RESPIRATORY FAILURE WITH HYPOXIA; J96.02 - ACUTE RESPIRATORY FAILURE WITH HYPERCAPNIA Status: Acute (2) Aspiration pneumonia Code(s): J69.0 - PNEUMONITIS DUE TO INHALATION OF FOOD AND VOMIT Status: Acute (3) Decubitus ulcer of buttock, unstageable Code(s): L89.300 - PRESSURE ULCER OF UNSPECIFIED BUTTOCK, UNSTAGEABLE Status: Acute (4) Pulmonary nodule Code(s): R91.1 - SOLITARY PULMONARY NODULE Status: Acute (5) Thyroid nodule Code(s): E04.1 - NONTOXIC SINGLE THYROID NODULE Status: Acute (6) H/O: CVA (cerebrovascular accident) Code(s): Z86.73 - PRSNL HX OF TIA (TIA), AND CEREB INFRC W/O RESID DEFICITS Status: Chronic (7) HTN (hypertension) Code(s): I10 - ESSENTIAL (PRIMARY) HYPERTENSION Status: Chronic Qualifiers: Hypertension type: essential hypertension Qualified Code(s): I10 - Essential (primary) hypertension (8) Moderate protein-calorie malnutrition Code(s): E44.0 - MODERATE PROTEIN-CALORIE MALNUTRITION Status: Chronic (9) Oropharyngeal dysphagia Code(s): R13.12 - DYSPHAGIA, OROPHARYNGEAL PHASE Status: Chronic (10) Hemiplegia affecting left nondominant side Code(s): G81.94 - HEMIPLEGIA, UNSPECIFIED AFFECTING LEFT NONDOMINANT SIDE Status: Acute Qualifiers: 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 Continuing with supplement oxygen. Intermittent hypoxia. Had large amount of drainage of fluid from the respiratory tract when turned prone for surgery. Cultures are growing Staph aureus. Continue Vanco. Will likely continue to aspirate. Continue the PEG feeds. Discussed disposition with patient's daughter. CM spoke with her and gave a list of hospice organizations. She is apparently not ready to go that route yet. Reviewed the lung nodule. Has spiculations and concerning for cancer. She is in agreement to not pursue workup. He is not a candidate for intervention if it is a cancer. Surgical intervention of the sacral decubitus ulcer. Discussed with surg. Did not require diverting colostomy. Wound Vac in place. May be able to consider going back to SNF with wound care soon.
[2019-11-22] MEDS: Piperacillin/Tazobactam 3.375 GM in Sodium Chloride 0.9% 100 ML IVPB SCH ×5 (01:15→23:42)
[2019-11-22] MEDS: Sodium Chloride 0.9% 1,000 ML IV SCH ×2 (01:16→14:34)
[2019-11-22] MEDS: Acetaminophen 325 MG TAB PER TUBE PRN (08:21)
[2019-11-22] MEDS: predniSONE 20 MG TAB PER TUBE SCH (08:22)
[2019-11-22] MEDS: Metoprolol Tartrate 25 MG TAB PER TUBE SCH ×2 (08:22→20:15)
[2019-11-22] MEDS: Aspirin Chewable 81 MG TAB PER TUBE SCH (08:23)
[2019-11-22] MEDS: Famotidine 20 MG TAB PER TUBE SCH ×2 (08:24→20:16)
[2019-11-22] MEDS: Insulin Glargine 18 UNITS in Pre-Filled Syringe 1 EACH SC SCH (08:26)
[2019-11-22] MEDS: Enoxaparin Sodium 40 MG/0.4 ML SYRINGE SC SCH ×2 (08:26→08:30)
[2019-11-22] MEDS: Saccharomyces boulardii 250 MG CAP PER TUBE SCH ×2 (08:27→20:15)
[2019-11-22] MEDS: Vancomycin HCl 1.25 GM in Sodium Chloride 0.9% 250 ML 250 ML IVPB SCH ×2 (11:05→21:54)
[2019-11-22] MEDS: Atorvastatin Calcium 40 MG TAB PER TUBE SCH (20:16)
[2019-11-22] MEDS: HumaLOG 300 UNITS/3 ML VIAL SC PRN ×2 (20:26→23:50)
--- NOTE | 2019-11-22 21:14 | PDOC.HOSPP ---
- Subjective Encounter Date: 11/22/19 Encounter Time: 14:00 Subjective: no overnight events. This afternoon, has no complaints and feels better overall. Will continue treatments for MRSA pneumonia and sacral decubitus ulcer s/p debridment. - Objective Vital Signs & Weight: Vital Signs (12 hours) Temp Pulse Resp BP Pulse Ox 11/22/19 19:59 98.6 F 102 H 20 141/74 H 95 11/22/19 19:01 96 11/22/19 18:59 95 11/22/19 12:56 91 18 94 L Weight Admit Weight 155 lb Weight 155 lb 9.6 oz Most Recent Monitor Data Heart Rate from ECG 101 NIBP 104/61 NIBP BP-Mean 75 Respiration from ECG 32 SpO2 96 I&O: 11/21/19 11/22/19 11/23/19 06:59 06:59 06:59 Intake Total 700 350 Output Total 700 1450 1325 Balance 0 -1100 -1325 Result Diagrams: 11/20/19 05:46 11/20/19 05:46 Additional Labs: Accuchecks 11/22/19 11/22/19 11/22/19 19:22 15:51 10:44 POC Glucose 232 H 234 H 196 H 11/22/19 11/22/19 05:55 01:10 POC Glucose 165 H 183 H Hospitalist ROS - Review of Systems Constitutional: denies: fever, chills, sweats, weakness, malaise, other Respiratory: denies: cough, dry, shortness of breath, hemoptysis, SOB with excertion, pleuritic pain, sputum, wheezing, other Cardiovascular: denies: chest pain, palpitations, orthopnea, paroxysmal noc. dyspnea, edema, light headedness, other Gastrointestinal: denies: nausea, vomiting, abdominal pain, diarrhea, constipation, melena, hematochezia, other - Medication Medications: Active Medications Generic Name Dose Route Start Last Admin Trade Name Freq PRN Reason Stop Dose Admin Acetaminophen 650 mg 11/12/19 14:53 11/22/19 08:21 Tylenol PER TUBE 650 mg Q4H PRN Administration Headache/Fever/Mild Pain (1-3) Albuterol/Ipratropium 3 ml 11/12/19 19:00 11/22/19 18:59 Duoneb NEB 3 ml [id number] MIHIR Administration Aspirin 81 mg 02/24/20 09:00 11/22/19 08:23 Aspirin Chewable PER TUBE 81 mg DAILY MIHIR Administration Atorvastatin Calcium 40 mg 11/12/19 21:00 11/22/19 20:16 Lipitor PER TUBE 40 mg HS MIHIR Administration Cholecalciferol 5,000 units 11/13/19 09:00 11/22/19 08:23 Vitamin D3 PO 5,000 units DAILY MIHIR Administration Enoxaparin Sodium 40 mg 11/13/19 09:00 11/22/19 08:30 Lovenox SC Not Given 09 [facility]1983 Famotidine 20 mg 11/12/19 21:00 11/22/19 20:16 Pepcid PER TUBE 20 mg BID MIHIR Administration Insulin Glargine 18 units/ 0.18 mls @ 0 mls/hr 11/13/19 09:00 11/22/19 08:26 Miscellaneous Medication SC 0.18 mls QAM MIHIR Administration Sodium Chloride 1,000 mls @ 75 mls/hr 11/13/19 14:45 11/22/19 14:34 Normal Saline 0.9% IV 1,000 mls .[id number] MIHIR Administration Piperacillin Sod/Tazobactam 100 mls @ 200 mls/hr 11/19/19 18:00 11/22/19 17: 37 Sod 3.375 gm/ Sodium Chloride IVPB 100 mls Q6HR MIHIR Administration Vancomycin HCl 1.25 gm/ Sodium 250 mls @ 166.667 mls/hr 11/21/19 22:00 11:05 Chloride IVPB 250 mls 1000,2200 MIHIR Administration Insulin Human Lispro 0 units 11/12/19 15:10 11/22/19 20:26 Humalog SC 3 unit .MILD SLIDING SCALE PRN Administration Mild Correctional Scale Metoprolol Tartrate 25 mg 11/12/19 21:00 11/22/19 20:15 Lopressor PER TUBE 25 mg BID MIHIR Administration Prednisone 20 mg 11/19/19 09:00 11/22/19 08:22 Prednisone PER TUBE 20 mg DAILY MIHIR Administration Saccharomyces Boulardii 250 mg 11/12/19 21:00 11/22/19 20:15 Florastor PER TUBE 250 mg BID MIHIR Administration - Exam General Appearance: NAD, awake alert Neck: no JVD Heart: RRR, no murmur, no gallops Respiratory: CTAB, no wheezes, no rales, no ronchi Gastrointestinal: soft, non-tender, non-distended, normal bowel sounds Gastrointestinal - other findings: PEG in place and feeding at 60cc/hr Extremities: no edema Neurological - other findings: left hemiplegia Psychiatric: normal affect, normal behavior, A&O x 3 Hosp A/P - Plan #MRSA pneumonia - continue vanc, stop zosyn based on final bronch cultures; will transition to oral pending susceptibilities #Stage IV decubitus ulcer s/p debridment - wound vac in place, wound care onboard #stroke, dysphagia - will continue tube feedings rest of management unchanged Disposition/PPx DNAR; daughter does not wish hospice care at this point GI PPx : pepcid DVT PPx: lovenox
[2019-11-23] MEDS: Sodium Chloride 0.9% 1,000 ML IV SCH ×2 (03:17→10:39)
[2019-11-23 06:20] LABS: Anion Gap 10 mmol/L (10-20); BUN (Urea Nitrogen) 12 mg/dL (8.4-25.7); Calc. Creatinine Clearance 133 mL/min (70-130); Calcium 8.1 mg/dL (7.8-10.44); Carbon Dioxide 25 mmol/L (23-31); Chloride 105 mmol/L (98-107); Estimated GFR-MDRD Greater than 90; Glucose 138 mg/dL (83-110); Magnesium 1.7 mg/dL (1.6-2.6); Potassium 3.9 mmol/L (3.5-5.1); Sodium 136 mmol/L (136-145)
[2019-11-23] MEDS: Saccharomyces boulardii 250 MG CAP PER TUBE SCH ×2 (09:23→22:22)
[2019-11-23] MEDS: predniSONE 20 MG TAB PER TUBE SCH (09:23)
[2019-11-23] MEDS: Famotidine 20 MG TAB PER TUBE SCH ×2 (09:23→22:22)
[2019-11-23] MEDS: Metoprolol Tartrate 25 MG TAB PER TUBE SCH ×2 (09:23→22:22)
[2019-11-23] MEDS: Aspirin Chewable 81 MG TAB PER TUBE SCH (09:23)
[2019-11-23] MEDS: Insulin Glargine 18 UNITS in Pre-Filled Syringe 1 EACH SC SCH (09:24)
[2019-11-23 09:31] LABS: Vancomycin, Trough 12.1 ug/mL
[2019-11-23] MEDS: Vancomycin HCl 1.25 GM in Sodium Chloride 0.9% 250 ML 250 ML IVPB SCH (10:30)
[2019-11-23] MEDS: Enoxaparin Sodium 40 MG/0.4 ML SYRINGE SC SCH (10:43)
[2019-11-23] MEDS ORDERED: Vancomycin 1.5 GRAM/300 ML BAG 1.5 GM in Premix Bag 1 BAG IVPB SCH (11:00)
[2019-11-23] MEDS: HumaLOG 300 UNITS/3 ML VIAL SC PRN ×2 (11:53→18:42)
--- NOTE | 2019-11-23 17:17 | PDOC.HOSPP ---
- Subjective Encounter Date: 11/23/19 Encounter Time: 09:00 Subjective: no overnight events. This morning, responds to voice and nods head to questions but appears mildly confused. Has no complaints. Wound vac detached will put tegaderm but will require replacement by wound care MIGUEL ANGEL. - Objective Vital Signs & Weight: Vital Signs (12 hours) Temp Pulse Resp BP Pulse Ox 11/23/19 13:36 98.0 F 81 20 153/79 H 95 11/23/19 12:16 82 18 95 11/23/19 08:22 94 L 11/23/19 08:00 98.1 F 96 24 H 149/79 H 94 L 11/23/19 06:44 85 18 91 L Weight Admit Weight 155 lb Weight 155 lb 9.6 oz Most Recent Monitor Data Heart Rate from ECG 101 NIBP 104/61 NIBP BP-Mean 75 Respiration from ECG 32 SpO2 96 I&O: 11/22/19 11/23/19 11/24/19 06:59 06:59 06:59 Intake Total 350 350 350 Output Total 1450 2075 Balance -1100 -1725 350 Result Diagrams: 11/20/19 05:46 11/23/19 05:06 Additional Labs: Accuchecks 11/23/19 11/23/19 11/23/19 16:59 11:33 04:06 POC Glucose 197 H 159 H 155 H 11/22/19 11/22/19 23:49 19:22 POC Glucose 193 H 232 H Hospitalist ROS - Review of Systems Respiratory: denies: cough, dry, shortness of breath, hemoptysis, SOB with excertion, pleuritic pain, sputum, wheezing, other Cardiovascular: denies: chest pain, palpitations, orthopnea, paroxysmal noc. dyspnea, edema, light headedness, other Gastrointestinal: denies: nausea, vomiting, abdominal pain, diarrhea, constipation, melena, hematochezia, other Genitourinary: denies: hematuria - Medication Medications: Active Medications Generic Name Dose Route Start Last Admin Trade Name Freq PRN Reason Stop Dose Admin Acetaminophen 650 mg 11/12/19 14:53 11/22/19 08:21 Tylenol PER TUBE 650 mg Q4H PRN Administration Headache/Fever/Mild Pain (1-3) Albuterol/Ipratropium 3 ml 11/12/19 19:00 11/23/19 12:16 Duoneb NEB 3 ml [id number] MIHIR Administration Aspirin 81 mg 11/17/19 09:00 11/23/19 09:23 Aspirin Chewable PER TUBE 81 mg DAILY MIHIR Administration Atorvastatin Calcium 40 mg 11/12/19 21:00 11/22/19 20:16 Lipitor PER TUBE 40 mg HS MIHIR Administration Cholecalciferol 5,000 units 11/13/19 09:00 11/23/19 09:23 Vitamin D3 PO 5,000 units DAILY MIHIR Administration Enoxaparin Sodium 40 mg 11/13/19 09:00 11/23/19 10:43 Lovenox SC 40 mg 0900 MIHIR Administration Famotidine 20 mg 11/12/19 21:00 11/23/19 09:23 Pepcid PER TUBE 20 mg BID MIHIR Administration Insulin Glargine 18 units/ 0.18 mls @ 0 mls/hr 11/13/19 09:00 11/23/19 09:24 Miscellaneous Medication SC 0.18 mls QAM MIHIR Administration Sodium Chloride 1,000 mls @ 75 mls/hr 11/13/19 14:45 11/23/19 10:39 Normal Saline 0.9% IV 1,000 mls .[id number] MIHIR Administration Vancomycin HCl 1.5 gm/ Device 300 mls @ 200 mls/hr 11/23/19 11:00 11/23/19 11 :54 IVPB 300 mls 1100,2300 MIHIR Administration Insulin Human Lispro 0 units 11/12/19 15:10 11/23/19 11:53 Humalog SC 2 unit .MILD SLIDING SCALE PRN Administration Mild Correctional Scale Metoprolol Tartrate 25 mg 11/12/19 21:00 11/23/19 09:23 Lopressor PER TUBE 25 mg BID MIHIR Administration Prednisone 20 mg 11/19/19 09:00 11/23/19 09:23 Prednisone PER TUBE 20 mg DAILY MIHIR Administration Saccharomyces Boulardii 250 mg 11/12/19 21:00 11/23/19 09:23 Florastor PER TUBE 250 mg BID MIHIR Administration - Exam General Appearance: NAD, awake alert General - other findings: appears mildly confused Eye: PERRL, anicteric sclera ENT: normocephalic atraumatic Neck: no JVD Heart: RRR, no murmur, no gallops, no rubs, normal peripheral pulses Respiratory: CTAB, no wheezes, no rales, rhonchi Respiratory - other findings: 89% on RA Gastrointestinal: soft, non-tender, non-distended, normal bowel sounds Gastrointestinal - other findings: PEG in place and functional, 60cc/hr Extremities: no edema Skin - other findings: wound care detached; stage 4 decubitus appears noninfected with granulation Psychiatric - other findings: alert, nonverbal Hosp A/P - Plan #MRSA pneumonia - continue vanc; CM consulted for linezolid supply for 4 additional treatment days; otherwise will require PICC and vancomycin #Stage IV decubitus ulcer s/p debridment - wound vac detached; will request wound care to replace to avoid infection #stroke, dysphagia - will continue tube feedings rest of management unchanged Disposition/PPx DNAR; daughter does not wish hospice care at this point GI PPx : pepcid DVT PPx: lovenox
[2019-11-23] MEDS: Atorvastatin Calcium 40 MG TAB PER TUBE SCH (22:22)
[2019-11-23] MEDS: Vancomycin 1.5 GRAM/300 ML BAG 1.5 GM in Premix Bag 1 BAG IVPB SCH (23:14)
[2019-11-24] MEDS: Sodium Chloride 0.9% 1,000 ML IV SCH ×2 (04:04→17:19)
[2019-11-24 06:15] LABS: Magnesium 1.7 mg/dL (1.6-2.6)
[2019-11-24] MEDS: Famotidine 20 MG TAB PER TUBE SCH (08:03)
[2019-11-24] MEDS: Insulin Glargine 18 UNITS in Pre-Filled Syringe 1 EACH SC SCH (08:04)
[2019-11-24] MEDS: predniSONE 20 MG TAB PER TUBE SCH (08:04)
[2019-11-24] MEDS: Enoxaparin Sodium 40 MG/0.4 ML SYRINGE SC SCH (08:04)
[2019-11-24] MEDS: Metoprolol Tartrate 25 MG TAB PER TUBE SCH ×2 (08:04→20:46)
[2019-11-24] MEDS: Aspirin Chewable 81 MG TAB PER TUBE SCH (08:04)
[2019-11-24] MEDS: Saccharomyces boulardii 250 MG CAP PER TUBE SCH (08:04)
[2019-11-24] MEDS ORDERED: Magnesium Oxide 250 MG TAB PER TUBE SCH (09:00)
[2019-11-24] MEDS: Acetaminophen 325 MG TAB PER TUBE PRN (09:58)
[2019-11-24] MEDS: Vancomycin 1.5 GRAM/300 ML BAG 1.5 GM in Premix Bag 1 BAG IVPB SCH (10:10)
[2019-11-24] MEDS ORDERED: Haloperidol Lactate 5 MG/ML VIAL SLOW IVP PRN (15:01)
--- NOTE | 2019-11-24 15:03 | PDOC.EVN ---
Event Note - Event Note Event Note: conversation conducted with patient's daughter and MPOA at bedside, who decided to transition to comfort care including discontinuation of antibiotics and wound vacuum. Patient was transitioned and hospice was consulted for further comfort measures.
[2019-11-24] MEDS: Morphine 2 MG/ML SYRINGE SLOW IVP PRN (17:19)
[2019-11-24 22:55] LABS: Vancomycin, Trough 14.5 ug/mL
--- NOTE | 2019-11-24 23:15 | PDOC.HOSPP ---
- Subjective Encounter Date: 11/24/19 Encounter Time: 10:00 Subjective: no overnight events. This morning, patient appears more confused, daughter at bedside decided to transition to comfort care. - Objective Vital Signs & Weight: Vital Signs (12 hours) Temp Pulse Resp BP BP Pulse Ox 11/24/19 20:00 97.9 F 68 18 143/77 H 98 11/24/19 17:51 97.9 F 87 20 128/89 95 11/24/19 14:16 82 20 97 11/24/19 12:00 97.6 F 84 20 131/74 99 Weight Admit Weight 155 lb Weight 155 lb 9.6 oz Most Recent Monitor Data Heart Rate from ECG 101 NIBP 104/61 NIBP BP-Mean 75 Respiration from ECG 32 SpO2 96 I&O: 11/23/19 11/24/19 11/25/19 06:59 06:59 06:59 Intake Total 350 3320 700 Output Total 2075 2400 Balance -1725 920 700 Result Diagrams: 11/20/19 05:46 11/24/19 05:02 Additional Labs: Accuchecks 11/24/19 11/24/19 11/24/19 21:21 16:33 11:46 POC Glucose 202 H 235 H 169 H 11/24/19 11/24/19 06:11 01:35 POC Glucose 140 H 173 H Hospitalist ROS - Review of Systems ROS unobtainable: due to mental status (confused, nonverbal) - Medication Medications: Active Medications Generic Name Dose Route Start Last Admin Trade Name Freq PRN Reason Stop Dose Admin Acetaminophen 650 mg 11/12/19 14:53 11/24/19 09:58 Tylenol PER TUBE 650 mg Q4H PRN Administration Headache/Fever/Mild Pain (1-3) Sodium Chloride 1,000 mls @ 75 mls/hr 11/13/19 14:45 11/24/19 17:19 Normal Saline 0.9% IV 1,000 mls .[id number] MIHIR Administration Insulin Human Lispro 0 units 11/12/19 15:10 11/23/19 18:42 Humalog SC 2 unit .MILD SLIDING SCALE PRN Administration Mild Correctional Scale Metoprolol Tartrate 25 mg 11/12/19 21:00 11/24/19 20:46 Lopressor PER TUBE 25 mg BID MIHIR Administration Morphine Sulfate 2 mg 11/24/19 15:00 11/24/19 17:19 Morphine SLOW IVP 2 mg Q1H PRN Administration Dyspnea - Exam General Appearance: NAD, ill appearing General - other findings: drowsy ENT: moist mucosa Neck: no JVD Heart: RRR, no murmur, no gallops Heart - other findings: cold extremities Respiratory: CTAB, no wheezes, no rales, no ronchi, normal chest expansion Gastrointestinal: soft, non-tender, non-distended, normal bowel sounds Gastrointestinal - other findings: PEG in place with continuous feeding Extremities: no edema Psychiatric: somnolent Hosp A/P - Plan #MRSA pneumonia - stopped antibiotics as per daughter's request #Stage IV decubitus ulcer s/p debridment - wound vac removed #stroke, dysphagia - will continue tube feedings Hospice consulted, morphine and haldol started Disposition/PPx DNAR; transition to comfort care per daughter (and MPOA) request GI PPx : no Ix DVT PPx: stopped per daughter's request
[2019-11-25 07:58] VITALS: TEMP 97.5
[2019-11-25] MEDS: Sodium Chloride 0.9% 1,000 ML IV SCH (08:20)
[2019-11-25] MEDS: Metoprolol Tartrate 25 MG TAB PER TUBE SCH (08:20)
[2019-11-25] MEDS: Morphine 2 MG/ML SYRINGE SLOW IVP PRN (11:24)
[2019-11-25 16:18] VITALS: BP 132/81
--- NOTE | 2019-11-26 13:39 | DIS ---
DATE OF ADMISSION: 11/12/2019 DATE OF DISCHARGE: 11/25/2019 Mr. Carmona is a 74-year-old male with a medical history of sepsis, pneumonia, buttock decubitus ulcers, and acute encephalopathy, recently admitted to [facility] and discharged to [facility], who presented with shortness of breath. He was diagnosed with acute hypoxic respiratory failure, aspiration pneumonia which is recurrent, sepsis, and stage IV sacral decubitus ulcer, for which he underwent excisional debridement. The patient was treated with antibiotics and initially improved. However, he has severe dysphagia and inability to protect his airways caused him to be unable to get rid of secretions and he has repeated aspiration pneumonia. He remained unresponsive throughout most of his inpatient stay. The daughter and DPOA were requesting that the patient be transitioned to comfort care concerning recurrent recent hospitalization and the patient's poor prognosis. The patient was then transitioned to comfort care and aggressive measures including antibiotics were stopped based on the daughter's request. He was discharged for further comfort measures by inpatient hospice. Job ID: [id number]
== END 2019-11-25 16:08 | disposition hospice, inpatient (51) | DRG 853 ==
LOC: ERS 12:21 → IMCU/EMU 17:25 → T4-B 11-13 15:08
PROVIDERS: ADMIT Internal Medicine; ATTEND Internal Medicine
PROC: 5A09357 Assistance with Respiratory Ventilation, Less than 24 Consecutive Hours, Continuous Positive Airway Pressure (ICD-10-PCS; 2019-11-12)
PROC: 0JB70ZZ Excision of Back Subcutaneous Tissue and Fascia, Open Approach (ICD-10-PCS; principal; 2019-11-19)
DX: A41.9 Sepsis, unspecified organism (principal); L89.154 Pressure ulcer of sacral region, stage 4; Z66 Do not resuscitate; Z51.5 Encounter for palliative care; J96.01 Acute respiratory failure with hypoxia; J69.0 Pneumonitis due to inhalation of food and vomit; J96.02 Acute respiratory failure with hypercapnia; J15.212 Pneumonia due to Methicillin resistant Staphylococcus aureus; J44.1 Chronic obstructive pulmonary disease with (acute) exacerbation; E44.0 Moderate protein-calorie malnutrition; I69.354 Hemiplegia and hemiparesis following cerebral infarction affecting left non-dominant side; J44.0 Chronic obstructive pulmonary disease with (acute) lower respiratory infection; E78.5 Hyperlipidemia, unspecified; Y95 Nosocomial condition; R13.12 Dysphagia, oropharyngeal phase; E04.1 Nontoxic single thyroid nodule; R91.1 Solitary pulmonary nodule; Z87.891 Personal history of nicotine dependence; Z85.828 Personal history of other malignant neoplasm of skin; Z79.899 Other long term (current) drug therapy; Z79.82 Long term (current) use of aspirin; Z87.01 Personal history of pneumonia (recurrent); Z68.23 Body mass index [BMI] 23.0-23.9, adult; Z88.8 Allergy status to other drugs, medicaments and biological substances; Z93.1 Gastrostomy status; Z79.4 Long term (current) use of insulin
CPT/HCPCS: 36415; 36416; 51702; 71045; 71275; 80048; 80053; 80202; 81003; 81015; 83605; 83735; 83880; 84100; 84132; 84484; 85007; 85025; 85027; 85610; 86850; 86900; 86901; 87040; 87070; 87077; 87149; 87186; 87205; 88305; 93005; 94640; 94660; 94760; 96365; 96367; 99292; J0690; J0692; J1650; J1815; J1956; J2001; J2270; J2543; J2704; J3010; J3370; J3420; J3490; J7050; J7512; J7620; Q9967